=== PATIENT | female | born 1990 | race Caucasian/White ===

== ENCOUNTER 2020-06-11 07:49 | Outpatient (CLI) | payer OTHER, SELFPAY ==
--- NOTE | ~2020-06-11 | US_ITS ---
EXAMINATION: US right upper quadrant DATE: 06/11/2020 08:21 INDICATION: Right upper quadrant abdominal pain. TECHNIQUE: Multiple grayscale and Doppler ultrasound images of the abdomen were obtained. COMPARISON: None FINDINGS: The visualized portions of the head, body, and tail of the pancreas are normal. The liver i s normal without focal lesion. There is normal flow in main portal vein. The gallbladder is contracte d. No gallstones, gallbladder wall thickening, or sonographic Sheriff sign. IMPRESSION: 1. Normal right upper quadrant ultrasound. Reviewed, dictated and finalized at location A.
== END 2020-06-11 07:50 | disposition home or self-care (01) ==
PROVIDERS: PCP Family Medicine; Visit Provider Physician Assistant
DX: R10.11 Right upper quadrant pain (principal)
CPT/HCPCS: 76705

== ENCOUNTER 2020-07-23 10:59 | Emergency (ER) | payer OTHER, SELFPAY ==
--- NOTE | ~2020-07-23 | XR_ITS ---
EXAMINATION: XR chest 2V DATE: 07/23/2020 12:24 INDICATION: Right-sided chest pain TECHNIQUE: PA and lateral views of the chest are obtained. COMPARISON: None available FINDINGS: The lungs are free of acute opacities. There is no pleural effusion or pneumothorax. The ca rdiomediastinal silhouette is normal. The visualized bones and soft tissues are unremarkable. IMPRESSION: 1. No acute cardiopulmonary abnormality. Reviewed, dictated and finalized at location A. ASSEMBLER
[2020-07-23 11:18] VITALS: BP 138/86; PULSE 93; RESP 18; TEMP 37; O2SAT 100
--- NOTE | 2020-07-23 12:11 | ECG_ITS ---
Measurements Intervals [place] Rate: 61 P: 47 NM: 144 QRS: 52 QRSD: 97 T: 49 QT: 405 QTc: 408 Interpretive Statements SINUS RHYTHM INCOMPLETE RIGHT BUNDLE BRANCH BLOCK BASELINE ARTIFACT- I, II, III, AVR, AVL, AVF BORDERLINE ECG Electronically Signed On 07-23-2020 15:09:43 [facility] by Lloyd Vargas D.O.
[2020-07-23] MEDS: KETOROLAC 15 MG/ML VIAL (*BKC) IV PUSH (12:15)
[2020-07-23 12:36] LABS: Basophils Percent Auto 0.3 % (0.2-1.2); Eosinophils Percent Auto 0.3 % (0-4.4); Hematocrit 40.3 % (37.0-47.0); Hemoglobin 13.6 g/dL (12.0-15.0); Immature Granulocyte Absolute 0.02 K/mm3 (0.00-0.031); Immature Granulocyte Percent A 0.2 % (0-0.5); Lymphocytes Absolute Auto 2.26 K/mm3 (0.9-3.2); Lymphocytes Percent Auto 24.6 % (18.3-44.2); Mean Corpuscular HGB Conc 33.7 g/dl (32-36); Mean Corpuscular Hemoglobin 29.4 pg (26-34); Mean Corpuscular Volume 87.2 fl (80-100); Mean Platelet Volume 9.5 fl (7.4-10.4); Monocytes Absolute Auto 0.4 K/mm3 (0.1-0.6); Monocytes Percent Auto 4.2 % (2.6-8.5); Neutrophils Absolute Auto 6.5 K/mm3 (1.3-6.7); Neutrophils Percent Auto 70.4 % (45.5-73.1); Platelet Count Result 315 k/mm3 (150-375); Red Blood Count 4.62 M/mm3 (4.2-5.4); Red Cell Distribution Width 12.4 % (11.5-14.5); White Blood Count 9.2 K/mm3 (4.5-10.0)
[2020-07-23 12:49] LABS: Alanine Aminotransferase 16 U/L (4-35); Albumin Level 4.6 g/dL (3.5-5.1); Alkaline Phosphatase 74 U/L (38-126); Anion Gap 9 mmol/L (8-16); Aspartate Amino Transferase 21 U/L (14-36); Bilirubin,Total 0.5 mg/dL (0.2-1.3); Blood Urea Nitrogen 11 mg/dL (7-17); Calcium 9.6 mg/dL (8.4-10.2); Carbon Dioxide 26 mmol/L (22-30); Chloride 107 mmol/L (98-107); Estimated CRCL calculation 78 ml/min; Estimated Glomerular Filt Rate > 60; Glucose 88 mg/dL (65-105); Potassium 4.1 mmol/L (3.4-5.0); Sodium 142 mmol/L (137-145)
[2020-07-23 13:00] LABS: D Dimer < 0.22 ug/mL (<0.48)
--- NOTE | 2020-07-23 13:29 | ED.GENADULT ---
HPI - General Adult General Chief complaint: Unspecified Stated complaint: right rib pain/dif breatthing Time Seen by Provider: 07/23/20 11:27 Source: patient Mode of arrival: ambulatory Limitations: no limitations History of Present Illness HPI narrative: This patient is a 30 year old female who presents for evaluation of right lateral rib pain. Patient reports pain for 1.5 weeks. She describes her pain has sharp and worse with movement and breathing. She has been taking ibuprofen intermittently for her pain. Today she states he had no improvement with ibuprofen. She denies cough or fever. She reports difficulty breathing due to her pain. She denies leg swelling, calf pain or history of DVt. Related Data Allergies Allergy/AdvReac Type Severity Reaction Status Date / Time amoxicillin Allergy Intermediate SWELLING Verified 07/23/20 11:28 metronidazole Allergy Intermediate SWELLING Verified 07/23/20 11:28 bee pollen Allergy Mild Swelling Verified 07/23/20 11:28 Penicillins Allergy Mild SWELLING Verified 07/23/20 11:28 codeine Allergy Itching Verified 07/23/20 11:28 Review of Systems Review of Systems: All systems reviewed & are unremarkable except as noted in HPI and below Constitutional: Constitutional: Denies fatigue and Denies fever(s) Cardiovascular: Cardiovascular: Denies lightheadedness, Denies radiating jaw, neck or arm pain and Denies palpitations Respiratory: Respiratory: Denies chest congestion, Denies cough, Reports pain on inspiration and Reports pain with cough Gastrointestinal: Gastrointestinal: Denies abdominal pain PMFSH Past Medical History Medical History (Updated 07/23/20 @ 13:49 by Skylar Mosher MD) Patient denies medical problems Social History Social History (Updated 07/23/20 @ 13:41 by Skylar Mosher MD) Tobacco type: e-cigarettes/vaping Substance use type: marijuana Gender identity (if verbalized by the patient): Female Exam Const: General: cooperative and healthy appearing Orientation/consciousness: oriented to person, oriented to place, oriented to time and patient oriented x3 HENMT: Head: normocephalic and atraumatic Face and sinus: face symmetric Resp: Effort & Inspection: normal respiratory effort and able to speak in complete sentences GI: Inspection: normal to inspection GI Palp: No abdominal tenderness, Yes Soft to palpation, No Tenderness to palpation present (GI), No Guarding due to palpation present (GI) and No Rigid due to palpation Back/Spine/Pelvis: Back: no CVA tenderness Skin: General skin exam: normal color and no rashes or lesions noted Neuro: General: patient oriented x3 Cranial nerves: Yes CN's II-XII intact bilaterally Motor exam (neuro): 5/5 motor strength present throughout Sensory Exam: normal sensation Course Reevaluation(s) Reevaluation #1: I discussed with patient that labs and xray was unremarkable. She is negative for PE. Date: 07/23/20 Time: 13:44 Vital Signs Vital signs: Vital Signs Temperature 98.6 F 07/23/20 11:18 Pulse Rate 93 07/23/20 11:18 Respiratory Rate 18 07/23/20 11:18 Blood Pressure 138/86 07/23/20 11:18 Pulse Oximetry 100 07/23/20 11:18 Temperature 98.6 F 07/23/20 11:18 Pulse Rate 85 07/23/20 14:02 Respiratory Rate 17 07/23/20 14:02 Blood Pressure 128/74 07/23/20 14:02 Pulse Oximetry 98 07/23/20 14:02 Medical Decision Making Vital Signs Vital Signs: Vital Signs Temperature 98.6 F 07/23/20 11:18 Pulse Rate 93 07/23/20 11:18 Respiratory Rate 18 07/23/20 11:18 Blood Pressure 138/86 07/23/20 11:18 Pulse Oximetry 100 07/23/20 11:18 Temperature 98.6 F 07/23/20 11:18 Pulse Rate 85 07/23/20 14:02 Respiratory Rate 17 07/23/20 14:02 Blood Pressure 128/74 07/23/20 14:02 Pulse Oximetry 98 07/23/20 14:02 Lab Data Lab results reviewed: Yes I reviewed the patient's lab results. Result diagrams: 07/23/20 12:28
[2020-07-23 14:02] VITALS: BP 128/74; PULSE 85; RESP 17; O2SAT 98
== END 2020-07-23 14:03 | disposition home or self-care (01) ==
PROVIDERS: Emergency Provider General Practice; PCP Family Medicine
DX: R07.9 Chest pain, unspecified (principal); F17.290 Nicotine dependence, other tobacco product, uncomplicated; I45.10 Unspecified right bundle-branch block
CPT/HCPCS: 36415; 71046; 80053; 81025; 85025; 85380; 93005; 96374; 99284; J1885

== ENCOUNTER 2023-11-12 13:25 | Emergency (ER) | payer OTHER, SELFPAY ==
--- NOTE | ~2023-11-12 | CT_ITS ---
EXAMINATION: CT abdomen pelvis w con INDICATION: Left flank pain TECHNIQUE: Computed tomographic images of the abdomen and pelvis were obtained after the administrati on of 100 cc of Omnipaque 350 intravenous contrast. The dose-length product (DLP) was 259.07 mGy-cm. Automated exposure control and iterative reconstruction technique were employed. COMPARISON: None available FINDINGS: The lung bases are clear. The heart size is normal. The liver, spleen, pancreas, gallbladde r, and adrenal glands are normal. The kidneys are unremarkable. No pathologically enlarged abdominal or pelvic lymph nodes are identified. No free intraperitoneal gas or evidence of bowel obstruction. A n IUD is present in expected position. IMPRESSION: 1. No CT correlate for the patient's symptoms. Reviewed, dictated and finalized at location B. ETIC INTERN
[2023-11-12 13:29] VITALS: BP 131/88; PULSE 77; RESP 20; TEMP 36.9; O2SAT 100
--- NOTE | 2023-11-12 13:58 | ED.BACK ---
HPI - Back Pain/Injury General Chief Complaint: Urogenital-Female Stated Complaint: kidney stone Time Seen by Provider: 11/12/23 13:43 Source: patient Mode of arrival: ambulatory Limitations: no limitations History of Present Illness HPI Narrative: This is a 33-year-old female that presents to the emergency department for left flank pain. Ongoing over the last couple of days. No known injuries or trauma. No known alleviating or exacerbating factors. The pain is associated with nausea. Denies fevers, vomiting, dysuria, or hematuria. Related Data Allergies Allergy/AdvReac Type Severity Reaction Status Date / Time amoxicillin Allergy Intermediate SWELLING Verified 11/12/23 14:30 metronidazole Allergy Intermediate SWELLING Verified 11/12/23 14:30 bee pollen Allergy Mild Swelling Verified 11/12/23 14:30 Penicillins Allergy Mild SWELLING Verified 11/12/23 14:30 codeine Allergy Itching Verified 11/12/23 14:30 Review of Systems Review of Systems: CONSTITUTIONAL: Denies fever GASTROINTESTINAL: Denies abdominal pain, nausea, vomiting GENITOURINARY: Denies dysuria or hematuria. SKIN: Denies rash MUSCULOSKELETAL: Reports back pain NEUROLOGIC: Denies numbness, or weakness. All systems reviewed & are unremarkable except as noted in HPI and below PMFSH Past Medical History Medical History (Updated 11/12/23 @ 16:26 by Yara Almanza PA-C) Patient denies medical problems Social History Social History (Updated 07/23/20 @ 13:41 by Skylar Mosher MD) Tobacco type: e-cigarettes/vaping Substance use type: marijuana Gender identity (if verbalized by the patient): Female Exam Narrative: GENERAL: Well-appearing, well-nourished, and in no acute distress. HEAD: Normocephalic, atraumatic. EYES: EOMI. CHEST: Clear to auscultation. No respiratory distress. No wheezes rales or rhonchi HEART: Regular rate and rhythm. No murmur heard. Normal peripheral pulses. ABDOMEN: Soft, nontender, nondistended, normal active bowel sounds. No CVA tenderness BACK: No midline spinal tenderness EXTREMITIES: Normal range of motion. No edema. Normal gait SKIN: Warm, dry, no rash. NEURO: No focal deficits. Alert and oriented x3. PSYCH: Normal mood and affect Course Course Emergency Course: Patient updated on her workup and agrees with plan of care Vital Signs Vital signs: Vital Signs Temperature 98.4 F 11/12/23 13:29 Pulse Rate 77 11/12/23 13:29 Respiratory Rate 20 11/12/23 13:29 Blood Pressure 131/88 11/12/23 13:29 Pulse Oximetry 100 11/12/23 13:29 Oxygen Delivery Room Air 11/12/23 13:29 Temperature 98.4 F 11/12/23 13:29 Pulse Rate 77 11/12/23 13:29 Respiratory Rate 20 11/12/23 13:29 Blood Pressure 131/88 11/12/23 13:29 Pulse Oximetry 100 11/12/23 13:29 Oxygen Delivery Room Air 11/12/23 13:29 MDM - Back Pain/Injury MDM Narrative Medical decision making narrative: Patient presents to the emergency department for left flank pain ongoing over the last couple of days. She is afebrile and nontoxic appearing. Her vitals are stable. She is neurologically intact. CBC metabolic panel without concerning findings. UA without evidence of infection. test is negative. CT abdomen and pelvis is without acute findings. Patient was updated on her workup and agrees with plan of care. She is to follow up with her primary provider. She was given warnings to return to the ER Differential Diagnosis Differential diagnosis: Likely lumbar radiculopathy, strain of lumbar region and renal colic Lab Data Attestation: I reviewed the patient's lab results. 11/12/23 14:03 11/12/23 14:03 Labs: Lab Results 11/12/23 Range/Units 14:03 WBC 7.8 (4.5-10.0) K/mm3 RBC 4.78 (4.2-5.4) M/mm3 Hgb 14.5 (12.0-15.0) g/dL Hct 43.3 (37.0-47.0) % MCV 90.6 (80-100) fl MCH 30.3 (26-34) pg MCHC 33.5 (32-36) g/dl RDW 12.4 (11.5-14.5) % Plt Co
[2023-11-12 14:21] LABS: Basophils Percent Auto 0.4 % (0.2-1.2); Eosinophils Absolute Auto 0.1 K/mm3 (0-0.3); Eosinophils Percent Auto 0.8 % (0-4.4); Hematocrit 43.3 % (37.0-47.0); Hemoglobin 14.5 g/dL (12.0-15.0); Immature Granulocyte Absolute 0.02 K/mm3 (0.00-0.031); Immature Granulocyte Percent A 0.3 % (0-0.5); Lymphocytes Absolute Auto 2.79 K/mm3 (0.9-3.2); Mean Corpuscular HGB Conc 33.5 g/dl (32-36); Mean Corpuscular Hemoglobin 30.3 pg (26-34); Mean Corpuscular Volume 90.6 fl (80-100); Mean Platelet Volume 9.7 fl (7.4-10.4); Monocytes Absolute Auto 0.3 K/mm3 (0.1-0.6); Monocytes Percent Auto 4.4 % (2.6-8.5); Neutrophils Absolute Auto 4.5 K/mm3 (1.3-6.7); Neutrophils Percent Auto 58.1 % (45.5-73.1); Platelet Count Result 319 k/mm3 (150-375); Red Blood Count 4.78 M/mm3 (4.2-5.4); Red Cell Distribution Width 12.4 % (11.5-14.5); White Blood Count 7.8 K/mm3 (4.5-10.0)
[2023-11-12] MEDS: ACETAMINOPHEN 500 MG TABLET 1000 MG PO (14:22)
[2023-11-12 14:24] LABS: Appearance Urine Clear (Clear); Bilirubin Urine Negative (Negative); Blood Urine Negative (Negative); Color Urine Yellow (Yellow); Glucose Urine UA Negative (Negative); Ketones Urine Negative (Negative); Leukocyte Esterase Ur Negative LEU/UL (Negative); Nitrate Urine Negative (Negative); Protein Urine Negative (Negative); Specific Grav Ur 1.008 (1.001-1.035); Urobilinogen Urine 0.2 mg/dL (<2.0); pH Urine 6.5 (5.0-9.0)
[2023-11-12 14:32] LABS: Add Urine Microscopic? NO; Alanine Aminotransferase 27 U/L (6-35); Albumin Level 4.9 g/dL (3.5-5.1); Alkaline Phosphatase 59 U/L (38-126); Anion Gap 6 mmol/L (8-16); Aspartate Amino Transferase 33 U/L (14-36); Bilirubin,Total 0.9 mg/dL (0.2-1.3); Blood Urea Nitrogen 12 mg/dL (7-17); Calcium 9.8 mg/dL (8.4-10.2); Carbon Dioxide 27 mmol/L (22-30); Chloride 103 mmol/L (98-107); Estimated CRCL calculation 76 ml/min; Estimated Glomerular Filt Rate > 60; Glucose 82 mg/dL (65-110); Lipase 93 U/L (23-300); Potassium 4.1 mmol/L (3.4-5.0); Sodium 136 mmol/L (137-145)
== END 2023-11-12 16:37 | disposition home or self-care (01) ==
PROVIDERS: Emergency Provider Physician Assistant; PCP Family Medicine
DX: R10.9 Unspecified abdominal pain (principal); F17.290 Nicotine dependence, other tobacco product, uncomplicated
CPT/HCPCS: 36415; 74177; 80053; 81003; 81025; 83690; 85025; 99284; A9270; Q9967

== ENCOUNTER 2024-12-01 08:29 | Outpatient (CLI) | payer OTHER, SELFPAY ==
--- OUTSIDE RECORDS SUMMARY | 2024-12-01 08:51 | XMS_ITS | Data Portability ---
Author Organization [facility] Winsome Magdaleno Address [address] [place] [address] Care Team Providers Care Medieval English Literature Professor Name Role Phone SANATERRY Primary Care Provider [phone] EULA CARDOSO Primary Care Provider Unavailabl e Assessment Encounter Date Assessment Date Assessment LastModified by Organization Details LastModified Time 04/10/2022 04/10/2022 20 lbb weight loss in 2 years Not available 04/10/2022 14:31:07 Plan of Treatment Reminders Order Date Submit Date Provider Last Modified By Organization Details Last Modified Time Details Appointments None recorded. Lab None recorded. Referral distance education teacher & immunologis t referral 2022 023 ced Geller, [address] [facility], [place], [address], 3 11:39:28 ophthalmolo gist referral 2022 023 Anne Cespedes MD, [address] [place], [address], 3 14:04:08 general surgeon referral 2021 022 ced Rivas MD, [address] [facility] [address], [address], [place], [address], 2 12:04:41 Procedures None recorded. Surgeries None recorded. Imaging None recorded. Medication Orders dicyclomine 10 mg capsule 2022 023 [email or web address] [id number], [address], [place], [address], 3 17:09:07 ondansetron HCl 4 mg tablet 2022 023 JOSE ALBERTO [id number], [address] [place], [address], 3 16:11:58 albuterol sulfate HFA 90 mcg/actuati on aerosol inhaler 2022 023 JOSE ALBERTO [id number], [address] [facility], [place], [address], 3 16:17:23 Maxitrol 3.5 mg/mL-10,00 0 unit/mL-0.1 % eye drops,suspe nsion 2022 023 [email or web address] [facility] [id number], [address], 3 16:05:00 Zithromax Z-[place] 250 mg tablet 2020 021 [email or web address] [facility] [id number], [address], 14:11:02 ofloxacin 0.3 % ear drops 2020 021 [email or web address] [facility] [id number], [address], 14:14:41 Patient TargetsNo targets recorded. Patient Instructions Encounter Date Encounter Id Patient Instructions Last Modified By Organization Details Last Modified Time 12/19/2020 [id number] ear infection (otitis media): care instructions Not available 12/20/2020 07:44:51 01/01/2023 [id number] Ret if still symptomatic in 1 month. 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 Ref erral for Allergic rhinitis allergies not responsive PO meds Referring Physician: Alona Holden [facility], Encounter Date: 11/27/2022 Security Assessor Referral for Hordeolum internum of upper eyelid of right eye Referring Physician: Alona Holden [facility], Encounter Date: 11/27/2022 Problems Name Problem SNOMED Code Status Onset Date Resolution Date Notes Provider Name and Address Organization Details Recorded Time Hemorrhoids 42580052 Active 2021 AYAZ WAGNER Attn: Zeny cyndi,[address] [facility], [place], [address], [facility] 2 14:43:09 Elevated blood-pressure reading without diagnosis of hypertension 967457067 Active 2021 AYAZ WAGNER Attn: Zeny hanna,[address] [facility], [place], [address], [facility] 2 14:43:10 Problem Notes None recorded. Procedures Surgical History Date Name Laterality Status Provider Name and Address Organization Details Recorded Time 03/22/2020 Date of Last Pap Smear completed Tracee Toro MA [facility] 06/05/2020 10:54:54 Imaging Results None recorded. Procedure Notes None recorded. Medical Equipment None Reported. Allergies Allergen ID Allergen Name Allergen Category Reaction Reaction Severity Criticality Documentation Date Start Date Code Code System Note Provider Name and Address Organization Details Recorded Time 884177 Product containin g penicilli n (product) medicatio n abdominal pain Not available Not available 11/19/2019 11688 8001 SNOMED Not Available Not Available Not Available 847315 amoxicill in medicatio n cough Not available Not available 11/19/2019 723 RxNorm Not Available Not Available Not Available 838311 codeine medicatio n itching Not available Not available 06/05/2020 2670 RxNorm nause as, red skin Not Available Not Available Not Available Medications Name Sig Start Date Stop Date Status Note LastModified by Organization Details LastModified Time cyclobenzap rine 10 mg tablet Take 1 tablet twice a day by oral route as needed for 7 days. 12/12 completed Not Available Not Available Not Available lidocaine HCl 10 mg/mL (1 %) injection solution Take 1 mL by injection route. 12/12 completed Not Available Not Available Not Available doxycycline hyclate 100 mg capsule Take 1 capsule twice a day by oral route for 5 days. 12/12 completed Not Available Not Available Not Available cefuroxime axetil 250 mg tablet 11/19 completed Not Available Not Available Not Available clindamycin HCl 300 mg capsule Take 1 capsule twice a day by oral route for 14 days. 12/12 completed Not Available Not Available Not Available azithromyci n 250 mg tablet TAKE 2 TABLETS (500 MG) BY ORAL ROUTE ONCE DAILY FOR 1 DAY THEN 1 TABLET (250 MG) BY ORAL ROUTE ONCE DAILY FOR 4 DAYS 04/10 completed Not Available Not Available Not Available ondansetron HCl 4 mg tablet Take 2 tablets twice a day by oral route as needed for 7 days. 2022 active Not Available Not Available Not Avai lable prednisone 20 mg tablet 06/05 completed Not Available Not Available Not Available spironolact one 100 mg tablet TAKE 1 TABLET BY MOUTH EVERY DAY 04/10 completed Not Available Not Available Not Available clindamycin HCl 150 mg capsule 11/19 completed Not Available Not Available Not Available hydrocortis one 2.5 % topical cream with perineal applicator 11/19 completed Not Available Not Available Not Available ofloxacin 0.3 % ear drops INSTILL 10 DROPS INTO AFFECTED EAR(S) BY OTIC ROUTE ONCE DAILY 04/10 completed Not Available Not Available Not Available Sensorcaine 0.25 % (2.5 mg/mL) injection solution Take 1 mL by injection route. 04/10 completed Not Available Not Available Not Available hydrocodone 7.5 mg-acetamin ophen 325 mg tablet 06/05 completed Not Available Not Available Not Available oseltamivir 75 mg capsule 06/05 completed Not Available Not Available Not Available neomycin-po lymyxin-dex ameth 3.5 mg/mL-10,00 0 unit/mL-0.1 % eye drops INSTILL 1 DROP INTO RIGHT EYE EVERY 6 HOURS 05/20 completed Not Available Not Available Not Available ibuprofen 600 mg tablet 05/20 completed Not Available Not Available Not Available methylpredn isolone 4 mg tablets in a dose pack 04/10 completed Not Available Not Available Not Available albuterol sulfate HFA 90 mcg/actuati on aerosol inhaler INHALE 2 PUFFS EVERY 4 HOURS DIRECTED FOR 30 DAYS active Not Available Not Available No t Available fluticasone propionate 50 mcg/actuati on nasal spray,suspe nsion SPRAY 1 SPRAY EVERY DAY BY INTRANASA L ROUTE 04/10 completed Not Available Not Available Not Available dicyclomine 10 mg capsule TAKE 1 CAPSULE BY MOUTH TWICE A DAY NEEDED FOR 7 DAYS active Not Available Not Available No t Available loratadine 10 mg tablet Take 1 tablet every day by oral route for 90 days. 04/10 completed Not Available Not Available Not Available etonogestre l 0.12 mg-ethinyl estradiol 0.015 mg/24 hr vaginal ring 06/05 completed Not Available Not Available Not Available cyclobenzap rine 5 mg tablet 12/12 completed Not Available Not Available Not Available June 10/11 (21) 1 mg-20 mcg tablet TAKE 1 TABLET BY MOUTH EVERY DAY 04/10 completed Not Available Not Available Not Available Tamiflu 11/19 completed Not Available Not Available Not Available Robitussin Cough and Cold CF 2.5 mg-5 mg-50 mg/5 mL oral liquid Take 20 mL 3 times a day by oral route as needed. 06/05 completed Not Available Not Available Not Available Slynd 4 mg (28) tablet TAKE 1 TABLET BY MOUTH EVERY DAY 05/20 completed Not Available Not Available Not Available Flucelvax Quad (PF) 60 mcg (15 mcg x 4)/0.5 mL IM syringe 04/10 completed Not Available Not Available Not Available Vitals Date Recorded Body height Provider Name an d Address Organization Details Last Updated DateTime 12/19/2020 162.56 cm Tracee Toro [place] - [facility] 2020 10:06:49 Date Recorded Heart rate Body temperature Body weight Body mass index (BMI) Body height Respiratory rate Oxygen saturation Oxygen saturation in Arterial blood by Pulse oximetry Systolic blood pressure Diastolic blood pressure Provider Name and Address Organization Details Last Updated DateTime 2 95 /min 98.5 [degF] 10974.0 3 g 21.9 kg/m2 162.56 cm 16 /min 99 % 99 % 122 mm[Hg] 88 mm[Hg] Boyd Ho MA [facility] 2 14:09:31 Date Recorded Body height Body mass index (BMI) Body weight Oxygen saturation Oxygen saturation in Arterial blood by Pulse oximetry Heart rate Respiratory rate Body temperature Systolic blood pressure Diastolic blood pressure Provider Name and Address Organization Details Last Updated DateTime 3 162.56 cm 21.5 kg/m2 19886.5 g 97 % 97 % 82 /min 16 /min 98 [degF] 124 mm[Hg] 78 mm[Hg] Ita Brenner CMA [facility] 3 12:33:13 Date Recorded Body height Body temperature Heart rate Systolic blood pressure Diastolic blood pressure Provider Name and Address Organization Details Last Updated DateTime 01/01/2023 162.56 cm 97.1 [degF] 88 /min 143 mm[Hg] 95 mm[Hg] Tracee Funesborn [facility] 3 14:09:28 Date Recorded Body height Body mass index (BMI) Body weight Oxygen saturation Oxygen saturation in Arterial blood by Pulse oximetry Heart rate Respiratory rate Body temperature Systolic blood pressure Diastolic blood pressure Provider Name and Address Organization Details Last Updated DateTime 3 162.56 cm 22.4 kg/m2 33185.1 1 g 98 % 98 % 83 /min 16 /min 98.1 [degF] 116 mm[Hg] 83 mm[Hg] Ita Brenner CMA [facility] 3 16:04:05 Social History Question Answer Notes LastModified by Organizat ion Details LastModified Time Tobacco Smoking Status Never Smoker Óscar Kraus MA [facility], [facility] 11/19/2019 11:30:26 Do You Have An Advance Directive? No Information not available 01/01/2023 What Is Your Level Of Alcohol Consumption? Occasional Information not available 06/05/2020 What Is Your Level Of Caffeine Consumption? Moderate Daily. Information not available 06/05/2020 In The 14 Days Before Symptom Onset, Have You Had Close Contact With A Laboratory-confir med COVID-19 While That Case Was Ill? No Information not available 12/12/2020 In The 14 Days Before Symptom Onset, Have You Had Close Contact With A Person Who Is Under Investigation For COVID-19 While That Person Was Ill? No Information not available 12/12/2020 Have You Been To An Area Known To Be High Risk For COVID-19? 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 Information not available 04/10/2022 Do You Or Have You Ever Used E-cigarettes Or Vape? Current User Of Electronic Cigarettes Information not available 08/02/2020 Hard Of Hearing Or Deaf In One Or Both Ears? No Information not available 06/05/2020 Legally Blind In One Or Both Eyes? No Information no t available 06/05/2020 Live Alone Or With Others? With Others Information not available 06/05/2020 Do You Have A High School Diploma Or Higher Education? Yes Information not available 04/10/2022 Do You Sometimes Have To Miss Your Medical Appointments Due To Difficult Getting Transportation? No Information not available 04/10/2022 Do You Feel Unfairly Treated Due To Things Such As Race, Age, Gender, Disability Or Some Other Reason? No Information not available 04/10/2022 Do You Feel Physically And Emotionally Safe While Living At Home? Yes Information not available 04/10/2022 Do You Feel Physically And Emotionally Safe In Your Neighborhood Or Other Public Places? Yes Information not available 04/10/2022 Do You Have A Medical Power Of Professor Of English? No Information not available 01/01/2023 What Was The Date Of Your Most Recent Tobacco Screening? 05/20/2023 Information not available 05/20/2023 How Many Children Do You Have? 1 Information not available 06/05/2020 What Is Your Relationship Status? Single Information not available 04/10/2022 Are You Sexually Active? No Information not available 04/10/2022 Do You Have Smoke And Carbon Monoxide Detectors In Your Home? Yes Information not available 12/12/2020 Are You Passively Exposed To Smoke? Yes Information no t available 04/10/2022 Do You Or Have You Ever Used Smokeless Tobacco? Never Used Smokeless Tobacco Information not available 06/05/2020 How Much Tobacco Do You Smoke? No Information not available 06/05/2020 General Stress Level Medium Information not available 06/05/2020 Do You Use Any Illicit Or Recreational Drugs? Yes Information not available 04/10/2022 Has Tobacco Cessation Counseling Been Provided? No Information not available 04/10/2022 On What Date Was Tobacco Cessation Counseling Provided? 05/20/2023 Information not available 05/20/2023 Sex: Female Functional Status Question Answer Note LastModified by Organization D etails LastModified Time Are you able to care for yourself? Yes Information not available 06/05/2020 What is your exercise level? Moderate Information not available 06/05/2020 Mental Status None recorded. Family History Relationship Description Onset Age of this Age Resolved Age Notes LastModified by Organization Details LastModified Time Father Heart disease 53 [email or web address] Not available 2021 14:45:33 Maternal Grandfather Diabetes mellitus [email or web address] Not available 11:30:19 Medical History Condition Response Coronary Artery Disease N Other Y High Blood Pressure N Atrial Fibrillation N Thyroid Problems N Kidney or Bladder Problems N GI Problems N Depression N COPD N Blood Clots N Skin Problems N Anemia N Heart Attack (HI) N Anxiety Disorder N Diabetes N Muscle, Joint, or Bone Problems N Seizures/Epilepsy N Acid Reflux (GERD) N Cancer N Stroke N Asthma Y Allergies N High Cholesterol N Hepatitis N Liver Disease N Headaches N Osteoporosis N Heart Failure N Gynecological History Statement/Question Response Flow Moderate Date of LMP Frequency of Cycle (Q days) 28 Menses Monthly Y Date of Last Pap Smear 03/22/2020 Age at Menarche 14 Current Control Method BCPs Age at First Child 28 Obstetrics History GPAL:G 1 P 1 0 0 1 Type Value Multiple Births 0 Full Term 1 Induced 0 Spontaneous 0 Premature 0 Living 1 Ectopics 0 Total 1 Past Encounters Encounter ID Performer Location Encounter Start Date Encounter Closed Date Diagnosis/Indication Diagnosis SNOMED-CT Code Diagnosis ICD10 Code Diagnosis Note [id number] AYAZ WAGNER [facility] [address] [place] [address] 11/19/2019 11:03:36 11/19/2019 16:25:49 Upper respiratory infection 74761228 J06.9 5 days of URI. No fever or chills right now. tested negative for flu/strep at [facility] on friday. On exam patient has mild cough. TM clear. Lungs clear. afebrile. - tea, soup, honey for throat- may take robitussin for cough, she is breast feeding and I advised not taking if not needed- f/u if worsening or not improving in the next 72 hours- wash hands to avoid spread of germs [id number] AYAZ WAGNER [facility] [address] [place] [address] 06/05/2020 10:51:15 06/07/2020 13:05:43 Right upper quadrant pain 231340868 R10.11 Patient presents for problems with my gallbladde r x yearspain worse with eating, lasts a few hours and happens frequently . some blood in stool but states due to hemorrhoid s. Denies fever, chills, jaundice, sob, cp, black/dark stools. - labs- US gallbladde r- may need PPI tx and EGD- ER if jaundice , fever, chills [id number] AYAZ WAGNER [facility] [address] [place] [address] 07/20/2020 11:54:02 07/21/2020 08:48:26 Infection of skin 098265854 L08.9 patient toe is draining, swollen, painful. Denies streak going up leg, fever, chills. doxycyclin e due to allergy with penicillin . Ingrowing toenail 801190 009 L60.0 Patient has been struggling with ingrown toenail for a few months. Recently has gotten infected and is draining puss, red, and painful. Will treat with doxy and she swells up with penicillin and has never tried cephalospo rin. After patient finishes antibiotic she is to f/u with radiographer . [id number] SREEDHAR HINOJOSABARBTristan [facility] [address] [place] [address] 08/02/2020 14:02:38 08/02/2020 17:10:17 Ingrowing nail 666102233 L60.0 [id number] SREEDHAR SCHILLINGBARB HUGHESTristan [facility] [address] [place] [address] 08/23/2020 14:19:37 09/04/2020 09:32:24 Ingrowing nail 819944775 L60.0 [id number] SREEDHAR HINOJOSABARBTristan [facility] [address] [place] [address] 09/06/2020 13:53:51 09/07/2020 12:18:48 Ingrowing nail 636609200 L60.0 [id number] AYAZ WAGNER [facility] [address] [place] [address] 12/12/2020 08:04:37 12/12/2020 11:12:04 Seasonal allergic rhinitis 504010982 J30.2 patient with season allergies states vicks spay, benadryl and anaya are not helping much. will change to claritin and flonase for symptom relief. COVID test as she also lost smell/tast e, developed diarrhea and aunt has similar symptoms. Exposure t o SARS-CoV-2 247878940 Z20.822 loss of smell and taste, diarrhea. D/w pt the current pandemic of COVID-19 and call for social isolation in order to blunt the curve and minimize risk and spread. Encouraged patient and family to take restrictio ns seriously. They have verbalized understand ing of such. [id number] AYAZ WAGNER [facility] [address] [place] [address] 12/19/2020 08:07:39 12/20/2020 13:09:11 Acute left otitis media 278460895 H66.92 - zpack due to allergy and ear drops due to ear drainage - avoid qtips in ears - Tylenolfor pain - f.u if not improving [id number] AYAZ WAGNER [facility] [address] [place] [address] 04/10/2022 13:37:28 04/11/2022 09:50:04 Elevated blood-pressure reading without diagnosis of hypertension 596583742 R03.0 122/88 today. Was taken off estroen OCP and palced on POP. She is to moniot and write down BP this week and send me on portal. Dad at 53 from cardiac related issues. - she is eating healthy diet- drinks mainly water- she is excercisin g Hemorrhoids 02267983 K64 .9 internal hemorrhoid . creams have not worked. Anxiety 69569461 F41.9 Patient reports some anxiety. Managing well with excercise, healthy diet, mediation, spening time with famnily and sleeping well. will moniot. list of counselors given to patient to call and schedule therapy. Ultraviole t-induced skin pigmentation - tanning 584888884 L56.8 advised not to tidwell, wear sunscreen outside [id number] AYAZ MOORE [facility] [address] [place] [address] 11/27/2022 12:13:40 11/27/2022 14:24:13 Hordeolum internum of upper eyelid of right eye 1594120538 54631 H00.021 x1 yrpt showed provider picture of stye yesterday to R upper inner eyelidnone visible on exam todayPEx- nlrefer to eye Allergic rhinitis 930750 04 J30.9 c/o rhinorrhea has tried anaya, claritin and zyrtec w/o reliefrefe r to distance education teacher Depression screening 171 778781 Z13.31 PHQ 0 [id number] Anne Cespedes MD [facility] [address] [facility] [place] [address] 01/01/2023 13:57:37 01/02/2023 12:37:14 Chalazion of right upper eyelid 4352475636 93200 H00.11 [id number] AYAZ MOORE [facility] [address] [place] [address] 05/20/2023 15:54:41 05/22/2023 11:57:14 Nausea 583684539 R11.0 x3 daysa/w abd pain and diarrheatr ial zofrankeep diet bland Abdominal pain 07858889 R10.9 x3 daysa/w nausea and diarrheaac ross her lower abdomensta bbing/simeon p related to having BM or coughingno concerning sxPEx- mild TTP suprapubic most likely viral gastroente ritistrial dicyclomin e- 30 minutes after taking nausea medicine, begin with sips of clear liquids. If able to hold down 2 4 ounces for 30 minutes, begin drinking more.- Increase your fluid intake to replace losses.- Clear liquids only for 24 hours (water, tea, sport drinks, clear flat tamar yong or cola and juices, broth, jello, popsicles, ect).- Advance to bland foods, applesauce , rice, baked or boiled chicken, ect.- Avoid milk, greasy foods and anything that doesn t agree with you.- If vomiting persists and you are unable to hold fluids, return here or go to the ER.- If diarrhea persists more than 4 days, or becomes bloody, or if you develop high fever or abdominal pain, return here, see your doctor or go to the ER.-If symptoms worsen or do not improve seek immediate re-evaluat ion History of asthma 214286 007 Z87.09 c/o chest tightness with working out, feels like she can't get a deep breath inh/o asthma as a young childreque sting albuterol inhaler Depression screening 171 495904 Z13.31 PHQ 0 Health Concerns Section Related Observation LastModified by Organization Detai ls LastModified Time None Recorded Concern Status LastModified by Organization Details LastModified Time None Recorded Advance Directives Directive N: Payers Encounter Date Sequence Insurance Name Policy Number Policy Christianson Covered Member ID Christianson Member ID Guarantor Name 12/19/2020 1 [facility] PRIOR TO 03/22/2021 (MEDICAID REPLACEMENT - HMO) Leoncio Lazaro [id number] Leoncio Lazaro 04/10/2022 1 [facility] PRIOR TO 03/22/2021 (MEDICAID REPLACEMENT - HMO) Leoncio Lazaro [id number] Leoncio Lazaro 11/27/2022 1 [facility] ON OR AFTER 03/22/21 (MEDICAID REPLACEMENT - O) Leoncio Lazaro [id number] Leoncio Lazaro 01/01/2023 1 [facility] ON OR AFTER 03/22/21 (MEDICAID REPLACEMENT - O) Leoncio Lazaro [id number] Leoncio Lazaro 05/20/2023 1 [facility] ON OR AFTER 03/22/21 (MEDICAID REPLACEMENT - O) Leoncio Lazaro [id number] Leoncio Lazaro Notes Date Note Type Note Provider Name and Address Organization Details Recorded Time 12/19/2020 text/html Sinusitis/Allerg yRepor ruben bypatient.Associated Symptoms:no nasal discharge; no fever; no weight loss; no hemoptysis; no hematemesis; no difficulty breathing; no feeling of strangulation; no nausea or vomiting; no facial pain; no sinus pain; no sore throat; no thick phlegm in throat; not constantly clearing the throat; no nasal discharge; no nasal passage blockage; no ear fullness; no pain behind the eyes; no skin itching;headache;nasal itching;eye itching Onset/Timing:resolved Quality:no pain; no itching; no hoarseness; no throbbing; minimal discomfort; improving;congested;wa tering Duration:resolved; frequent Severity:no pain; does not limit daily activities; no nosebleeds (epistaxis); no snoring;frequent breathing through the mouth Context:no recent upper respiratory infection; no recent sick contacts; not worse around animals; not worse around pollen; not worse around dust; not worse around molds; not worse with environmental exposure; not worse when mowing grass; not worse with certain foods; not worse with odors;worse with seasonal allergen exposure Risk Factors:no history of smoking; no increased stress; no family history of allergies; no history of nasal trauma; no allergy to aspirin; no history of nasal polyps; no history of asthma; no chemotherapy; no DM; no HIV; no immunodeficiency Aggravating factors:not worse with change in medication; not worse during an upper respiratory infection (a cold); not worse when allergies are active left ear pain x 4 days Patient started having congestion last week that then developed into loss of smell and taste. Her aunt also has similar symptoms. She takes advil cold and sinus, anaya and benadryl without much relief. She also started having diarrhea at the same time. Now she is having left ear pain with drainage and tylenol not helping. denies fever, cough, chest pain , nausea, vomiting AYAZ WAGNER Attn: Accounting,[address], [place], [address], [facility] 12/20/2020 07:45:36 04/10/2022 text/html Leoncio presents for physcial BP 142/92 and dropped 140/90 at OBGYN office. She was token off estrogen and placed on POP.BP AT HOME 138/91 once last week. She says she had first period on this medication in years. She thinks it is making her more edgy. She excercises, sleeps well, spends time with family, enjoys hobbies like cooking and is doing some medication. She also tans at the gym. She reports bothersome hemorrhoids for years and creams no longer help. denies cp, sob, palpitations AYAZ WAGNER Attn: Accounting,[address], [place], [address], [facility] 04/10/2022 14:45:45 11/27/2022 text/html Pt presents with stye to R eye x1 yr. States that inside corner of R eye gets swollen, becomes scratchy, irritating and causes vision issues. Symptoms are worse in the morning. She has used eye drops and warm compresses w/o relief. AYAZ MOORE Attn: Accounting,[address] [facility], [place], [address], [facility] 11/27/2022 13:56:37 01/01/2023 text/html C/O irritating l ump in the medial 1/3 of RUL.since a few months Anne Cespedes MD [address], [place], [address], [facility] 01/01/2023 14:32:54 05/20/2023 text/html Pt presents with abdominal pain, nausea, and diarrhea x3 days. No sick contacts. Describes abd pain as stabbing/sharp, across her lower stomach, worse when she coughs or has diarrhea. States that episodes of diarrhea range from 2-10/day. Describes as loose, watery, stomach bile, w/o blood. A/w nausea. She has been drinking water, sprite, and eating crackers. No fevers, vomiting, or constipation. 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 Status 11/19/19 20 1 CLOSED Fetus Data First Name Last Name Admitted to NICU Weight (g) Sex Living Outcome Pediatric Complications Fetus ID Race Codes Race Delivery Type [phone] [id number] Full Term [id number] Only Ryder Calculation Initial Ryder Date Initial Exam Date Initial Exam Provider Initial Ultrasound Date Last Menstrual Period Date Ultra Sound Weeks Gestation 0 Eighteen To Twenty Week Ryder Update Ultra Sound Date Fundal Height At Umbil Quickening Date Ultra Sound Latest Weeks Gestation Final Ryder Confirmed By Final Ryder Confirmed Date Final Ryder Date Ultra Sound Latest Days Gestation 0 0 Menstrual History Last Menstrual Date Menses Monthly On Bcp Conception Prior Menses Frequency Hcg Plus Date Menarche Onset Age Delivery Information Delivery Date Delivery Type Labor Anesthesia Weeks Gestation Incision Type Labor Labor Length Hrs Delivered By Post Complications Tubal Sterilization Discharge Date Comments 8 Regional-Ep idural 39 false 29.5 Discharge Information Feeding Method Contraceptive Method Maternal HG B and HCT Levels
--- OUTSIDE RECORDS SUMMARY | 2024-12-01 08:51 | XMS_ITS | Data Portability ---
Author Organization [facility] Address [address] [place] [address] Care Team Providers Care Motor Carrier Inspector Name Role Phone EULA CARDOSO Primary Care Provider [phone] Assessment Encounter Date Assessment Date Assessment LastModified by Organization Details LastModified Time 10/22/2024 10/22/2024 Patient is ___weeks . Discussed plan. Not available 10/22/2024 10:40:32 11/01/2024 11/01/2024 Patient is ___weeks . Discussed plan. [email or web address] Not available 11/01/2024 09:48:25 11/15/2024 11/15/2024 Patient is ___weeks . Discussed plan. Not available 11/15/2024 12:36:41 11/25/2024 11/25/2024 Patient is ___weeks . Discussed plan. Not available 11/25/2024 12:22:54 Plan of Treatment Reminders Order Date Submit Date Provider Last Modified By Organization Details Last Modified Time Details Appointments SURG CSection 2024 07:30A Tristan BARONE MD Not available Not available Not available SURG POST OP 2024 01:15P Tristan BARONE MD Not available Not available Not available Lab None recorded. Referral None recorded. Procedures None recorded. Surgeries section (SURG) 2024 03/13/2 025 [id number] David Surgery [facility], [address], [address], 11/04/2024 09:49:09 Imaging US, obstetric , follow-up 2024 025 [email or web address] [facility], [address], [address], [place], [address], 11/15/2024 21:14:59 Medication Orders None recorded. Patient TargetsNo targets recorded. Patient InstructionsNo instructions recorded. Reason for Referral None Reported. Results Created Date Observation Date Name Description Value Unit Range Abnormal Flag Note LastModifiedBy Organization Detail LastModifiedTime 11/15/1911/15/2024 CULTU RE: GROUP B STREP SCREE N, REFLE X SUSCE PTIBI LITY result report SEE RESULT S BELOW Test: Cultu re: Group B Strep , Refle x Susce ptibi lity ([facility]/ [facility] ) Speci men Sourc e: Vagin a/Rec katerina Speci men Type: Vagin al/Re ctal Speci men Date: 2024 1443 Resul t Date: 2024 1533 Resul t Statu s: Final resul t Abnor mal: No Resul ting Lab: [facility] [address] [facility] [address] Tel: CULTU RE ----- ----- ----- --- No Group B strep isola ruben at 2 days (dahlia ctive broth enhan cemen t) Not Available [facility] (Lab) [address] [place], [address], 11/18/2024 16:38:03 11/23/19 25 11/22/2024 CMP(C OMPRE HENSI VE METAB OLIC PANEL ) sodium 138 mmol/ L 133-14 6 Not Available [facility] (Lab) [address] [place], [address], 11/23/2024 12:55:30 11/23/19 25 11/22/2024 CMP(C OMPRE HENSI VE METAB OLIC PANEL ) potassium 4.3 mmol/ L 3.5-5. 1 Not Available [facility] (Lab) [address] [facility], [place], [address], 11/23/2024 12:55:30 11/23/19 25 11/22/2024 CMP(C OMPRE HENSI VE METAB OLIC PANEL ) chloride 103 mmol/ L 98-107 Not Available [facility] (Lab) [address] [facility], [place], [address], 11/23/2024 12:55:30 11/23/19 25 11/22/2024 CMP(C OMPRE HENSI VE METAB OLIC PANEL ) carbon dioxide 27 mmol/ L 21-31 Not Available [facility] (Lab) [address] [facility], [place], [address], 11/23/2024 12:55:30 11/23/19 25 11/22/2024 CMP(C OMPRE HENSI VE METAB OLIC PANEL ) anion gap 8 mmol/ L 4-13 Not Available [facility] (Lab) [address] [facility], [place], [address], 11/23/2024 12:55:30 11/23/19 25 11/22/2024 CMP(C OMPRE HENSI VE METAB OLIC PANEL ) blood urea nitrogen 8 mg/dL 7-25 Not Available [facility] (Lab) [address] [facility], [place], [address], 11/23/2024 12:55:30 11/23/19 25 11/22/2024 CMP(C OMPRE HENSI VE METAB OLIC PANEL ) creatinine 0.62 mg/dL 0.60-1 .30 Not Available [facility] (Lab) [address] [facility], [place], [address], 11/23/2024 12:55:30 11/23/19 25 11/22/2024 CMP(C OMPRE HENSI VE METAB OLIC PANEL ) egfrcr (CKD-epi 2020) >90 mL/mi n/1.7 3_m2 >=60 Not Available [facility] (Lab) [address] [facility], [place], [address], 11/23/2024 12:55:30 11/23/19 25 11/22/2024 CMP(C OMPRE HENSI VE METAB OLIC PANEL ) calcium 8.7 mg/dL 8.3-10 .5 Not Available [facility] (Lab) [address] [facility], [place], [address], 11/23/2024 12:55:30 11/23/19 25 11/22/2024 CMP(C OMPRE HENSI VE METAB OLIC PANEL ) glucose 58 mg/dL 70-100 low Not Available [facility] (Lab) [address] [facility], [place], [address], 11/23/2024 12:55:30 11/23/19 25 11/22/2024 CMP(C OMPRE HENSI VE METAB OLIC PANEL ) protein, total 5.9 g/dL 6.4-8. 3 low Not Available [facility] (Lab) [address] [facility], [place], [address], 11/23/2024 12:55:30 11/23/19 25 11/22/2024 CMP(C OMPRE HENSI VE METAB OLIC PANEL ) albumin 3.3 g/dL 3.5-5. 0 low Not Available [facility] (Lab) [address] [place], [address], 11/23/2024 12:55:30 11/23/19 25 11/22/2024 CMP(C OMPRE HENSI VE METAB OLIC PANEL ) ALT 16 units /L 9-43 Not Available [facility] (Lab) [address] [facility], [place], [address], 11/23/2024 12:55:30 11/23/19 25 11/22/2024 CMP(C OMPRE HENSI VE METAB OLIC PANEL ) alkaline phosphatase 159 units /L 34-104 high Not Available [facility] (Lab) [address] [place], [address], 11/23/2024 12:55:30 11/23/19 25 11/22/2024 CMP(C OMPRE HENSI VE METAB OLIC PANEL ) AST 18 units /L 13-39 Not Available [facility] (Lab) [address] [facility], [place], [address], 11/23/2024 12:55:30 11/23/19 25 11/22/2024 CMP(C OMPRE HENSI VE METAB OLIC PANEL ) bilirubin, total 0.3 mg/dL 0.2-1. 2 Not Available [facility] (Lab) [address] [facility], [place], [address], 11/23/2024 12:55:30 11/23/19 25 11/22/2024 BILE ACIDS , TOTAL bile acids, total 2 umol/ L 0-10 Test Perfo rmed by: [facility] [address] [address] Not Available [facility] (Lab) [address] [facility], [place], [address], 11/23/2024 12:55:31 10/08/19 25 10/08/2024 US, obste tric, follo w-up No observ ation record ed. [facility] [address], [place], [address], 10/08/2024 18:02:18 10/08/19 25 10/08/2024 US, obste tric, follo w-up No observ ation record ed. JOSE ALBERTO [address] [facility], [place], [address], 11/22/2024 21:56:47 11/15/19 25 11/15/2024 US, obste tric, follo w-up No observ ation record ed. [email or web address] [facility] [address], [place], [address], 11/15/2024 13:12:13 11/15/19 25 11/15/2024 US, obste tric, follo w-up No observ ation record ed. [email or web address] [address], [place], [address], 11/15/2024 22:55:12 Result Notes None recorded. Problems Name Problem SNOMED Code Status Onset Date Resolution Date Notes Provider Name and Address Organization Details Recorded Time Single live [id number] Completed 201702/28/2021 Single live ;Re corded Elsewher e: No Locat ion: [facility] S ource: EHR Guide Dog Instructor danielle: N Lizett ce ID: 0001 Johnny lable Time: 12:00:00 PM Melissa [facility] 15:45:22 Insertio n of intraute rine contrace ptive device Completed 201702/28/2021 Encounte r for insertio n of intraute rine contrace ptive device;R ecorded Elsewher e: No Locat ion: [facility] S ource: EHR Guide Dog Instructor danielle: N Lizett ce ID: 0001 Johnny lable Time: 03:15:00 PM Melissaterrence Vázquez [facility] 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 15:45:25 Rubella screenin g status [id number] Completed 201702/28/2021 Encounte r for antenata l screenin g, unspecif ied;Connor rded Elsewher e: No Locat ion: [facility] S ource: EHR Guide Dog Instructor danielle: N Sheldonti ce ID: 0001 Johnny lable Time: 10:30:00 AM Melissaterrence Vázquez [facility] 1 15:45:20 Pregnanc y, childbir th and puerperi um finding Completed 201702/28/2021 Encntr for suprvsn of normal first preg, second trimeste r;Record ed Elsewher e: No Locat ion: [facility] S ource: EHR Guide Dog Instructor danielle: N Practi ce ID: 0001 Johnny lable Time: 10:30:00 AM Melissa jackson [facility] 15:45:12 Gestatio n period, 30 weeks [id number] Completed 201702/28/2021 30 weeks gestatio n of pregnanc y;Record ed Elsewher e: No Locat ion: Noé willard [facility] S ource: EHR Guide Dog Instructor danielle: N Practi ce ID: 0001 Johnny lable Time: 04:30:00 PM Melissa jackson [facility] 15:40:54 Gestatio n period, 26 weeks [id number] Completed 201702/28/2021 26 weeks gestatio n of pregnanc y;Record ed Elsewher e: No Locat ion: [facility] S ource: EHR Guide Dog Instructor danielle: N Practi ce ID: 0001 Johnny lable Time: 02:30:00 PM Melissa jackson [facility] 15:40:52 Pregnanc y, childbir th and puerperi um finding Completed 201702/28/2021 Encntr for suprvsn of normal first preg, third trimeste r;Record ed Elsewher e: No Locat ion: No[facility] will[facility] S ource: EHR Guide Dog Instructor danielle: N Practi ce ID: 0001 Johnny lable Time: 10:00:00 AM Melissa jackson [facility] 15:45:[address] Concept Completed 201702/28/2021 Maternal care for oth abnormal ity and damage, unsp;Rec orded Elsewher e: No Locat ion: [facility] S ource: EHR Guide Dog Instructor danielle: N Practi ce ID: 0001 Johnny lable Time: 04:30:00 PM Melissa jackson [facility] 15:45:24 Gestatio n period, 22 weeks [id number] Completed 201702/28/2021 22 weeks gestatio n of pregnanc y;Record ed Elsewher e: No Locat ion: [facility] sudheer [facility] S ource: EHR Guide Dog Instructor danielle: N Practi ce ID: 0001 Johnny lable Time: 03:30:00 PM Melissa jackson [facility] 15:40:51 Contrace ption care manageme nt Completed 201802/28/2021 Encounte r for contrace ptive manageme nt, unspecif ied;Connor rded Elsewher e: No [facility] S ource: EHR Guide Dog Instructor danielle: N Practi ce ID: 0001 Johnny lable Time: 01:30:00 PM Melissa jackson [facility] 15:40:44 Normal pregnanc y in multigra reina [id number] 29629 Completed 201702/28/2021 Encounte r for suprvsn of normal pregnanc y, third trimeste r;Record ed Elsewher e: No Locat ion: Noé willard [facility] S ource: EHR Guide Dog Instructor danielle: N Practi ce ID: 0001 Johnny lable Time: 09:00:00 AM Melissa jackson [facility] 15:41:20 Antenata l screenin g for malforma tion Completed 201702/28/2021 Encounte r for antenata l screenin g for malforma tions;Re corded Elsewher e: No Locat ion: Noé willard [facility] S ource: EHR Guide Dog Instructor danielle: N Practi ce ID: 0001 Johnny lable Time: 04:00:00 PM Melissa jackson [facility] 15:40:42 Pregnanc y detectio n examinat ion Completed 201702/28/2021 Encounte r for pregnanc y test, result positive ;Recorde d Elsewher e: No Locat ion: [facility] S ource: EHR Guide Dog Instructor danielle: N Practi ce ID: 0001 Johnny lable Time: 03:30:00 PM Melissa jackson [facility] 15:42:02 Pregnanc y test negative [id number] Completed 201702/28/2021 Encounte r for pregnanc y test, result negative ;Recorde d Elsewher e: No Locat ion: [facility] S ource: EHR Guide Dog Instructor danielle: N Practi ce ID: 0001 Johnny lable Time: 03:15:00 PM Melissa jackson [facility] 15:45:09 Amenorrh ea [id number] Completed 201702/28/2021 Amenorrh ea;Recor ded Elsewher e: No Locat ion: [facility] S ource: EHR Guide Dog Instructor danielle: N Practi ce ID: 0001 Johnny lable Time: 03:30:00 PM Melissa jackson [facility] 15:40:37 Antenata l screenin g Completed 201702/28/2021 Encounte r for other specifie d antenata l screenin g;Practi ce ID: 0001 Melissa jackson, [facility] 15:40:40 Pregnanc y-induce d hyperten moi Completed 201702/28/2021 Gestatio nal htn w/o signific ant proteinu blayne, unsp trimeste r;Practi ce ID: 0001 Melissa jackson, [facility] 15:45:17 Gestatio n period, 38 weeks [id number] Completed 201702/28/2021 38 weeks gestatio n of pregnanc y;Practi ce ID: 0001 [facility] 15:40:58 Head not engaged [id number] Completed 201702/28/2021 Maternal care for high head at term, not applicab le or unsp;Pra ctice ID: 0001 Melissa Vázquez [facility] 15:41:13 Failure of cervical dilation 3178582 Completed 201702/28/2021 Primary inadequa te contract ions;Pra ctice ID: 0001 Melissa Vázquez [facility] 15:40:48 Gestatio n period, 39 weeks 09272506 Completed 201702/28/2021 39 weeks gestatio n of pregnanc y;Practi ce ID: 0001 Melissa Vázquez [facility] 15:41:00 Lochia finding Completed 201702/28/2021 Encounte r for routine postpart um follow-u p;Practi ce ID: 0001 Melissa Vázquez [facility] 15:41:18 Contrace ptive sheath status [id number] Completed 201802/28/2021 Encounte r for routine checking of intraute rine contrace p dev;Prac trinidad ID: 0001 Melissa Vázquez [facility] 15:40:46 Pregnanc y 96136686 Active 2023 Joyce Lugo [facility] 4 13:13:47 Past pregnanc y history of section 450450025 Active NRFHR, failure to progress , TO REPEAT Keny Barone MD [address], [place], [address], [facility] 4 12:42:27 Asthma 574443524 Active Debora Franklin CNM [address], [place], [address], [facility] 4 17:12:26 Heartbur n 80350419 Active Keny Barone MD [address], [place], [address], [facility] 4 13:21:22 Varicose veins in pregnanc y 0561078137 Active suprapub ic Keny Barone MD [address], [place], [address], [facility] 4 12:43:44 Female steriliz ation Active Consider ing Salpinge ctomy Keny Barone MD [address], [place], [address], [facility] 4 10:08:56 Problem Notes None recorded. Procedures Surgical History Date Name Laterality Status Provider Name and Address Organization Details Recorded Time 03/29/20 24 Colposcopy completed Keny Barone MD [address], [place], [address], [facility] 03/29/2024 15:30:04 03/29/20 24 Colposcopy completed Negra Ye [facility] 03/29/2024 14:44:39 03/29/20 24 Colposcopy completed Negra Ye [facility] 03/29/2024 14:45:35 03/04/20 24 IUD Removal completed Latoya Banks TD- [address], [place], [address], [facility] 03/04/2024 16:51:48 03/04/20 24 Date of Last Pap Smear completed Joyce Lugo [facility] 06/07/2024 10:58:36 07/04/20 22 IUD Insertion completed ROYCE Black [address], [place], [address], [place] [facility] 07/04/2022 16:28:00 06/10/20 18 section completed Joycejoby Lugo [facility] 06/07/2024 15:30:35 09/22/19 09 [facility] wisdom tooth [facility]24 15:31:20 09/22/19 04 Oral surgery procedure completed [facility] 06/07/2024 15:30:57 Imaging Results Imaging Date Name Status LastModified by Organiz ation Details LastModified Time 10/08/2024 US, obstetric, follow-up completed silviano [facility] [address], [place], [address], 10/08/2024 18:02:18 10/08/2024 US, obstetric, follow-up completed JOSE ALBERTO [address], [place], [address], 11/22/2024 21:56:47 11/15/2024 US, obstetric, follow-up completed [email or web address] [facility] [address], [place], [address], 11/15/2024 13:12:13 11/15/2024 US, obstetric, follow-up completed [email or web address] [address], [place], [address], 11/15/2024 22:55:12 Procedure Notes None recorded. Medical Equipment None Reported. Allergies Allergen ID Allergen Name Allergen Category Reaction Reaction Severity Criticality Documentation Date Start Date Code Code System Note Provider Name and Address Organization Details Recorded Time 2573 codeine medicatio n Not available Not available Not available 07/24/2020 2670 RxNorm Alissa Kalyani mathews [facility], [facility] 2 15:13:30 2574 amoxicill in medicatio n Not available Not available Not available 07/24/2020 723 RxNorm Joyce Lugo [facility], [facility] 4 15:31:41 892 metronida zole medicatio n Not available Not available Not available 02/25/2020 6922 RxNorm Melissa Vázquez [facility], [facility] 0 16:44:18 893 Product containin g penicilli n (product) medicatio n Not available Not available Not available 02/25/2020 27461 8001 SNOMED Melissa Vázquez [facility] 0 16:44:31 Medications Name Sig Start Date Stop Date Status Note LastModified by Organization Details LastModified Time cyclobenz aprine 10 mg tablet TAKE 1 TABLET BY MOUTH THREE TIMES A DAY NEEDED FOR MUSCLE SPASMS 03/04 completed Not Available Not Available Not Available Mirena 21 mcg/24 hr (up to 8 years) 52 mg intrauter ine device 02/28 completed Prescrib ed Elsewher e: Yes Loca tion: [facility] M odify By: amkshantel munizuntlázaro DateTime : 07/21/20 18 03:15:00 PM Not Available Not Available Not Available doxycycli ne hyclate 100 mg capsule 02/28 completed Not Available Not Available Not Available cefuroxim e axetil 250 mg tablet 02/24 completed Not Available Not Available Not Available clindamyc in HCl 300 mg capsule TAKE 1 CAPSULE BY MOUTH TWICE A DAY FOR 14 DAYS 02/28 completed Not Available Not Available Not Available azithromy dino 250 mg tablet TAKE 2 TABLETS BY MOUTH TODAY, THEN TAKE 1 TABLET DAILY FOR 4 DAYS 02/28 completed Not Available Not Available Not Available metronida zole 0.75 % (37.5 mg/5 gram) vaginal gel INSERT 1 APPLICAT ORFUL VAGINALL Y EVERY DAY AT BEDTIME FOR 7 DAYS 11/25 completed Not Available Not Available Not Available prednison e 20 mg tablet TAKE 2 TABLETS BY MOUTH EVERY DAY FOR 5 DAYS 03/04 completed Not Available Not Available Not Available spironola ctone 100 mg tablet TAKE 1 TABLET BY MOUTH EVERY DAY 10/16 completed stopped due to alexa loss Not Available Not Available Not Available clindamyc in HCl 150 mg capsule take 1 capsule by oral route every 6 hours for 7 days 02/24 completed Not Available Not Available Not Available hydrocort isone 2.5 % topical cream with perineal applicato r 02/24 completed Not Available Not Available Not Available ofloxacin 0.3 % ear drops INSTILL 10 DROPS INTO AFFECTED EAR(S) BY OTIC ROUTE ONCE DAILY 02/28 completed Not Available Not Available Not Available Flagyl 500 mg tablet take 1 tablet by oral route 2 times every day 05/05 completed Prescrib ed Elsewher e: No Locat ion: Noé willard [facility] odify By: bell Blanco r DateTime : 01/20/20 18 11:47:21 AM Not Available Not Available Not Available hydrocodo ne 7.5 mg-acetam inophen 325 mg tablet 02/24 completed Not Available Not Available Not Available oseltamiv ir 75 mg capsule 02/24 completed Not Available Not Available Not Available clindamyc in 2 % vaginal cream insert 1 applicat orful by vaginal route every day at bedtime for 7 nights 05/05 completed Prescrib ed Elsewher e: No Locat ion: Noé [facility] odify By: bell Blanco r DateTime : 03/10/20 18 03:00:00 PM Not Available Not Available Not Available norethind aleksandr acetate 1 mg-ethiny l estradiol 20 mcg tablet TAKE 1 TABLET BY MOUTH EVERY DAY 04/02 completed Not Available Not Available Not Available ibuprofen 600 mg tablet 04/02 completed Not Available Not Available Not Available methylpre dnisolone 4 mg tablets in a dose pack 04/02 completed Not Available Not Available Not Available albuterol sulfate HFA 90 mcg/actua tion aerosol inhaler INHALE 2 PUFFS EVERY 4 HOURS DIRECTED FOR 30 DAYS active Not Available Not Available No t Available fluticaso ne propionat e 50 mcg/actua tion nasal spray,maude pension SPRAY 1 SPRAY EVERY DAY BY INTRANAS AL ROUTE 03/04 completed Not Available Not Available Not Available dicyclomi ne 10 mg capsule TAKE 1 CAPSULE BY MOUTH TWICE A DAY NEEDED FOR 7 DAYS 03/04 completed Not Available Not Available Not Available loratadin e 10 mg tablet TAKE 1 TABLET BY MOUTH EVERY DAY 03/04 completed Not Available Not Available Not Available etonogest rel 0.12 mg-ethiny l estradiol 0.015 mg/24 hr vaginal ring Insert 1 vaginal ring every month by vaginal route. 07/24 completed Not Available Not Available Not Available cyclobenz aprine 5 mg tablet 02/28 completed Not Available Not Available Not Available 10/11 () 1 mg-20 mcg (21)/75 mg (7) tablet Take 1 tablet every day by oral route. 03/27 completed Not Available Not Available Not Available (28) 1.5 mg-30 mcg (21)/75 mg (7) tablet active Not Available Not Available Not Available famotidin e active Not Available Not Available Not Available active Not Available Not Avai lable Not Available BOMBSIGHT SPECIALIST-PNV-DH A 28 mg iron-1 mg-200 mg capsule take 1 capsule by oral route every day 07/08 completed Prescrib ed Elsewher e: No [facility] By: marii munizunter DateTime : 01/20/20 18 11:47:21 AM Not Available Not Available Not Available Allergy 04/02 completed Not Available Not Available Not Available 28 mg-800 mcg tablet 02/28 completed Prescrib ed Elsewher e: Yes Loca tion: Noé [facility] odify By: marii munizunter DateTime : 10/21/19 19 01:30:00 PM Not Available Not Available Not Available Slynd 4 mg (28) tablet TAKE 1 TABLET BY MOUTH EVERY DAY 07/04 completed Not Available Not Available Not Available Flucelvax Quad (PF) 60 mcg (15 mcg x 4)/0.5 mL IM syringe 04/02 completed Not Available Not Available Not Available Paxlovid 300 mg (150 mg x 2)-100 mg tablets in a dose pack TAKE 2 TABLETS NIRMATRE LVIR AND 1 TABLET OF RITONAVI R BY MOUTH TOGETHER TWICE A DAY FOR 5 DAYS 03/04 completed Not Available Not Available Not Available Vitals Date Recorded Body weight Systolic blood pressure Diastolic blood pressure Provider Name and Address Organization Details Last Updated DateTime 10/22/2024 01912.8494 9 g 106 mm[Hg] 71 mm[Hg] [facility] 10/22/2024 10:41:12 Date Recorded Body height Body mass index (BMI) Body weight Systolic blood pressure Diastolic blood pressure Provider Name and Address Organization Details Last Updated DateTime 11/01/2024 162.56 cm 30.2 kg/m2 40694.26 g 122 mm[Hg] 86 mm[Hg] Joyce Lugo [facility] 09:48:50 Date Recorded Body weight Systolic blood pressure Diastolic blood pressure Provider Name and Address Organization Details Last Updated DateTime 11/15/2024 77862.8113 4 g 131 mm[Hg] 89 mm[Hg] [facility] 11/15/2024 12:37:47 Date Recorded Body height Body mass index (BMI) Body weight Systolic blood pressure Diastolic blood pressure Provider Name and Address Organization Details Last Updated DateTime 11/25/2024 162.56 cm 31.6 kg/m2 25727 g 129 mm[Hg] 88 mm[Hg] [facility] 12:29:11 Social History Question Answer Notes LastModified by Organizat ion Details LastModified Time Tobacco Smoking Status Former Smoker Jeanne Spannamaria [facility] 08/05/2022 14:49:44 Do You Have An Advance Directive? No Information not available 04/02/2022 What Is Your Level Of Alcohol Consumption? None [email or web address] Information not available 06/07/2024 If You Are , What Was Your Level Of Alcohol Consumption Prior To ? Occasional [email or web address] Information not available 06/07/2024 How Many Years Have You Consumed Alcohol? 5 Information not available 04/02/2022 Are You Blind Or Do You Have Difficulty Seeing? No Information not available 04/02/2022 What Is Your Level Of Caffeine Consumption? Moderate [email or web address] Information not available 06/07/2024 How Much Tobacco Do You Chew? None Information not available 04/02/2022 In The 14 Days Before Symptom Onset, Have You Had Close Contact With A Laboratory-confir med COVID-19 While That Case Was Ill? No Information not available 04/02/2022 In The 14 Days Before Symptom Onset, Have You Had Close Contact With A Person Who Is Under Investigation For COVID-19 While That Person Was Ill? No Information not available 04/02/2022 Have You Been To An Area Known To Be High Risk For COVID-19? No Information not available 04/02/2022 Are You Deaf Or Do You Have Serious Difficulty Hearing? No Information not available 04/02/2022 What Type Of Diet Are You Following? REGULAR Information not available 04/02/2022 Do You Or Have You Ever Used E-cigarettes Or Vape? Current User Of Electronic Cigarettes Information not available 08/05/2022 What Is The Highest Grade Or Level Of School You Have Completed Or The Highest Degree You Have Received? [id number] Information not available 04/02/2022 Are There Any Guns Present In Your Home? No Information not available 04/02/2022 Do You Use Protection During Sex? No [email or web address] Information not available 06/07/2024 Do You Use Your Seat Belt Or Car Seat Routinely? Yes Information not available 04/02/2022 Do You Have Smoke And Carbon Monoxide Detectors In Your Home? Yes Information not available 04/02/2022 How Much Tobacco Do You Smoke? No Information not available 04/02/2022 Do You Feel Stressed (tense, Restless, Nervous, Or Anxious, Or Unable To Sleep At Night)? [id number] [email or web address] Information not available 06/07/2024 Do You Use Any Illicit Or Recreational Drugs? No Information not available 04/02/2022 Do You Use Sunscreen Routinely? Yes Information not available 04/02/2022 Have You Used IV Drugs? No Information not available 04/02/2022 Do You Or Have You Ever Used Any Other Forms Of Tobacco Or Nicotine? Yes [email or web address] Information not available 08/05/2022 Sex: Unknown Functional Status Question Answer Note LastModified by Organizat ion Details LastModified Time Do you have difficulty walking or climbing stairs? No [email or web address] Information not available 08/05/2022 Are you able to walk? [email or web address] Information not available 04/02/2022 Are you able to care for yourself? Yes [email or web address] Information not available 08/05/2022 Do you have difficulty dressing or bathing? No Information not available 08/05/2022 What is your exercise level? Moderate Information not available 04/02/2022 Mental Status None recorded. Family History Relationship Description Onset Age of this Age Resolved Age Notes LastModified by Organization Details LastModified Time Mother Anemia [email or web address] Not available 02/25/2020 16:46:15 Mother Cyst of ovary [email or web address] Not available 2024 11:16:19 Mother Blood coagulation disorder [email or web address] Not available 2019 10:22:03 Father Disorder of cardiovascul ar system [email or web address] Not available 2024 11:16:19 Father Diabetes mellitus [email or web address] Not available 2019 16:48:10 Father Hyperlipidem ia [email or web address] Not available 2024 11:16:19 Father Hypertensive disorder [email or web address] Not available 2019 16:49:32 Paternal Grandfather [email or web address] ia Not available 2024 11:16:19 Paternal Grandfather Disorder of cardiovascul ar system [email or web address] Not available 2024 11:16:19 Paternal Grandfather Diabetes mellitus [email or web address] Not available 2019 16:50:46 Paternal Grandfather Hypertensive disorder [email or web address] Not available 2019 16:51:43 Paternal Aunt Tuberculosis [email or web address] N ot available 11/25/2024 11:16:19 Paternal Grandmother Hypertensive disorder [email or web address] Not available 2019 10:22:51 Medical History Condition Response Allergies (Food, seasonal, environmental ) Y Other N Breast Cancer N Drug/Latex Allergies/Reactions Y Blood Transfusion N Lung Disease N Dermatologic Disorders N Defects or Inherited Disease N Breast Problem N Gestational Diabetes N Hematologic disorders N Anesthesia Complications N History of STI Y Deep Vein Thrombosis N Polycystic ovary syndrome N Anxiety Disorder N Autoimmune disease N Arthritis N Infertility N Polyps N Acid Reflux (GERD) N History of abnormal pap Y Cancer N Stroke N Varicosities N Neurologic/Epilepsy N Endometriosis N High Cholesterol N Headaches N Fibromyalgia N Kidney Disease N Heart Problems N Kidney or Bladder Problems N Thyroid Problems N GI Problems N Eating Disorder N Anemia N Art (IVF or FET) N Psychiatric Illness N Ovarian Cancer N Diabetes N Pulmonary (TB, Asthma) N Hepatitis/Liver Disease N No Past Medical History N Eczema N Urinary Tract Infection N Abuse/Domestic Violence N Asthma Y Trauma/Violence N Depression/ depression N Heart Disease N Pre-Eclampsia N Hypertension N Osteoporosis N Thrombophilias N Gynecological History Statement/Question Response Date of Last Mammogram Flow Moderate Date of LMP 03/04/2024 N Was last menstrual period normal N STIs/STDs Y Date of control 01/04/2019 Date of Last Colonoscopy Abnormal Pap Y On BCP's at Conception? N HPV Vaccine Y Colposcopy 03/29/2024 Duration of Flow (days) 6 Current Control Method Age at First Child 29 Frequency of Cycle (Q days) 0 Sexually Active? Y Menses Monthly Y Date of DEXA bone scan Age of first menstrual cycle 13 Date of Last Pap Smear 03/04/2024 Sexual Problems? N LMP Approximate N Obstetrics History GPAL:G 2 P 1 0 0 1 Type Value Full Term 1 Living 1 Total 2 Past Encounters Encounter ID Performer Location Encounter Start Date Encounter Closed Date Diagnosis/Indication Diagnosis SNOMED-CT Code Diagnosis ICD10 Code Diagnosis Note [id number] Keny Barone MD [facility] [address],[place] [address] 02/25/2020 14:13:16 03/03/2020 13:19:10 Gynecologic examination 18623547 Z01.419 This patient is here for her annual exam. A thorough history was taken. A physical exam was performed. Age appropriat e routine health screening was ordered, performed, and discussed. Recommende d testing was ordered. She was asked to follow up in one year. She will be informed of any test results. Patient wants NuvaRing for contracept ion. She was given instructio ns and precaution s.The medication was prescribed . And sent to the pharmacy. [id number] Keny Barone MD [facility] [address],[place] [address] 07/24/2020 11:55:51 07/24/2020 14:36:08 Hirsutism 856266193 L68.0 Contracept ion care management 905952836 Z30.9 this patient is a 30-year-ol d female presents for contracept dario management . Patient has had some negative experience s with NuvaRing. She had some changes in her mood. Patient has psychiatri c history. She had dramatic mood changes on NuvaRing. She stopped it after 6 weeks of a trial. We spent more than 15 minutes face-to-fa ce. More than 50% was counseling . We discussed her options. Talked about IUD. Patient had weight gain with IUD. She wants to try something different. We agreed to a low-dose continuous oral contracept dario will with no menses. patient reports hirsutism. We talked about evaluation and treatment. We agreed to check her androgens and to treat with spironolac tone. [id number] Keny Barone MD [facility] [address],[place] [address] 02/28/2021 14:56:15 02/28/2021 16:35:36 Gynecologic examination 71082518 Z01.419 This patient is here for her annual exam. A thorough history was taken. A physical exam was performed. Age appropriat e routine health screening was ordered, performed, and discussed. Recommende d testing was ordered. She was asked to follow up in one year. She will be informed of any test results. [id number] ROYCE Black [facility] [address],[place] [address] 04/02/2022 15:02:17 04/02/2022 16:24:15 Contraception care management 143152283 Z30.9 Gynecologi c examination 94089366 Z01.419 Take Calcium with Vitamin D 1200mg daily if not receiving in daily diet. It is strongly advised to have an annual flu shot and up can obtain at most pharmacies . If you have not had a TDap shot in the last 10 years you should obtain one as well. Discussed with patient & provided with informatio n regarding Gardisil vaccine to prevent the 4 strains for HPV that cause cervical cancer if under age 26. Encourage safe sexual practices, to use condoms and limit partners if not already in a monogamous relationsh ip. Do monthly self breast exams. Have mammogram yearly or every other year depending on family history. BRCA testing is now available for patients with strong genetic history of female cancer. If interested contact the office. Engage in daily exercise of low impact aerobic exercise 45-60 minutes 4-5 times weekly. Avoid tobacco and illicit drugs as well as using moderation with alcohol intake less than 1-2 8 oz beverages daily. This lifestyle behavior pattern will lead to less health conditions and longer life span. If BMI greater than 25 weight watchers or dietary consult advised. Patient received above instructio ns, and questions have been answered. If you have any questions please call or respond to this email. Patient was made aware of the patient portal and may obtain a paper copy of today's plan if desired. WWEOn combined OCP for control. Happy with this method.BP today 149/92 and then repeat was 140/90. We discussed need to switch to a progestin only method due to elevated BP.She denies hx of DVT/PE, stroke/[place], cancer, or liver diseaseDoe s not want IUD or nexplanon, not interested in Depo Discussed all control options in great detail. Pt would like to start POP. She is aware of the risks and benefits. She has contraindi cations to use of OCP or other estrogen containing hormonal therapy. Pt will start her pills on the first friday following the start of her period. She is aware it is not effective for control the first month. She is also aware of the importance of taking at the same time every day. Encouraged use of condoms as the pill does not protect against STD's. Will return in 3 months for med check. Consent was read and signed. Pt verbalized understand ing.- To start Slynd now, use condoms for first month of new BC packSlynd samples given x 3 monthsPati ent to f/u with PCP for BP checkNo hx of abnormal papsLast pap 02/28/2021, NILMNext pap due 02/29/2024 per ASCCP guidelines STI testing declinedRT C in 3 months for med check [id number] ROYCE Black [facility] [address],[facility] [address] 07/03/2022 13:47:44 07/03/2022 14:25:29 Contraception care management 771269445 Z30.9 Does not like SlyndWe discussed all BC options. She had Mirena IUD in the past and did wellDiscus sed R/B of IUD (infection , perforatio n, etc). Patient agrees to these riskNot SA x 1 year. She will have bhcg done today, RTC for insertion tomorrow.D jesse STI testing, has had (-) STI testing since last SA. Discussed risk of IUD insertion without current (-) STI testing. Time spent in visit is a total of 30 mins with at least 50% of visit consisting of counseling and review of plan of care. Hot sweats 454745633 R61 [id number] ROYCE Black [facility] [address],[place] [address] 07/04/2022 15:54:14 07/04/2022 16:30:49 Insertion of intrauterine contraceptive device 83760625 Z30.430 She has been counseled on all of the r/b/a of placement of an intrauteri ne device that include but are not limited to uterine perforatio n, injury to cervix, vagina, bladder, and bowel.Risk s of bleeding due to injury or increased irregular bleeding due to progestin effect of the device. Risks of infection would be increased within the first 21 days of placement with concommita nt cervicitis . She understand s that the device will need to be removed in this instance due to increased risk of Pelvic inflammato ry disease. Patient is aware she is at higher risk for STD and if contracted she could lose her fertility. Pt is aware that if occurs that she should contact office immediatel y to rule out ectopic which could be life threatenin g. IUD will also need to be removed and this could cause miscarriag e. Patient also informed that in the event her strings are absent or embedded at the time of removal she may need to have the IUD surgically removed. She was informed of the above and properly consented. IUD placed w/o complicati on. Patient should return to office after next period to check for string placement. Patient to expect irregular bleeding but should be seen in the ED if bleeding increases to soaking a pad an hour for at least 2 hours. She verbalized understand ing.RTC in 1 month for IUD checkPatie nt declined STI testing Contracept ion care management 314818152 Z30.9 [id number] Essence Wylie [facility] [address],[facility] [address] 08/05/2022 14:49:36 08/05/2022 15:22:51 IUD check 228496415 Z30.431 (+) IUD strings seen on examHappy with Mirena IUDRTC in 1 year or sooner if needed Time spent in visit is a total of 15 mins with at least 50% of visit consisting of counseling and review of plan of care. Contracept ion care management 337548167 Z30.9 [id number] [facility] [address],[facility] [address] 03/04/2024 16:21:31 03/04/2024 16:59:56 Gynecologic examination 28965577 Z01.419 Take Calcium with Vitamin D 1200mg daily if not receiving in daily diet. It is strongly advised to have an annual flu shot and up can obtain at most pharmacies . If you have not had a TDap shot in the last 10 years you should obtain one as well. Discussed with patient & provided with informatio n regarding Gardisil vaccine to prevent the 4 strains for HPV that cause cervical cancer if under age 26. Encourage safe sexual practices, to use condoms and limit partners if not already in a monogamous relationsh ip. Do monthly self breast exams. Have mammogram yearly or every other year depending on family history. BRCA testing is now available for patients with strong genetic history of female cancer. If interested contact the office. Engage in daily exercise of low impact aerobic exercise 45-60 minutes 4-5 times weekly. Avoid tobacco and illicit drugs as well as using moderation with alcohol intake less than 1-2 8 oz beverages daily. This lifestyle behavior pattern will lead to less health conditions and longer life span. If BMI greater than 25 weight watchers or dietary consult advised. Patient received above instructio ns, and questions have been answered. If you have any questions please call or respond to this email. Patient was made aware of the patient portal and may obtain a paper copy of today's plan if desired. Pap/hpv sent STD Screen sent Genetic Screen discussed Colon Screen na Dexa Screen na Routine Labs PCP Removal of intrauterine contraceptive device [id number] Z30.432 It was explained that she may have bleeding or spotting after the removal of the device today as well. If cannot see the strings of this device we will need to get an US image to make that the device is still in place and not in an unobtainab le position. She expressed understand ing of all the above instructio ns. [id number] Keny Barone MD [facility] [address],[place] [address] 03/29/2024 14:13:24 03/29/2024 15:59:42 Screening procedure 13987038 Z13.9 Abnormal c ervical Papanicolaou smear 631408483 R87.619 colposcopy was performed. She tolerated well. It was normal. It was unsatisfac tory, no ECC performed due to . [id number] Keri Ricardo [facility] [address],[place] [address] 04/28/2024 14:41:45 04/28/2024 16:00:41 [id number] Keny Barone MD [facility] [address],[facility] [address] 04/28/2024 14:42:05 04/28/2024 16:36:44 Amenorrhea 06594868 N91.2 this patient is a 34-year-ol d female who presents for amenorrhea . She is a positive test. Ultrasound revealed a 1st trimester gestation. Patient has no complaints . We talked about early care. Talked about genetic screening. We talked about her ultrasound results. We talked about the 12 week ultrasound that has genetic screening components . She was given recommenda tions on exercise, diet, over-the-c ounter medication s. We reviewed her obstetric history. We reviewed her medical history. We reviewed her social history. She will begin routine care at her next visit. [id number] [facility] [address],[place] [address] 06/04/2024 13:54:18 06/04/2024 14:45:28 screening 126953044 Z36.82 Z3A.13 [id number] Debora Franklin [facility] [address],[place] [address] 06/07/2024 10:55:41 06/08/2024 09:30:37 Gestation period, 13 weeks 45121813 Z3A.13 Routine an tenatal care 556354930 Z3A.13 [id number] Keny Barone MD [facility] [address],[place] [address] 06/30/2024 12:14:52 06/30/2024 13:39:17 Routine care 313871072 Z34.80 [id number] [facility] [address],[place] [address] 07/19/2024 10:16:52 07/19/2024 11:43:45 screening for malformation 896198095 Z36.3 Z3A.19 [id number] Keny Barone MD [facility] [address],[place] [address] 07/19/2024 10:17:20 07/19/2024 12:51:20 Routine care 045082030 Z34.80 [id number] Keny Barone MD [facility] [address],[place] [address] 08/12/2024 09:38:23 08/12/2024 10:17:19 Routine care 195644115 Z34.80 [id number] Keny Barone MD [facility] [address],[place] [address] 09/09/2024 09:35:09 09/09/2024 10:31:50 Routine care 715259312 Z34.80 [id number] Keny Barone MD [facility] [address],[place] [address] 09/24/2024 12:28:40 09/24/2024 13:36:26 Routine care 167849063 Z34.80 [id number] [facility] [address],[place] [address] 10/08/2024 11:48:06 10/08/2024 12:32:26 Uterine size for dates discrepancy 495786033 O26.843 Z03.74 Z3A.31 [id number] Keny Barone MD [facility] [address],[place] [address] 10/08/2024 11:48:20 10/08/2024 13:01:05 Routine care 907730287 Z34.80 [id number] Keny Barone MD [facility] [address],[place] [address] 10/22/2024 10:19:45 10/22/2024 11:21:55 section following previous section 038367697 O34.219 [id number] Keny Barone MD [facility] [address],[place] [address] 11/01/2024 09:39:59 11/01/2024 10:06:01 Routine care 756827340 Z34.80 [id number] Preciousmeghann Montoya [facility] [address],[place] [address] 11/15/2024 11:19:56 11/15/2024 12:06:08 Uterine size for dates discrepancy 468375733 O26.843 Z3A.36 [id number] Keny Barone MD [facility] [address],[place] [address] 11/15/2024 11:20:34 11/15/2024 13:14:24 Routine care 550737525 Z34.80 [id number] Keny Barone MD [facility] [address] [address] 11/25/2024 11:16:16 11/25/2024 12:38:35 Routine care 238020541 Z34.80 Health Concerns Section Related Observation LastModified by Organization Detai ls LastModified Time None Recorded Concern Status LastModified by Organization Details LastModified Time None Recorded Advance Directives Directive N: Payers Encounter Date Sequence Insurance Name Policy Number Policy Christianson Covered Member ID Christianson Member ID Guarantor Name 10/22/2024 1 [facility] ON OR AFTER 03/22/21 (MEDICAID REPLACEMENT - HMO) Leoncio Lazaro [id number] Leoncio Lazaro 11/01/2024 1 [facility] ON OR AFTER 03/22/21 (MEDICAID REPLACEMENT - HMO) Leoncio Lazaro [id number] Leoncio Lazaro 11/15/2024 1 [facility] ON OR AFTER 03/22/21 (MEDICAID REPLACEMENT - HMO) Leoncio Lazaro [id number] Leoncio Lazaro 11/15/2024 1 [facility] ON OR AFTER 03/22/21 (MEDICAID REPLACEMENT - HMO) Leoncio Lazaro [id number] Leoncio Lazaro 11/25/2024 1 [facility] ON OR AFTER 03/22/21 (MEDICAID REPLACEMENT - HMO) Leoncoi Lazaro [id number] Leoncio Lazaro OBGyn Episode Ob Episode Information Episode Created Date Number of Fetuses Patient Bloodtype Patient rh Status Prepregnancy Weight lbs Domestic Partner Domestic Partner Phone Father Name [employer] Associate Status 02/25/20 20 1 CLOSED Fetus Data First Name Last Name Admitted to NICU Weight (g) Sex Living Outcome Pediatric Complications Fetus ID Race Codes Race Delivery Type 3515.33 8 F Full Term 2048 Primary Ryder Calculation Initial Ryder Date Initial Exam [...] Complications Tubal Sterilization Discharge Date Comments 8 39 non reassurin g FHR Discharge Information Feeding Method Contraceptive Method Maternal HG B and HCT Levels Ob Episode Information Episode Created Date Number of Fetuses Patient Bloodtype Patient rh Status Prepregnancy Weight lbs Domestic Partner Domestic Partner Phone Father Name Corporate Communications Associate Status 06/07/20 24 1 B Positive 142 Calin Mcnair OPEN Fetus Data First Name Last Name Admitted to NICU Weight (g) Sex Living Outcome Pediatric Complications Fetus ID Race Codes Race Delivery Type [id number] Problems Problem Notes Problem Name Start Date End Date Resolution Snomed Code Not e Female sterilization [id number] Considering Salpingectomy Varicose veins in 8928345871 suprapubic Heartburn 89350208 Asthma 681240015 Past history of section 111808723 NRFHR, failure to progress, TO REPEAT Ryder Calculation Initial Ryder Date Initial Exam Date Initial Exam Provider Initial Ultrasound Date Last Menstrual Period Date Ultra Sound Weeks Gestation 12/09/2024 04/28/2024 Debora Rigoberto 04/28/2024 03/04/2024 7 Eighteen To Twenty Week Ryder Update Ultra Sound Date Fundal Height At Umbil Quickening Date Ultra Sound Latest Weeks Gestation Final Ryder Confirmed By Final Ryder Confirmed Date Final Ryder Date Ultra Sound Latest Days Gestation 0 0 Pre- Flowsheet Flowsheet Date 06/07/2024 Palacio Score Blood Edema Fundus Height Fundus Units Glucose Ketones Leukocytes Nitrite Labor Signs Protein Cervic Dilation Cervic Effacement Cervic Station none none trace Type Weight in lbs Pre/Post Dialysis Refused Weight 143.071348068163 BP Diastolic BP Location Tested BP Systolic BP Type 87 131 Fetus Heart Rate Present Fetus Movement A Yes Comments Patient states that is havin g some nausea, vomiting, declines medication, reviewed US and plan anatomy at 20 weeks, planning rpt , begin routine care. see dr barone in 3 weeks Flowsheet Date 06/30/2024 Palacio Score Blood Edema Fundus Height Fundus Units Glucose Ketones Leukocytes Nitrite Labor Signs Protein Cervic Dilation Cervic Effacement Cervic Station 156 cm none trace Type Weight in lbs Pre/Post Dialysis Refused 147.392214158554 BP Diastolic BP Location Tested BP Systolic BP Type 80 L arm 118 sitting Fetus Heart Rate Present Fetus Movement A Yes Comments Patient states having light headedness, cramping, and heart burn. gave recommendations on her symptoms. Flowsheet Date 07/19/2024 Palacio Score Blood Edema Fundus Height Fundus Units Glucose Ketones Leukocytes Nitrite Labor Signs Protein Cervic Dilation Cervic Effacement Cervic Station Type Weight in lbs Pre/Post Dialysis Refused BP Diastolic BP Location Tested BP Systolic BP Type Fetus Heart Rate Present Fetus Movement Comments Flowsheet Date 07/19/2024 Palacio Score Blood Edema Fundus Height Fundus Units Glucose Ketones Leukocytes Nitrite Labor Signs Protein Cervic Dilation Cervic Effacement Cervic Station Type Weight in lbs Pre/Post Dialysis Refused 150.013022424225 BP Diastolic BP Location Tested BP Systolic BP Type 79 L arm 111 sitting Fetus Heart Rate Present A 143 Fetus Movement A Yes Comments no complaints, no problems, routine care, no contractions, no vaginal bleeding, no loss of fluid, no cramping\ reports suprapubic varicosity. Talked about compression stockings that go over the . Flowsheet Date 08/12/2024 Palacio Score Blood Edema Fundus Height Fundus Units Glucose Ketones Leukocytes Nitrite Labor Signs Protein Cervic Dilation Cervic Effacement Cervic Station Type Weight in lbs Pre/Post Dialysis Refused 159.500799370332 BP Diastolic BP Location Tested BP Systolic BP Type 84 L arm 134 sitting Fetus Heart Rate Present A 145 Fetus Movement A Yes Comments no complaints, no problems, routine care, no contractions, no vaginal bleeding, no loss of fluid, no cramping Flowsheet Date 09/09/2024 Palacio Score Blood Edema Fundus Height Fundus Units Glucose Ketones Leukocytes Nitrite Labor Signs Protein Cervic Dilation Cervic Effacement Cervic Station 30 cm Type Weight in lbs Pre/Post Dialysis Refused 168.106244742110 BP Diastolic BP Location Tested BP Systolic BP Type 80 L arm 121 sitting Fetus Heart Rate Present A 145 Fetus Movement A Yes Comments no complaints, no problems, routine care, no contractions, no vaginal bleeding, no loss of fluid, no cramping Flowsheet Date 09/24/2024 Palacio Score Blood Edema Fundus Height Fundus Units Glucose Ketones Leukocytes Nitrite Labor Signs Protein Cervic Dilation Cervic Effacement Cervic Station 27 cm Type Weight in lbs Pre/Post Dialysis Refused 170.706268928870 BP Diastolic BP Location Tested BP Systolic BP Type 83 L arm 127 sitting Fetus Heart Rate Present A 145 Fetus Movement A Yes Comments no complaints, no problems, routine care, no contractions, no vaginal bleeding, no loss of fluid, no cramping Size smaller than dates-growth ultrasound Flowsheet Date 10/08/2024 Palacio Score Blood Edema Fundus Height Fundus Units Glucose Ketones Leukocytes Nitrite Labor Signs Protein Cervic Dilation Cervic Effacement Cervic Station Type Weight in lbs Pre/Post Dialysis Refused BP Diastolic BP Location Tested BP Systolic BP Type Fetus Heart Rate Present Fetus Movement Comments Flowsheet Date 10/08/2024 Palacio Score Blood Edema Fundus Height Fundus Units Glucose Ketones Leukocytes Nitrite Labor Signs Protein Cervic Dilation Cervic Effacement Cervic Station Type Weight in lbs Pre/Post Dialysis Refused Weight 173.220112079054 BP Diastolic BP Location Tested BP Systolic BP Type 79 L arm 114 sitting Fetus Heart Rate Present A 145 Fetus Movement A Yes Comments no complaints, no problems, routine care, no contractions, no vaginal bleeding, no loss of fluid, no cramping Flowsheet Date 10/22/2024 Palacio Score Blood Edema Fundus Height Fundus Units Glucose Ketones Leukocytes Nitrite Labor Signs Protein Cervic Dilation Cervic Effacement Cervic Station 32 cm Type Weight in lbs Pre/Post Dialysis Refused 177.322475407702 BP Diastolic BP Location Tested BP Systolic BP Type 71 L arm 106 sitting Fetus Heart Rate Present A 145 Fetus Movement A Yes Comments no complaints, no problems, routine care, no contractions, no vaginal bleeding, no loss of fluid, no cramping Flowsheet Date 11/01/2024 Palacio Score Blood Edema Fundus Height Fundus Units Glucose Ketones Leukocytes Nitrite Labor Signs Protein Cervic Dilation Cervic Effacement Cervic Station neg trace Type Weight in lbs Pre/Post Dialysis Refused Weight 176.818887129278 BP Diastolic BP Location Tested BP Systolic BP Type 86 122 Fetus Heart Rate Present A 145 Fetus Movement A Yes Comments Patient states that her anxi ety is worse, hip pain, swelling, nausea and loss of appitate. S<D to get growth US Flowsheet Date 11/15/2024 Palacio Score Blood Edema Fundus Height Fundus Units Glucose Ketones Leukocytes Nitrite Labor Signs Protein Cervic Dilation Cervic Effacement Cervic Station Type Weight in lbs Pre/Post Dialysis Refused BP Diastolic BP Location Tested BP Systolic BP Type Fetus Heart Rate Present Fetus Movement Comments Flowsheet Date 11/15/2024 Palacio Score Blood Edema Fundus Height Fundus Units Glucose Ketones Leukocytes Nitrite Labor Signs Protein Cervic Dilation Cervic Effacement Cervic Station Type Weight in lbs Pre/Post Dialysis Refused 182.940371696067 BP Diastolic BP Location Tested BP Systolic BP Type 89 L arm 131 sitting Fetus Heart Rate Present A 134 Fetus Movement A Yes Comments reports pelvic pressure, cer vix is normal /very posterior, head is ballotable Flowsheet Date 11/25/2024 Palacio Score Blood Edema Fundus Height Fundus Units Glucose Ketones Leukocytes Nitrite Labor Signs Protein Cervic Dilation Cervic Effacement Cervic Station Type Weight in lbs Pre/Post Dialysis Refused Weight 184.203378590268 BP Diastolic BP Location Tested BP Systolic BP Type 88 L arm 129 sitting Fetus Heart Rate Present A 154 Present Fetus Movement A Yes Comments no complaints, no problems, routine care, no contractions, no vaginal bleeding, no loss of fluid, no cramping Menstrual History Last Menstrual Date Menses Monthly On Bcp Conception Prior Menses Frequency Hcg Plus Date Menarche Onset Age 0603/04/2023 Delivery Information Delivery Date Delivery Type Labor Anesthesia Weeks Gestation Incision Type Labor Labor Length Hrs Delivered By Post Complications Tubal Sterilization Discharge Date Comments Discharge Information Feeding Method Contraceptive Method Maternal HG B and HCT Levels
--- OUTSIDE RECORDS SUMMARY | 2024-12-01 08:51 | XMS_ITS | CONTINUITY OF CARE DOCUMENT ---
Author Name nasima nasima Address Unknown Organization [facility] Address [address] [place] [address] [address] [place] [address] Phone [phone] Care Team Providers Care Technical Rep Name Role Phone Leo MARINELLI, Carla Unavailable [phone] AILYN EVANS MD Unavailable Unav ailable AILYN EVANS MD Unavailable Unav ailable INSURANCE PROVIDERS Payer name Policy type / Coverage type [place] red green party ID [id number] PAY [id number]
[2024-12-01 09:19] LABS: Hematocrit 36.2 % (37.0-47.0); Hemoglobin 12.1 g/dL (12.0-15.0); Mean Corpuscular HGB Conc 33.4 g/dl (32-36); Mean Corpuscular Hemoglobin 30.8 pg (26-34); Mean Corpuscular Volume 92.1 fl (80-100); Mean Platelet Volume 11.5 fl (7.4-10.4); Platelet Count Result 212 k/mm3 (150-375); Red Blood Count 3.93 M/mm3 (4.2-5.4); Red Cell Distribution Width 12.2 % (11.5-14.5); White Blood Count 10.9 K/mm3 (4.5-10.0)
[2024-12-01 10:02] LABS: Syphilis IgG/IgM Antibody Negative (Negative)
[2024-12-01 10:15] LABS: HIV 1/2 Ab P24 Ag Result Negative (Negative)
== END 2024-12-01 08:30 | disposition home or self-care (01) ==
LOC: ANHLAB 08:31
PROVIDERS: PCP Family Medicine; Visit Provider Obstetrics & Gynecology
DX: Z01.812 Encounter for preprocedural laboratory examination (principal)
CPT/HCPCS: 36415; 85027; 86593; 86703; 86850; 86900; 86901; G0432

== ENCOUNTER 2024-12-02 05:19 | Inpatient (IN) | payer OTHER, SELFPAY ==
[2024-12-02] VITALS (67 sets, daily range): BP systolic 99–143; BP diastolic 27–103; PULSE 50–231; RESP 15–20; TEMP 36.1–37.1; O2SAT 94–100; BMI 31.8
--- OUTSIDE RECORDS SUMMARY | 2024-12-02 00:10 | XMS_ITS | CONTINUITY OF CARE DOCUMENT ---
Author Name nasima nasima Address Unknown Organization [facility] Address [address] [place] [address] [address] [place] [address] Phone [phone] Care Team Providers Care Mold Dresser Name Role Phone Leo MARINELLI, Carla Unavailable AILYN EVANS MD Unavailable Unav ailable AILYN EVANS MD Unavailable Unav ailable INSURANCE PROVIDERS Payer name Policy type / Coverage type [place] red republican ID [id number] PAY [id number]
[2024-12-02] MEDS: ACETAMINOPHEN 500 MG TABLET 1000 MG PO (05:53)
[2024-12-02] MEDS: LACTATED RINGERS 1,000 ML 125 ML IV CONT ×3 (05:55→10:13)
--- NOTE | 2024-12-02 06:15 | LDADM ---
This patient, Leoncio Lazaro, was admitted to Labor/Delivery/Recovery 120 on 12/02/24 at 05:19. Plans for labor, pain management and were discussed with patient. Patient/family oriented to hospital policies and general routines including ID bracelet, bed and alarms, visiting hours, pain management, procedures, bathroom and other care routines, personal items, smoking policy, room service/diet and guest tray routines, security routines, and visiting hours. Patient/Family are encouraged to report perceived risks to care and to ask questions if they do not understand what they are told or what they should do. See OBIX for further documentation.
--- NOTE | 2024-12-02 08:07 | P.HP_ITS ---
H&P: HPI History of Present Illness Date/Time: 12/02/24 08:07 Chief Complaint: Term Narrative: This patient is a 34-year-old female with a term gestation and previous delivery. She is multiparous female. We have agreed to perform repeat delivery. The patient understands the details of the procedure. The procedure has been explained in detail. She understands the risks. She understands that injuries may occur that result in hospitalization, more surgery, and severe illness. She understands risk of hemorrhage and infection. She denies any chest pain or shortness of breath. She denies any nausea, vomiting, fever, chills. Review of Systems Review of Systems: All systems reviewed & are unremarkable except as noted in HPI and below Constitutional: Constitutional: Denies chills, Denies fatigue, Denies fever(s) and Denies weakness Eyes: Eyes: Denies blurry vision, Denies change in vision, Denies loss of peripheral vision, Denies loss of vision, Denies other visual disturbances and Denies eye pain ENT: Denies vertigo, Denies dizziness, Denies hearing loss, Denies mouth pain, Denies nasal obstruction, Denies neck mass and Denies neck pain Cardiovascular: Cardiovascular: Denies chest pain, Denies diaphoresis, Denies syncope, Denies leg edema and Denies dyspnea Respiratory: Respiratory: Denies chest congestion, Denies cough, Denies hemoptysis, Denies dyspnea and Denies wheezing Gastrointestinal: Gastrointestinal: Denies abdominal pain, Denies constipation, Denies diarrhea, Denies nausea and Denies vomiting Genitourinary: Genitourinary: Denies hematuria, Denies change in libido, Denies nocturia, Denies genital lesions, Denies flank pain and Denies urinary urgency Musculoskeletal: Musculoskeletal: Denies abnormal gait, Denies back pain, Denies myalgias, Denies arthralgias, Denies joint swelling, Denies muscle weakness and Denies neck pain Integumentary/Breasts: Skin/Breast: Denies swelling, Denies breast pain, Denies breast mass, Denies dry skin, Denies nipple discharge, Denies unusual bruising and Denies jaundice Neurologic: Denies Neuro-related abnormal movements, Denies Abnormal speech present, Denies abnormal gait, Denies behavioral changes, Denies confusion, Denies vertigo, Denies dizziness, Denies syncope, Denies loss of vision, Denies memory loss, Denies convulsions and Denies weakness Psychiatric: Psychiatric: Denies abnormal sleep pattern, Denies behavioral changes, Denies change in libido, Denies confusion, Denies depression, Denies anhedonia and Denies memory loss Endocrine: Endocrine: Reports no additional endocrine complaints, Denies change in libido and Denies fatigue Hematologic/Lymphatic: Hematologic/Lymphatic: Reports no additional hematologic/lymphatic complaints Allergic/Immunologic: Allergic/Immunologic: Reports no additional allerg ic/immunologic complaints and Denies wheezing PMFSH Past Medical History Medical History (Updated 12/02/24 @ 08:08 by Keny Smith MD) Patient denies medical problems Social History Social History (Updated 07/23/20 @ 13:41 by Skylar Mosher MD) Smoking status: Current every day smoker Tobacco type: e-cigarettes/vaping Second hand tobacco smoke exposure: Yes Additional smoking assessment comments: pt. states shes vapes once a day Substance use: never Substance use type: marijuana Do You Feel Safe in your Home?: Yes Lack of Transportation: No Lack of Food: Never True Current Housing: I Have Housing Concerned About Future Housing: No Difficulty Paying Gas/Electric Bills: No Difficulty Paying for Meds: No Currently Unemployed: No Education: High School Diploma/GED Difficulty w/ Childcare or Family Care: No Gender identity (if verbalized by the patient): Female Spiritual care concerns: No Meds Home Medications and Allergies Home Medications ?Medication ?Instructions ?Recorded ?Confirmed ?Type albuterol sulfate 90 mcg/actuation inhalation 11/11/24 History aerosol inhaler famotidine 10 mg tablet (Acid 10 mg PO DAILY 11/11/24 12/02/24 History Controller) vitamin#30 30 mg iron-10 cap PO 11/11/24 History mg iron-folic acid 1 mg-omg3 capsule Allergies Allergy/AdvReac Type Severity Reaction Status Date / Time amoxicillin Allergy Intermediate SWELLING Verified 12/02/24 05:58 metronidazole Allergy Intermediate SWELLING Verified 12/02/24 05:58 bee pollen Allergy Mild Swelling Verified 12/02/24 05:58 Penicillins Allergy Mild SWELLING Verified 12/02/24 05:58 codeine Allergy Itching Verified 12/02/24 05:58 Vital Signs Vital Signs - 24 hr 12/02/24 05:46 12/02/24 05:53 12/02/24 06:01 Temperature 97.9 F Pulse Rate 50 L 64 Blood Pressure 126/76 133/89 Oxygen Delivery 12/02/24 06:14 12/02/24 06:16 12/02/24 06:31 Temperature Pulse Rate 62 58 L Blood Pressure 139/90 140/95 H Oxygen Delivery Room Air Exam Const: General: cooperative, healthy appearing, comfortable and no acute distress Orientation/consciousness: oriented to person, oriented to place and oriented to time HENMT: Head: normal to inspection Ears: external ears normal Face/Nose/Sinus: Normal external nose present and normal facial exam Face and sinus: normal facial exam Eyes: General: appearance normal, both eyes and all related structures Neck: Neck: normal visual inspection, trachea midline and supple Resp: Auscultation: clear to auscultation bilaterally, no crackles, no rales, no rhonchi and no wheezes Cardio: Rate: regular rate Rhythm: regular rhythm Heart sounds: no click, no murmurs and no rubs GI: GI Palp: No abdominal tenderness, No Soft to palpation, No Tenderness to palpation present (GI) and No Palpable mass present Auscultation: normal bowel sounds Skin: General skin exam: normal color and no rashes or lesions noted Neuro: General: oriented to person, oriented to place and oriented to time Extrem: General: normal to inspection, no joint enlargement, no clubbing, cyanosis or edema, no pedal edema and no calf tenderness Psych: Appearance: grossly normal Mental Status: mental status grossly normal Speech and movement: Normal speech and movement present Assessment and Plan Assessment and plan (1) Term : Code(s): Z34.90 - Encounter for supervision of normal , unspecified, unspecified trimester Status: Acute (2) Previous delivery, delivered: Code(s): O34.219 - Maternal care for unspecified type scar from previous delivery Status: Acute Plan This patient is a 34-year-old female with previous delivery. She is term . We have agreed for repeat delivery. She understands risks, benefits, and alternatives. She has completed informed consent process is ready to proceed.
[2024-12-02 08:22] LABS: OBXCEM ROM Plus Negative (Negative)
[2024-12-02] MEDS: ONDANSETRON INJ 4 MG/2 ML VIAL IV PUSH ×2 (10:12→20:18)
[2024-12-02] MEDS: FAMOTIDINE 20 MG/2 ML VIAL IV PUSH (10:12)
[2024-12-02] MEDS: ceFAZolin 2 GM/D5W 50 ML 2 GM/50 ML BAG IVPB (10:40)
--- NOTE | 2024-12-02 12:01 | WPDANESEPPF ---
Anes - Initial Pre Proc Eval Procedure: Operation Date: 12/02/24 10:30 Proposed Procedures p Repeat Section - Keny Smith MD Date/Time: 12/02/24 12:01 Surgeon: Keny Smith MD Pre Op Diagnosis: C/S Patient Data Age: 34 Gender: F Height: 1.63 m Weight: 84 kg Last Vital Signs Temp 36.6 C 12/02/24 05:53 Pulse 61 12/02/24 10:21 BP 115/49 L 12/02/24 10:21 O2 Del Method Room Air 12/02/24 06:14 Allergies Allergy/AdvReac Type Severity Reaction Status Date / Time amoxicillin Allergy Intermediate SWELLING Verified 12/02/24 05:58 metronidazole Allergy Intermediate SWELLING Verified 12/02/24 05:58 bee pollen Allergy Mild Swelling Verified 12/02/24 05:58 Penicillins Allergy Mild SWELLING Verified 12/02/24 05:58 codeine Allergy Itching Verified 12/02/24 05:58 Home Medications ?Medication ?Instructions ?Recorded ?Confirmed ?Type albuterol sulfate 90 mcg/actuation inhalation 11/11/24 History aerosol inhaler famotidine 10 mg tablet (Acid 10 mg PO DAILY 11/11/24 12/02/24 History Controller) vitamin#30 30 mg iron-10 cap PO 11/11/24 History mg iron-folic acid 1 mg-omg3 capsule Laboratory Tests 12/02/24 08:06 Membranes Rupture Rom plus negative (Negative) Patient hx anesthesia problems: none Family hx anesthesia problems: none Results Review: All pre-operative results and documents have been reviewed as part of the pre-operative evaluation. [facility] Past Medical History Medical History Patient denies medical problems Social History Social History Smoking status: Current every day smoker Tobacco type: e-cigarettes/vaping Second hand tobacco smoke exposure: Yes Additional smoking assessment comments: pt. states shes vapes once a day Substance use: never Substance use type: marijuana Do You Feel Safe in your Home?: Yes Lack of Transportation: No Lack of Food: Never True Current Housing: I Have Housing Concerned About Future Housing: No Difficulty Paying Gas/Electric Bills: No Difficulty Paying for Meds: No Currently Unemployed: No Education: High School Diploma/GED Difficulty w/ Childcare or Family Care: No Gender identity (if verbalized by the patient): Female Spiritual care concerns: No Anes - Eval Final PreProcedure Day of Procedure 12/02/24 12:01 Patient weight: overweight Heart: regular rate and rhythm Lungs: clear to auscultation Airway: Mallampati scale class II Neurological: alert and oriented Last oral intake: >/= 8 hours ASA classification: II Emergent: no Anesthetic plan: proceed Anesthesia type and monitoring: regional spinal and standard monitoring Results Review: All pre-operative results and documents have been reviewed as part of the pre-operative evaluation. Informed Consent: The patient's anesthetic plan and its attendant risks and benefits were discussed with the patient/family/POA. Questions were solicited and answers provided to the satisfaction of the patient/family/POA.
--- NOTE | 2024-12-02 12:09 | P.PCNOB_ITS ---
OB - Delivery Note Procedure Delivery date: 12/02/24 Pre-op diagnosis: Previous Delivery Post-op Diagnosis: Same Procedure Performed: Repeat Surgeon: Keny Smith MD Anesthesia type: Spinal Description of Procedure/Findings: Findings-term in the vertex position, normal pelvic anatomy, excess watery egress from the tissue, weeping. The patient was taken the operating room.? She was prepped and draped in dorsal supine position with a leftward tilt.? This was done after spinal anesthetic was applied.? A low-transverse skin incision was made and carried down till of the fascia with the knife.? The fascial incision was made with the knife.? The fascial incision was extended laterally with Mcgowan scissors.? The fascia was tented upward superiorly and inferiorly the rectus muscles were dissected off bluntly.? The rectus muscles were the midline.? The preperitoneal fat and peritoneum were dissected open bluntly at the superior aspect of the rectus muscles.? The peritoneal incision was extended superior and inferior with good position of bladder.? The uterine incision was made with a scalpel down to the level of the amniotic cavity.? The amniotic cavity was entered bluntly.? The infant was delivered.? The cord was clamped and cut and the was handed off to waiting pediatric staff.? Cord bloods were obtained.? The placenta was removed manually.? The uterus was exteriorized.? The uterus was cleared of all clots, debris and membranes.? The uterus was closed in 0 Vicryl running lock fashion.? An imbricating over a was placed along the incision line as well.? The uterus was returned to the abdomen.? The gutters were cleared of all clots and debris.? The fascia was closed with 0 Vicryl running fashion.? The subcutaneous tissue was irrigated pinpoint bleeders were cauterized.? The skin was closed with subcuticular absorbable rae.? The skin incision line was covered with glue.? The patient tolerated the procedure well.? She has taken recovery room in stable condition.? Sponge lap and needle counts were correct x2.? Excess watery fluid was seen throughout the pelvis and subcutaneous fat. The head after closing the fascia there was concern about urine leaking. The bladder was then filled with saline. No defect was observed in the bladder., ti ssue throughout the pelvis appeared to be weeping upon very thorough examination of the pelvis and bladder. Bladder again was allowed to drain.
[2024-12-02] MEDS: ACETAMINOPHEN 325 MG TABLET 650 MG PO ×2 (12:45→21:23)
[2024-12-02] MEDS: KETOROLAC 15 MG/ML VIAL (*BKC) IV PUSH ×2 (12:47→21:24)
[2024-12-02] MEDS: OXYTOCIN 30 UNITS/NS 500 ML 30 UNITS/500 ML BAG 125 UNITS IV CONT (12:50)
[2024-12-02] MEDS: LIDOCAINE 5% PATCH 1 PATCH TRANSDERM (12:53)
--- NOTE | 2024-12-02 14:22 | OBPPTRN ---
Patient transferred to post room # 280 via stretcher. Support person present. Oriented to unit, room, information board, rooming in, admission packet and security measures. Patient verbalizes understanding.
--- NOTE | 2024-12-02 16:10 | PC.NURSE ---
1540. Introductions were made, then consulted with patient to assess needs related to . Discussed with mother her plans to feed her and the experience so far. Mom expressed that it is her intention to exclusively breastfeed. Encouraged mother to express any questions or concerns she has regarding feedings. Advised her to call out for a latch check or if she needs assistance waking or positioning baby. Reviewed the blue feeding worksheet for required output and feeding at least 8-12 times every 24 hours. Reviewed feeding cues with mom at this time. Resources provided for inpatient and outpatient services with the feeding sheet, mom/baby guide, admission packet and name/number written on the communication board. Mother voiced understanding of information and will call if there is a request for assistance. Reported to the Primary RN.
[2024-12-02] MEDS: HYDROcodone/acetaminophen (*CRX) 5-325 MG TABLET 1 TAB PO (17:05)
[2024-12-02] MEDS: DOCUSATE SODIUM 100 MG CAPSULE PO (17:06)
[2024-12-02] MEDS: SIMETHICONE 80 MG TAB.CHEW PO (17:06)
[2024-12-02] MEDS: DEXTROSE 5%/0.45% SOD CHL 1,000 ML 125 ML IV CONT (17:10)
[2024-12-02] MEDS: HYDROcodone/acetaminophen (*CRX) 10-325 MG TABLET 1 TAB PO (20:18)
[2024-12-03 00:48] VITALS: BP 90/52
[2024-12-03] MEDS: ACETAMINOPHEN 325 MG TABLET 650 MG PO ×4 (03:20→21:11)
[2024-12-03] MEDS: IBUPROFEN 600 MG TABLET PO ×4 (03:20→21:11)
[2024-12-03 03:30] VITALS: BP 117/90; PULSE 57; RESP 16; TEMP 36.3; O2SAT 97
[2024-12-03 04:07] LABS: Basophils Absolute Auto 0.1 K/mm3 (0.0-0.1); Basophils Percent Auto 0.3 % (0.2-1.2); Eosinophils Percent Auto 0.1 % (0-4.4); Hematocrit 28.2 % (37.0-47.0); Hemoglobin 9.6 g/dL (12.0-15.0); Immature Granulocyte Absolute 0.11 K/mm3 (0.00-0.031); Immature Granulocyte Percent A 0.6 % (0-0.5); Lymphocytes Absolute Auto 2.92 K/mm3 (0.9-3.2); Lymphocytes Percent Auto 15.9 % (18.3-44.2); Mean Corpuscular Hemoglobin 31.7 pg (26-34); Mean Corpuscular Volume 93.1 fl (80-100); Mean Platelet Volume 12.1 fl (7.4-10.4); Monocytes Absolute Auto 0.7 K/mm3 (0.1-0.6); Neutrophils Absolute Auto 14.5 K/mm3 (1.3-6.7); Neutrophils Percent Auto 79.1 % (45.5-73.1); Platelet Count Result 176 k/mm3 (150-375); Red Blood Count 3.03 M/mm3 (4.2-5.4); Red Cell Distribution Width 12.4 % (11.5-14.5); White Blood Count 18.4 K/mm3 (4.5-10.0)
[2024-12-03] MEDS: HYDROcodone/acetaminophen (*CRX) 10-325 MG TABLET 1 TAB PO ×2 (07:02→23:15)
--- NOTE | 2024-12-03 07:25 | PC.NURSE ---
Primary RN helped patient attempt to latch without much success. Baby would open her mouth and hold the nipple but wouldn't suck. Mom was still attempting when I entered the room. Baby was no longer giving any feeding cues or trying to open her mouth to latch. Mom was encouraged to hold baby skin to skin upright on her chest and observe for early feeding cues. If none seen, she should try to wake baby to feed again in 30 minutes. Mom states that baby had some breast milk from the bottle and was gagging on the nipple at the last feeding. Educated that it takes baby time to learn how to eat from a bottle. Dr. Blue entered the infant's weight in the NEWT tool and baby is below the 95th percentile for weight loss. Will follow closely today and initiate feeding plan if needed. Reported to primary RN.
[2024-12-03 07:30] VITALS: BP 123/88; PULSE 53; RESP 16; TEMP 36.7; O2SAT 100
--- NOTE | 2024-12-03 07:45 | P.PNOB_ITS ---
OB - PN: Subj Subjective Date/time seen: 12/03/24 07:45 Interval history: post op day 1 doing well OB - PN: Obj Data Labs 12/03/24 03:26 Labs: Laboratory Results - last 24 hr 12/02/24 12/03/24 08:06 03:26 WBC 18.4 H RBC 3.03 L Hgb 9.6 L Hct 28.2 L MCV 93.1 MCH 31.7 MCHC 34.0 RDW 12.4 Plt Count 176 MPV 12.1 H Immature Gran % (Auto) 0.6 H Neut % (Auto) 79.1 H Lymph % (Auto) 15.9 L [place] % (Auto) 4.0 Eos % (Auto) 0.1 Baso % (Auto) 0.3 Lymph # (Auto) 2.92 [place] # (Auto) 0.7 H Eos # (Auto) 0.0 Baso # (Auto) 0.1 Abs Immat Gran (auto) 0.11 H Absolute Neuts (auto) 14.5 H Absolute Nucleated RBC 0.000 Nucleated RBC % 0.0 Membranes Rupture Rom plus negative OB - PN A/P Plan day: 1 Plan: routine care Time Spent With Patient Time: Total time spent is greater than 50% in coordination of care (as documented) at patient's floor/unit and/or counseling patient: Review of Systems 2 Review of Systems: All systems reviewed & are unremarkable except as noted in HPI and below Exam 2 Const: General: cooperative and healthy appearing Chest: Chest palpation & inspection: normal inspection of the chest Resp: Effort & Inspection: normal respiratory effort Cardio: Rate: regular rate GI: Other: incision CDI
[2024-12-03] MEDS: POLYSACCHARIDE IRON COMPLEX 150 MG CAPSULE PO ×2 (09:20→17:43)
[2024-12-03] MEDS: FAMOTIDINE 10 MG TABLET PO (09:20)
[2024-12-03] MEDS: MULTIVIT/MIN/PREN/FOL AC/IRON TABLET 1 TAB PO (09:20)
[2024-12-03] MEDS: SIMETHICONE 80 MG TAB.CHEW PO ×3 (09:20→17:43)
[2024-12-03] MEDS: DOCUSATE SODIUM 100 MG CAPSULE PO ×2 (09:20→17:43)
[2024-12-03] MEDS: LIDOCAINE 5% PATCH 1 PATCH TRANSDERM (14:23)
[2024-12-03] MEDS: HYDROcodone/acetaminophen (*CRX) 5-325 MG TABLET 1 TAB PO ×2 (14:23→20:11)
--- NOTE | 2024-12-03 14:30 | PC.NURSE ---
Met with mother regarding feeding plan initiation. Primary RN reviewed that baby should be supplemented after each . Encouraged mom to pump for 15 minutes at a time. Patient intends to save pumped milk for the next feeding so that she is always one ahead. Advised patient that if she has any other questions or concerns she can call out for assistance.
--- NOTE | 2024-12-03 17:24 | WPDANLDPN2 ---
Anes-Prog Note L&D Date/Time: 12/03/24 17:24 Comfortable throughout: section Neuraxial method: spinal Epidural/Spinal procedure site: clean & non-tender Neuro status: Neuro function grossly intact. Cardiovascular status: normal Respiratory status: normal Airway patency: baseline Mental status: baseline Post-Op hydration status: normal Vital Signs: Last Vital Signs Temp 98.1 F 12/03/24 07:30 Pulse 53 L 12/03/24 07:30 Resp 16 12/03/24 07:30 BP 123/88 12/03/24 07:30 Pulse Ox 100 12/03/24 07:30 O2 Del Method Room Air 12/03/24 07:10 Pain score (VAS): 0/10 I/O: Intake & Output 12/03/24 12/03/24 12/03/24 07:59 15:59 23:59 Intake Total 1000 0 Output Total 1450 Balance -450 0 Post-procedural complaints: none Patient feedback: Patient satisfied with anesthetic care.
--- NOTE | 2024-12-03 17:25 | WPDANLDNPN2 ---
Anes-Prog Note L&D-Neuraxial Date/Time: 12/03/24 17:25 Neuraxial medications: intrathecal PF morphine Opiod-related complaints: none Patient feedback: Patient satisfied with post-operative pain management.
[2024-12-03] MEDS: BISACODYL 10 MG SUPPOSITORY RECTAL (18:50)
[2024-12-03 23:19] VITALS: BP 119/76; PULSE 73; RESP 18; TEMP 36.3; O2SAT 100
[2024-12-04] MEDS: IBUPROFEN 600 MG TABLET PO ×2 (04:25→10:47)
[2024-12-04] MEDS: ACETAMINOPHEN 325 MG TABLET 650 MG PO ×2 (04:25→10:47)
[2024-12-04] MEDS: HYDROcodone/acetaminophen (*CRX) 5-325 MG TABLET 1 TAB PO ×2 (05:33→08:56)
[2024-12-04 08:45] VITALS: BP 135/79; PULSE 72; RESP 16; TEMP 36.6; O2SAT 98
[2024-12-04] MEDS: MULTIVIT/MIN/PREN/FOL AC/IRON TABLET 1 TAB PO (08:47)
[2024-12-04] MEDS: POLYSACCHARIDE IRON COMPLEX 150 MG CAPSULE PO (08:47)
[2024-12-04] MEDS: SIMETHICONE 80 MG TAB.CHEW PO ×2 (08:47→12:16)
[2024-12-04] MEDS: DOCUSATE SODIUM 100 MG CAPSULE PO (08:47)
[2024-12-04] MEDS: FAMOTIDINE 10 MG TABLET PO (08:57)
[2024-12-04] MEDS: INFLUENZA TRIVALENT VACCINE 45 MCG/0.5 ML SYRINGE IM (12:16)
[2024-12-04] MEDS: HYDROcodone/acetaminophen (*CRX) 10-325 MG TABLET 1 TAB PO (12:21)
--- NOTE | 2024-12-04 13:56 | P.PNOB_ITS ---
OB - PN: Subj Subjective Date/time seen: 12/04/24 13:56 Interval history: post op day 1 doing well Patient comments: no complaints, pain well controlled, incisional pain, tolerating diet and flatus present OB - PN: Obj Data Labs 12/03/24 03:26 OB - PN A/P Plan day: 2 Plan: routine care Comments: POD#2 LTCS - no problems, Time Spent With Patient Time: Total time spent is greater than 50% in coordination of care (as documented) at patient's floor/unit and/or counseling patient: Exam 2 Const: General: comfortable, no acute distress and alert Resp: Effort & Inspection: normal respiratory effort Auscultation: no crackles, no rales and no rhonchi Cardio: Rate: regular rate Heart sounds: no click, no murmurs and no rubs GI: Inspection: non-distended Auscultation: normal bowel sounds Other: Incision - CDI Extrem: General: normal to inspection, no pedal edema and no calf tenderness
--- NOTE | 2024-12-04 13:57 | P.DS_ITS ---
DS: Admitting Diagnosis Discharge Date 12/04/2024 Admitting Diagnosis Term DS: Discharge Diagnosis Discharge Diagnosis (1) delivery delivered: Code(s): O82 - Encounter for delivery without indication Status: Acute (2) Previous delivery, delivered: Code(s): O34.219 - Maternal care for unspecified type scar from previous delivery Status: Acute OB - DS: Summary OB Procedures : None OB Procedures Intrapartum: OB Procedures: : None Peripartum Data Procedures: Procedures Operation Date: 12/02/24 10:30 Actual Procedure Side Surgeon p Section Not Applicable Keny Smith MD Time Spent with Patient Time attestation: Total time spent providing and/or coordinating discharge services: Discharge Plan Discharge Discharging Clinician: Keny Smith Patient Disposition: Home, Self-Care Activity: pelvic rest Diet: regular Patient Instructions: Antibiotic Form Patient Language: Croatian Stand Alone Forms: General Discharge Information Follow-up/Referrals: Keny Smith MD [Physician] - Discharge Medications: New hydrocodone-acetaminophen 5-325 mg tablet 1 - 2 tablet PO Q6H PRN (Reason: pain) Qty: 25 0RF Continued albuterol sulfate 90 mcg/actuation HFA aerosol inhaler INHALATION PNV #[id number] acid-omega3 30 mg iron-10 mg iron-1 mg capsule PO famotidine [Acid Controller] 10 mg tablet 10 mg PO DAILY Date of admission: 12/02/24 05:19 Primary Care Provider: Maureen,Selin Santillan Admitting Provider: eKny Smith Attending physician on admission: Keny Smith Condition: Stable
[2024-12-06 10:28] VITALS: BP 128/88; PULSE 73; RESP 18; TEMP 36.8; O2SAT 99
== END 2024-12-04 14:48 | disposition home or self-care (01) | DRG 540 ==
LOC: ANHLDR 05:23 → ANHOB2 14:26
PROVIDERS: Admitting Provider Obstetrics & Gynecology; PCP Family Medicine; Visit Provider Obstetrics & Gynecology
PROC: 10D00Z1 Extraction of Products of Conception, Low, Open Approach (ICD-10-PCS; CPT 59514; principal; 2024-12-02 10:30)
DX: O34.211 Maternal care for low transverse scar from previous cesarean delivery (principal); Z37.0 Single live birth; Z3A.39 39 weeks gestation of pregnancy; O69.81X0 Labor and delivery complicated by cord around neck, without compression, not applicable or unspecified; Z23 Encounter for immunization
CPT/HCPCS: 36415; 84112; 85025; 90471; 90656; A9270; G0008; J0690; J1100; J1885; J2274; J2405; J2590; J7120

== ENCOUNTER 2024-12-09 20:12 | Outpatient (CLI) | payer OTHER, SELFPAY ==
[2024-12-09] VITALS (19 sets, daily range): BP systolic 129–141; BP diastolic 88–93; PULSE 59–75; TEMP 36.7; O2SAT 94–100
--- NOTE | 2024-12-09 20:12 | PC.NURSE ---
Pt arrives to unit with elevated blood pressure at home.
--- OUTSIDE RECORDS SUMMARY | 2024-12-09 20:20 | XMS_ITS | Data Portability ---
Author Organization [facility] Winsome Magdaleno Address [address] [place] [address] Care Team Providers Care Employee Placement Specialist Name Role Phone SANATERRY Primary Care Provider [phone] EULA CARDOSO Primary Care Provider Unavailabl e Assessment Encounter Date Assessment Date Assessment LastModified by Organization Details LastModified Time 04/10/2022 04/10/2022 20 lbb weight loss in 2 years Not available 04/10/2022 14:31:07 Plan of Treatment Reminders Order Date Submit Date Provider Last Modified By Organization Details Last Modified Time Details Appointments None recorded. Lab None recorded. Referral site promotion agent & immunologis t referral 2022 023 ced Geller, [address] [facility], [place], [address], 3 11:39:28 ophthalmolo gist referral 2022 023 Anne Cespedes MD, [address] [place], [address], 3 14:04:08 general surgeon referral 2021 022 ced Rivas MD, [address] [facility] [address], [address], [address], 2 12:04:41 Procedures None recorded. Surgeries None recorded. Imaging None recorded. Medication Orders dicyclomine 10 mg capsule 2022 023 [email or web address] [id number], [address], [place], [address], 3 17:09:07 ondansetron HCl 4 mg tablet 2022 023 JOSE ALBERTO [facility] [address] [facility], [address] [place], [address], 3 16:11:58 albuterol sulfate HFA 90 mcg/actuati on aerosol inhaler 2022 023 JOSE ALBERTO [facility] [address] [facility], [address] [facility], [place], [address], 3 16:17:23 Maxitrol 3.5 mg/mL-10,00 0 unit/mL-0.1 % eye drops,suspe nsion 2022 023 [email or web address] [facility] [address], [address], 3 16:05:00 Zithromax Z-[place] 250 mg tablet 2020 021 [email or web address] [facility] [address], [address], 14:11:02 ofloxacin 0.3 % ear drops 2020 021 [email or web address] [address], [address], 14:14:41 Patient TargetsNo targets recorded. Patient Instructions Encounter Date Encounter Id Patient Instructions Last Modified By Organization Details Last Modified Time 12/19/2020 [id number] ear infection (otitis media): care instructions Not available 12/20/2020 07:44:51 01/01/2023 [id number] Ret if still symptomatic in 1 month. [email or web address] Not available 01/01/2023 14:32:32 Reason for Referral General Surgeon Referral for Hemorrhoids Referring Physician: Terry Sana, Car And Yard Supervisor, Encounter Date: 04/10/2022 Spa Host & Residential Child Care Counselor Ref erral for Allergic rhinitis allergies not responsive PO meds Referring Physician: Alona Holden [facility], Encounter Date: 11/27/2022 Director Foundation Referral for Hordeolum internum of upper eyelid of right eye Referring Physician: Alona Holden [facility], Encounter Date: 11/27/2022 Problems Name Problem SNOMED Code Status Onset Date Resolution Date Notes Provider Name and Address Organization Details Recorded Time Hemorrhoids 22774792 Active 2021 AYAZ WAGNER Attn: Zeny cyndi,[address] [facility], [place], [address], [facility] 2 14:43:09 Elevated blood-pressure reading without diagnosis of hypertension 582503496 Active 2021 AYAZ WAGNER Attn: Zeny hanna,[address] [facility], [place], [address], [facility] 2 14:43:10 Problem Notes None recorded. Procedures Surgical History Date Name Laterality Status Provider Name and Address Organization Details Recorded Time 03/22/2020 Date of Last Pap Smear completed Tracee Toro MA [facility] 06/05/2020 10:54:54 Imaging Results None recorded. Procedure Notes None recorded. Medical Equipment None Reported. Allergies Allergen ID Allergen Name Allergen Category Reaction Reaction Severity Criticality Documentation Date Start Date Code Code System Note Provider Name and Address Organization Details Recorded Time 602403 Product containin g penicilli n (product) medicatio n abdominal pain Not available Not available 11/19/2019 26779 8001 SNOMED Not Available Not Available Not Available 976645 amoxicill in medicatio n cough Not available Not available 11/19/2019 723 RxNorm Not Available Not Available Not Available 854609 codeine medicatio n itching Not available Not [...] Updated DateTime 2 95 /min 98.5 [degF] 63952.0 3 g 21.9 kg/m2 162.56 cm 16 /min 99 % 99 % 122 mm[Hg] 88 mm[Hg] Boyd Ho MA [facility] 2 14:09:31 Date Recorded Body height Body mass index (BMI) Body weight Oxygen saturation Oxygen saturation in Arterial blood by Pulse oximetry Heart rate Respiratory rate Body temperature Systolic blood pressure Diastolic blood pressure Provider Name and Address Organization Details Last Updated DateTime 3 162.56 cm 21.5 kg/m2 95882.5 g 97 % 97 % 82 /min 16 /min 98 [degF] 124 mm[Hg] 78 mm[Hg] Ita Brenner CMA [facility] 3 12:33:13 Date Recorded Body height Body temperature Heart rate Systolic blood pressure Diastolic blood pressure Provider Name and Address Organization Details Last Updated DateTime 01/01/2023 162.56 cm 97.1 [degF] 88 /min 143 mm[Hg] 95 mm[Hg] Tracee Funesborn [facility] 3 14:09:28 Date Recorded Body height Body mass index (BMI) Body weight Oxygen saturation Oxygen saturation in Arterial blood by Pulse oximetry Heart rate Respiratory rate Body temperature Systolic blood pressure Diastolic blood pressure Provider Name and Address Organization Details Last Updated DateTime 3 162.56 cm 22.4 kg/m2 18042.1 1 g 98 % 98 % 83 /min 16 /min 98.1 [degF] 116 mm[Hg] 83 mm[Hg] Ita Brenner CMA [facility] 3 16:04:05 Social History Question Answer Notes LastModified by Organizat ion Details LastModified Time Tobacco Smoking Status Never Smoker Óscar Kraus MA [facility], [facility] 11/19/2019 11:30:26 Do You Have An [...] Do You Have A Medical Power Of 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 No Information not available 01/01/2023 What Was [...] Response Coronary Artery Disease N Other Y Atrial Fibrillation N High Blood Pressure N Kidney or Bladder Problems N Thyroid Problems N GI Problems N Depression N COPD N Blood Clots N Skin Problems N Anemia N Heart Attack (ND) N Anxiety Disorder N Diabetes N Muscle, Joint, or Bone Problems N Seizures/Epilepsy N Acid Reflux (GERD) N Cancer N Stroke N Asthma Y Allergies N High Cholesterol N Hepatitis N Liver Disease N Headaches N Heart Failure N Osteoporosis N Gynecological History Statement/Question Response Flow Moderate [...] SNOMED-CT Code Diagnosis ICD10 Code Diagnosis Note [id number] AYAZ WAGNER [facility] [address] [place] [address] 11/19/2019 11:03:36 11/19/2019 16:25:49 Upper respiratory infection 23658407 J06.9 5 days of URI. No fever or chills right now. tested negative for flu/strep at [facility] on friday. On exam patient has mild cough. TM clear. Lungs clear. afebrile. - tea, soup, honey for throat- may take robitussin for cough, she is breast feeding and I advised not taking if not needed- f/u if worsening or not improving in the next 72 hours- wash hands to avoid spread of germs [id number] AYAZ WAGNER [facility] [address] [place] [address] 06/05/2020 10:51:15 06/07/2020 13:05:43 Right upper quadrant pain 709995061 R10.11 Patient presents for problems with my gallbladde r x yearspain worse with eating, lasts a few hours and happens frequently . some blood in stool but states due to hemorrhoid s. Denies fever, chills, jaundice, sob, cp, black/dark stools. - labs- US gallbladde r- may need PPI tx and EGD- ER if jaundice , fever, chills [id number] AYAZ WAGNER [facility] [address] [place] [address] 07/20/2020 11:54:02 07/21/2020 08:48:26 Infection of skin 616869838 L08.9 patient toe is draining, swollen, painful. Denies streak going up leg, fever, chills. doxycyclin e due to allergy with penicillin . Ingrowing toenail 063909 009 L60.0 Patient has been struggling with ingrown toenail for a few months. Recently has gotten infected and is draining puss, red, and painful. Will treat with doxy and she swells up with penicillin and has never tried cephalospo rin. After patient finishes antibiotic she is to f/u with apron trimmer . [id number] SREEDHAR HINOJOSABARBTristan [facility] [address] [place] [address] 08/02/2020 14:02:38 08/02/2020 17:10:17 Ingrowing nail 904348180 L60.0 [id number] SREEDHAR SCHILLINGBARB HUGHESTristan [facility] [address] [place] [address] 08/23/2020 14:19:37 09/04/2020 09:32:24 Ingrowing nail 005056924 L60.0 [id number] SREEDHAR HINOJOSABARBTristan [facility] [address] [place] [address] 09/06/2020 13:53:51 09/07/2020 12:18:48 Ingrowing nail 949595477 L60.0 [id number] AYAZ WAGNER [facility] [address] [place] [address] 12/12/2020 08:04:37 12/12/2020 11:12:04 Seasonal allergic rhinitis 389326702 J30.2 patient with season allergies states vicks spay, benadryl and anaya are not helping much. will change to claritin and flonase for symptom relief. COVID test as she also lost smell/tast e, developed diarrhea and aunt has similar symptoms. Exposure t o SARS-CoV-2 987793956 Z20.822 loss of smell and taste, diarrhea. D/w pt the current pandemic of COVID-19 and call for social isolation in order to blunt the curve and minimize risk and spread. Encouraged patient and family to take restrictio ns seriously. They have verbalized understand ing of such. [id number] AYAZ WAGNER [facility] [address] [place] [address] 12/19/2020 08:07:39 12/20/2020 13:09:11 Acute left otitis media 892871327 H66.92 - zpack due to allergy and ear drops due to ear drainage - avoid qtips in ears - Tylenolfor pain - f.u if not improving [id number] AYAZ WAGNER [facility] [address] [place] [address] 04/10/2022 13:37:28 04/11/2022 09:50:04 Elevated blood-pressure reading without diagnosis of hypertension 883024317 R03.0 122/88 today. Was taken off estroen OCP and palced on POP. She is to moniot and write down BP this week and send me on portal. Dad at 53 from cardiac related issues. - she is eating healthy diet- drinks mainly water- she is excercisin g Hemorrhoids 12568454 K64 .9 internal hemorrhoid . creams have not worked. Anxiety 30186692 F41.9 Patient reports some anxiety. Managing well with excercise, healthy diet, mediation, spening time with famnily and sleeping well. will moniot. list of counselors given to patient to call and schedule therapy. Ultraviole t-induced skin pigmentation - tanning 637767503 L56.8 advised not to tidwell, wear sunscreen outside [id number] AYAZ MOORE [facility] [address] [place] [address] 11/27/2022 12:13:40 11/27/2022 14:24:13 Hordeolum internum of upper eyelid of right eye 2585804195 18532 H00.021 x1 yrpt showed provider picture of stye yesterday to R upper inner eyelidnone visible on exam todayPEx- nlrefer to eye Allergic rhinitis 790643 04 J30.9 c/o rhinorrhea has tried anaya, claritin and zyrtec w/o reliefrefe r to site promotion agent Depression screening 171 732715 Z13.31 PHQ 0 [id number] Anne Cespedes MD [facility] [address] [facility] [place] [address] 01/01/2023 13:57:37 01/02/2023 12:37:14 Chalazion of right upper eyelid 2745742479 57838 H00.11 [id number] AYAZ MOORE [facility] [address] [place] [address] 05/20/2023 15:54:41 05/22/2023 11:57:14 Nausea 351200292 R11.0 x3 daysa/w abd pain and diarrheatr ial zofrankeep diet bland Abdominal pain 58099482 R10.9 x3 daysa/w nausea and diarrheaac ross [...] seek immediate re-evaluat ion History of asthma 806207 007 Z87.09 c/o chest tightness with working out, feels like she can't get a deep breath inh/o asthma as a young childreque sting albuterol inhaler Depression screening 171 434938 Z13.31 PHQ 0 Health Concerns Section Related Observation LastModified by Organization Detai ls LastModified Time None Recorded Concern Status LastModified by Organization Details LastModified Time None Recorded Advance Directives Directive N: Payers Encounter Date Sequence Insurance Name Policy Number Policy Christianson Covered Member ID Christianson Member ID Guarantor Name 12/19/2020 1 [employer] PRIOR TO 03/22/2021 (MEDICAID REPLACEMENT - HMO) Leoncio Lazaro [id number] Leoncio Lazaro 04/10/2022 1 [employer] PRIOR TO 03/22/2021 (MEDICAID REPLACEMENT - HMO) Leoncio Lazaro [id number] Leoncio Lazaro 11/27/2022 1 [employer] ON OR AFTER 03/22/21 (MEDICAID REPLACEMENT - O) Leoncio Lazaro [id number] Leoncio Lazaro 01/01/2023 1 [employer] ON OR AFTER 03/22/21 (MEDICAID REPLACEMENT - O) Leoncio Lazaro [id number] Leoncio Lazaro 05/20/2023 1 [employer] ON OR AFTER 03/22/21 (MEDICAID REPLACEMENT - O) Leoncio Lazaro [id number] Leoncio Lazaro Notes Date Note Type Note [...] AYAZ WAGNER Attn: Accounting,[address], [place], [address], [facility] 12/20/2020 07:45:36 04/10/2022 [...] AYAZ WAGNER Attn: Accounting,[address], [place], [address], [facility] 04/10/2022 14:45:45 11/27/2022 text/html Pt presents with stye to R eye x1 yr. States that inside corner of R eye gets swollen, becomes scratchy, irritating and causes vision issues. Symptoms are worse in the morning. She has used eye drops and warm compresses w/o relief. AYAZ MOORE Attn: Accounting,[address] [facility], [place], [address], [facility] 11/27/2022 13:56:37 01/01/2023 text/html C/O irritating l ump in the medial 1/3 of RUL.since a few months Anne Cespedes MD [address], [place], [address], [facility] 01/01/2023 14:32:54 05/20/2023 [...] or constipation. AYAZ MOORE Attn: Accounting,[address] [facility], [place], [address], [facility] 05/21/2023 11:11:58 OBGyn Episode Ob Episode Information Episode Created Date Number of Fetuses Patient Bloodtype Patient rh Status Prepregnancy Weight lbs Domestic Partner Domestic Partner Phone Father Name Toy Assembler Status 11/19/19 20 1 CLOSED Fetus Data First Name Last Name Admitted to NICU Weight (g) Sex Living Outcome Pediatric Complications Fetus ID Race Codes Race Delivery Type 3515.33 8 Full Term [id number] Only Ryder Calculation Initial Ryder Date Initial [...]
--- OUTSIDE RECORDS SUMMARY | 2024-12-09 20:20 | XMS_ITS | Continuity of Care Document ---
[facility] Address [address] [place] [address] Care Team Providers Care Attendant [employer] Store Name Role Phone EULA CARDOSO Primary Care Provider Assessment No assessment recorded. Plan of Treatment Reminders Order Date Submit Date Provider Last Modified By Organization Details Last Modified Time Details Appointments SURG POST OP 2024 01:15P Tristan BARONE MD Not available Not available Not available Lab None recorded. Referral None recorded. Procedures None recorded. Surgeries None recorded. Imaging None recorded. Medication Orders hydrocodo ne 5 mg-acetam inophen 300 mg tablet 2024 025 JOSE ALBERTO [facility] [address] [address], [place], [address], 12/09/2024 14:48:14 Patient TargetsNo targets recorded. Patient InstructionsNo instructions recorded. Reason for Referral None Reported. Results Created Date Observation Date Name Description Value Unit Range Abnormal Flag Note LastModifiedBy Organization Detail LastModifiedTime 07/19/2007/19/2024 US, obste tric, 2nd or 3rd trime ster No observ ation record ed. [facility] [address], [place], [address], 07/19/2024 19:15:54 07/19/2007/19/2024 US, obste tric, follo w-up No observ ation record ed. JOSE ALBERTO [address], [place], [address], 09/11/2024 13:23:53 10/08/19 25 10/08/2024 US, obste tric, follo w-up No observ ation record ed. coleck [facility] [address], [place], [address], 10/08/2024 18:02:18 10/08/19 25 10/08/2024 US, obste tric, follo w-up No observ ation record ed. JOSE ALBERTO [address], [place], [address], 11/22/2024 21:56:47 11/15/19 25 11/15/2024 US, obste tric, follo w-up No observ ation record ed. [email or web address] [facility] [address], [place], [address], 11/15/2024 13:12:13 11/15/19 25 11/15/2024 US, obste tric, follo w-up No observ ation record ed. [email or web address] [address], [place], [address], 11/15/2024 22:55:12 Result Notes None recorded. Problems Name Problem SNOMED Code Status Onset Date Resolution Date Notes Provider Name and Address Organization Details Recorded Time Single live [id number] Completed 201702/28/2021 Single live ;Re corded Elsewher e: No Locat ion: [facility] S ource: EHR Physical Scientist danielle: N Practi ce ID: 0001 Johnny lable Time: 12:00:00 PM Melissa jackson [place] - [facility] 15:45:22 Insertio n of intraute rine contrace ptive device Completed 201702/28/2021 Encounte r for insertio n of intraute rine contrace ptive device;R ecorded Elsewher e: No Locat ion: [facility] S ource: EHR Physical Scientist danielle: N Practi ce ID: 0001 Johnny lable Time: 03:15:00 PM Melissa Vázquez [facility] 15:41:[address] Concept Completed 201702/28/2021 Encntr for campus ambassador exam (general ) (routine ) w/o abn findings ;Recorde d Elsewher e: No Locat ion: [facility] S ource: EHR Physical Scientist danielle: N Practi ce ID: 0001 Johnny lable Time: 03:30:00 PM Melissa [facility] 15:45:25 Rubella screenin g status [id number] Completed 201702/28/2021 Encounte r for antenata l screenin g, unspecif ied;Connor rded Elsewher e: No Locat ion: [facility] S ource: EHR Physical Scientist danielle: N Practi ce ID: 0001 Johnny lable Time: 10:30:00 AM Melissa Vázquez [facility] 1 15:45:20 Pregnanc y, childbir th and puerperi um finding Completed 201702/28/2021 Encntr for suprvsn of normal first preg, second trimeste r;Record ed Elsewher e: No Locat ion: [facility] S ource: EHR Physical Scientist danielle: N Practi ce ID: 0001 Johnny lable Time: 10:30:00 AM Melissa Vázquez [facility] 1 15:45:12 Gestatio n period, 30 weeks [id number] Completed 201702/28/2021 30 weeks gestatio n of pregnanc y;Record ed Elsewher e: No Locat ion: [facility] S ource: EHR Physical Scientist danielle: N Practi ce ID: 0001 Johnny lable Time: 04:30:00 PM Melissa [facility] 15:40:54 Gestatio n period, 26 weeks [id number] Completed 201702/28/2021 26 weeks gestatio n of pregnanc y;Record ed Elsewher e: No Locat ion: [facility] sud[facility] S ource: EHR Physical Scientist danielle: N Sheldonti ce ID: 0001 Johnny lable Time: 02:30:00 PM Melissa jackson [facility] 15:40:52 Pregnanc y, childbir th and puerperi um finding Completed 201702/28/2021 Encntr for suprvsn of normal first preg, third trimeste r;Record ed Elsewher e: No Locat ion: [facility] sudheer [facility] S ource: EHR Physical Scientist danielle: N Sheldonti ce ID: 0001 Johnny lable Time: 10:00:00 AM Melissa Vázquez [facility] 15:45:[address] Concept Completed 201702/28/2021 Maternal care for oth abnormal ity and damage, unsp;Rec orded Elsewher e: No Locat ion: Allisonpamela willard [facility] S ource: EHR Physical Scientist danielle: N Sheldonti ce ID: 0001 Johnny lable Time: 04:30:00 PM Melissa jackson [facility] 15:45:24 Gestatio n period, 22 weeks [id number] Completed 201702/28/2021 22 weeks gestatio n of pregnanc y;Record ed Elsewher e: No Locat ion: [facility]ela sudheer [facility] S ource: EHR Physical Scientist danielle: N Practi ce ID: 0001 Johnny lable Time: 03:30:00 PM Melissa jackson [facility] 15:40:51 Contrace ption care manageme nt Completed 201802/28/2021 Encounte r for contrace ptive manageme nt, unspecif ied;Connor rded Elsewher e: No Locat ion: Noé willard [facility] S ource: EHR Physical Scientist danielle: N Sheldonti ce ID: 0001 Johnny lable Time: 01:30:00 PM Melissa jackson [facility] 15:40:44 Normal pregnanc y in joycegra reina [id number] 63653 Completed 201702/28/2021 Encounte r for suprvsn of normal pregnanc y, third trimeste r;Record ed Elsewher e: No [facility] S ource: EHR Physical Scientist danielle: N Practi ce ID: 0001 Johnny lable Time: 09:00:00 AM Melissa jackson [facility] 15:41:20 Antenata l screenin g for malforma tion Completed 201702/28/2021 Encounte r for antenata l screenin g for malforma tions;Re corded Elsewher e: No Locat ion: Noé willard [facility] S ource: EHR Physical Scientist danielle: N Practi ce ID: 0001 Johnny lable Time: 04:00:00 PM Melissa jackson [facility] 15:40:42 Pregnanc y detectio n examinat ion Completed 201702/28/2021 Encounte r for pregnanc y test, result positive ;Recorde d Elsewher e: No Locat ion: Noé willard [facility] S ource: EHR Physical Scientist danielle: N Practi ce ID: 0001 Johnny lable Time: 03:30:00 PM Melissa jackson [facility] 15:42:02 Pregnanc y test negative [id number] Completed 201702/28/2021 Encounte r for pregnanc y test, result negative ;Recorde d Elsewher e: No [facility]: [facility] Physical Scientist danielle: N Practi ce ID: 0001 Johnny lable Time: 03:15:00 PM Melissa Vázquez [facility] 15:45:09 Amenorrh ea [id number] Completed 201702/28/2021 Amenorrh ea;Recor ded Elsewher e: No Locat ion: Noé willard [facility] S ource: EHR Physical Scientist danielle: N Practi ce ID: 0001 Johnny lable Time: 03:30:00 PM Melissa Vázquez [facility] 15:40:37 Antenata l screenin g Completed 201702/28/2021 Encounte r for other specifie d antenata l screenin g;Practi ce ID: 0001 Melissa Vázquez [facility] 15:40:40 Pregnanc y-induce d hyperten moi Completed 201702/28/2021 Gestatio nal htn w/o signific ant proteinu blayne, unsp trimeste r;Practi ce ID: 0001 Melissa Vázquez [facility] 15:45:17 Gestatio n period, 38 weeks [id number] Completed 201702/28/2021 38 weeks gestatio n of pregnanc y;Practi ce ID: 0001 Melissa Vázquez [facility] 15:40:58 Head not engaged [id number] Completed 201702/28/2021 Maternal care for high head at term, not applicab le or unsp;Pra ctice ID: 0001 Melissa Vázquez [facility] 15:41:13 Failure of cervical dilation [id number] Completed 201702/28/2021 Primary inadequa te contract ions;Pra ctice ID: 0001 Melissa Vázquez [facility] 15:40:48 Gestatio n period, 39 weeks [id number] Completed 201702/28/2021 39 weeks gestatio n of pregnanc y;Practi ce ID: 0001 Melissa Vázquez null, [facility] 1 15:41:00 Lochia finding Completed 201702/28/2021 Encounte r for routine postpart um follow-u p;Practi ce ID: 0001 Melissa jackson, [facility] 1 15:41:18 Contrace ptive sheath status [id number] Completed 201802/28/2021 Encounte r for routine checking of intraute rine contrace p dev;Prac trinidad ID: 0001 Melissa jackson, [facility] 1 15:40:46 Pregnanc y [id number] Completed 202312/09/2024 Negra Ye [facility] 5 14:24:47 Past pregnanc y history of section 554627955 Completed NRFHR, failure to progress , TO REPEAT Keny Barone MD [address], [place], [address], [facility] 4 12:42:27 Asthma 841499886 Completed Debora Franklin CNM [address], [place], [address], [facility] 4 17:12:26 Heartbur n [id number] Completed Keny Barone MD [address], [place], [address], [facility] 4 13:21:22 Varicose veins in pregnanc y 7424265623 Completed suprapub ic Keny Barone MD [address], [place], [address], [facility] 4 12:43:44 Female steriliz ation Completed Consider ing Salpinge ctomy Keny Barone MD [address], [place], [address], [facility] 10:08:56 Problem Notes None recorded. Procedures Surgical History Date Name Laterality Status Provider Name and Address Organization Details Recorded Time 12/03/19 25 SECTION (SURG) completed Padmaja Lawrence [facility] 12/03/2024 09:24:12 03/29/20 24 Colposcopy completed Keny Barone MD [address], [place], [address], [facility] 03/29/2024 15:30:04 03/29/20 24 Colposcopy completed Negra Ye [facility] 03/29/2024 14:44:39 03/29/20 24 Colposcopy completed Negra Ye [facility] 03/29/2024 14:45:35 03/04/20 24 IUD Removal completed ROYCE Oglesby- [address], [place], [address], [facility] 03/04/2024 16:51:48 03/04/20 24 Date of Last Pap Smear completed Joyce Lugo [facility] 06/07/2024 10:58:36 07/04/20 22 IUD Insertion completed ROYCE Black [address], [place], [address], [facility] 07/04/2022 16:28:00 06/10/20 18 section completed Joyce Lugo [facility] 06/07/2024 15:30:35 09/22/19 09 extraction of wisdom tooth completed Joyce Lugo [facility] 06/07/2024 15:31:20 09/22/19 04 Oral surgery procedure completed Joyce Lugo [facility] 06/07/2024 15:30:57 Imaging Results None recorded. Procedure Notes None recorded. Medical Equipment None Reported. Allergies Allergen ID Allergen Name Allergen Category Reaction Reaction Severity Criticality Documentation Date Start Date Code Code System Note Provider Name and Address Organization Details Recorded Time 2573 codeine medicatio n Not available Not available Not available 07/24/2020 2670 RxNorm Alissa Schroedte reid [facility] 2 15:13:30 2574 amoxicill in medicatio n Not available Not available Not available 07/24/2020 723 RxNorm Joyce Lugo [facility] 4 15:31:41 892 metronida zole medicatio n Not available Not available Not available 02/25/2020 6922 RxNorm Melissa Vázquez [facility] 0 16:44:18 893 Product containin g penicilli n (product) medicatio n Not available Not available Not available 02/25/2020 12031 8001 SNOMED Melissa Vázquez [facility] 0 16:44:31 Medications Name Sig Start [...] ed Elsewher e: Yes Loca tion: Noé [facility] M odify By: [email or web address] E ncounter DateTime : 07/21/20 18 03:15:00 PM Not [...] completed Not Available Not Available Not Available hydrocodo ne 5 mg-acetam inophen 325 mg tablet TAKE 1 TO 2 TABLETS BY MOUTH EVERY 6 HOURS NEEDED FOR PAIN active Not Available Not Available No t Available metronida zole 0.75 % (37.5 mg/5 [...] Elsewher e: No Locat ion: Noé willard [facility] M odify By: bell Blanco r DateTime : [...] Elsewher e: No Locat ion: Noé willard [facility] odify By: bell Blanco r DateTime [...] Not Available Not Available Not Available 10/11 (28) 1 mg-20 mcg (21)/75 mg (7) tablet Take 1 tablet every day by oral route. 03/27 completed Not Available Not Available Not Available () 1.5 mg-30 mcg (21)/75 mg (7) tablet active Not Available Not Available Not Available famotidin e active Not Available Not Available Not Available active Not Available Not Avai lable Not Available hydrocodo ne 5 mg-acetam inophen 300 mg tablet Take 1 tablet every 4 hours by oral route. 2024 active Not Available Not Available Not Avai lable SUCTION OPERATOR-PNV-DH A 28 mg iron-1 mg-200 mg capsule take 1 capsule by oral route every day 07/08 completed Prescrib ed Elsewher e: No Locat ion: Noé [facility] odify By: marii munizunter DateTime : 01/20/20 18 11:47:21 AM Not Available Not Available Not Available Allergy 04/02 completed Not Available Not Available Not Available 28 mg-800 mcg tablet 02/28 completed Carol willard: Yes Loca tion: Noé willard [facility] Tristan odify By: marii Willard ncounter DateTime : 10/21/19 01:30:00 PM Not Available Not Available Not [...] Not Available Vitals Date Recorded Body height Body mass index (BMI) Body weight Systolic blood pressure Diastolic blood pressure Provider Name and Address Organization Details Last Updated DateTime 12/09/2024 162.56 cm 30.2 kg/m2 01044.26 g 154 mm[Hg] 104 mm[Hg] Negra Ye [facility] 5 14:23:01 Social History Question Answer Notes LastModified by Organizat ion Details LastModified Time Tobacco Smoking Status Former Smoker Jeanne jackson, [facility] 08/05/2022 14:49:44 Do You Have An Advance Directive? No Information not available 04/02/2022 What Is Your Level Of Alcohol Consumption? None [email or web address] Information not available 06/07/2024 If You Are , What Was Your Level Of Alcohol Consumption Prior To ? Occasional [email or web address] Information not available 06/07/2024 How Many Years Have You Consumed Alcohol? 5 Information not available 04/02/2022 Are You Blind Or Do You Have Difficulty Seeing? No Information not available 04/02/2022 What Is Your Level Of Caffeine Consumption? Moderate [email or web address] Information not available 06/07/2024 How Much Tobacco [...] Or Vape? Current User Of Electronic Cigarettes [email or web address] Information not available 08/05/2022 What Is The Highest Grade Or Level Of School You Have Completed Or The Highest Degree You Have Received? [id number] Information not available 04/02/2022 Are There Any Guns Present In Your Home? No Information not available 04/02/2022 Do You Use Protection During Sex? No [email or web address] Information not available 06/07/2024 Do You Use Your Seat Belt Or Car Seat Routinely? Yes Information not available 04/02/2022 Do You Have Smoke And Carbon Monoxide Detectors In Your Home? Yes Information not available 04/02/2022 How Much Tobacco Do You Smoke? No Information not available 04/02/2022 Do You Feel Stressed (tense, Restless, Nervous, Or Anxious, Or Unable To Sleep At Night)? [id number] [email or web address] Information not available 06/07/2024 Do You Use Any Illicit Or Recreational Drugs? No Information not available 04/02/2022 Do You Use Sunscreen Routinely? Yes Information not available 04/02/2022 Have You Used IV Drugs? No Information not available 04/02/2022 Do You Or Have You Ever Used Any Other Forms Of Tobacco Or Nicotine? Yes [email or web address] Information not available 08/05/2022 Sex: Unknown Functional Status Question Answer Note LastModified by Organizat ion Details LastModified Time Do you have difficulty walking or climbing stairs? No [email or web address] Information not available 08/05/2022 Are you able to walk? [email or web address] Information not available 04/02/2022 Are you able to care for yourself? Yes [email or web address] Information not available 08/05/2022 Do you have difficulty dressing or bathing? No [email or web address] Information not available 08/05/2022 What is your exercise level? Moderate Information not available 04/02/2022 Mental Status None recorded. Family History Relationship Description Onset Age of this Age Resolved Age Notes LastModified by Organization Details LastModified Time Mother Anemia [email or web address] Not available 02/25/2020 16:46:15 Mother Cyst of ovary [email or web address] Not available 11/21 14:01:24 Mother Blood coagulation disorder [email or web address] Not available 2019 10:22:03 Father Disorder of cardiovascul ar system [email or web address] Not available 11/21 14:01:24 Father Diabetes mellitus [email or web address] Not available 2019 16:48:10 Father Hyperlipidem ia [email or web address] Not available 11/21 14:01:24 Father Hypertensive disorder [email or web address] Not available 2019 16:49:32 Paternal Grandfather Hyperlipidem ia [email or web address] Not available 11/21 14:01:24 Paternal Grandfather Disorder of cardiovascul ar system [email or web address] Not available 11/21 14:01:24 Paternal Grandfather Diabetes mellitus [email or web address] Not available 2019 16:50:46 Paternal Grandfather Hypertensive disorder [email or web address] Not available 2019 16:51:43 Paternal Aunt Tuberculosis [email or web address] Not available 12/09/2024 14:01:24 Paternal Grandmother Hypertensive disorder [email or web address] Not available 2019 10:22:51 Medical History Condition Response Allergies (Food, seasonal, environmental ) Y Other N Breast Cancer N Drug/Latex Allergies/Reactions Y Blood Transfusion N Dermatologic Disorders N Lung Disease N Defects or Inherited Disease N Breast [...] of Flow (days) 6 Current Control Method Breastfeedi ng/GRAVES Age at First Child 29 Frequency of Cycle (Q days) 0 Sexually Active? Y Menses Monthly Y Date of DEXA bone scan Age of first menstrual cycle 13 Date of Last Pap Smear 03/04/2024 Sexual Problems? N LMP Approximate N Obstetrics History GPAL:G 2 P 2 0 0 2 Type Value Full Term 2 Living 2 Total 2 Past Encounters Encounter ID Performer Location Encounter Start Date Encounter Closed Date Diagnosis/Indication Diagnosis SNOMED-CT Code Diagnosis ICD10 Code Diagnosis Note [id number] Precious Montoya [facility] [address] [address] 11/15/2024 11:19:56 11/15/2024 12:06:08 Uterine size for dates discrepancy 042396719 O26.843 Z3A.36 [id number] Keny Barone MD [facility] [address] [address] 11/15/2024 11:20:34 11/15/2024 13:14:24 Routine care 164742080 Z34.80 [id number] Keny Barone MD [facility] [address],[facility] [place] [address] 11/25/2024 11:16:16 11/25/2024 12:38:35 Routine care 876306881 Z34.80 [id number] Keny Barone MD [facility] [address],[place] [address] 12/02/2024 09:00:23 12/07/2024 03:52:41 [id number] Keny Barone MD [facility] [address],[place] [address] 12/09/2024 14:01:14 12/09/2024 14:49:36 Pre-eclampsia 535761668 O14.95 this patient is a 34-year-ol d female presents for postop follow-up. She is elevated blood pressures today her incision is clean dry intact. She agreed to monitor her blood pressures at home. We talked about [facility] for a couple of hours. We elected to have her check her blood pressures at home frequently , report any over 150/100. She had also given preeclamps ia precaution s for severe features. She was given instructio ns to go to the hospital for severe range blood pressures. She is recovering normally otherwise. Her incisions clean dry and intact. She has some persistent pain with movement. To continue pain management . Health Concerns Section Related Observation LastModified by Organization Detai ls LastModified Time None Recorded Concern Status LastModified by Organization Details LastModified Time None Recorded Payers Encounter Date Sequence Insurance Name Policy Number Policy Christianson Covered Member ID Christianson Member ID Guarantor Name 12/09/2024 1 [facility] ON OR AFTER 03/22/21 (MEDICAID REPLACEMENT - HMO) Leoncio Lazaro [id number] Leoncio Lazaro Notes Date Note Type Note Provider Name and Address Organization Details Recorded Time 12/09/2024 text/html this patient is a 34-year-old female presents for postop follow-up. She is elevated blood pressures today her incision is clean dry intact. She agreed to monitor her blood pressures at home. [facility]. We elected to have her check her blood pressures at home frequently, report any over 150/100. She had also given preeclampsia precautions for severe features. She was given instructions to go to the hospital for severe range blood pressures. She is recovering normally otherwise. Her incisions clean dry and intact. She has some persistent pain with movement. To continue pain management. Keny Barone MD [address], [place], [address], [facility] 12/09/2024 14:48:34 OBGyn Episode Ob Episode Information Episode Created Date Number of Fetuses Patient Bloodtype Patient rh Status Prepregnancy Weight lbs Domestic Partner Domestic Partner Phone Father Name Loading Inspector Status 06/07/20 24 1 B Positive 142 Calin Mcnair CLOSED Fetus Data First Name Last Name Admitted to NICU Weight (g) Sex Living Outcome Pediatric Complications Fetus ID Race Codes Race Delivery Type Areith false 3373.59 05 F true Full Term weight loss 99689 Repeat Problems Problem Notes Problem Name Start Date End Date Resolution Snomed Code Not e Female sterilization 84541104 Considering Salpingectomy Varicose veins in 1123939151 suprapubic Heartburn 67952613 Asthma 190618076 Past history of section 345502665 NRFHR, failure to progress, TO REPEAT Ryder [...] Weight in lbs Pre/Post Dialysis Refused Weight 143.230083900107 BP Diastolic BP Location Tested BP Systolic [...] Type Weight in lbs Pre/Post Dialysis Refused 147.196032958322 BP Diastolic BP Location Tested BP Systolic [...] Type Weight in lbs Pre/Post Dialysis Refused 150.490076208245 BP Diastolic BP Location Tested BP Systolic [...] Type Weight in lbs Pre/Post Dialysis Refused 159.480718246215 BP Diastolic BP Location Tested BP Systolic [...] Type Weight in lbs Pre/Post Dialysis Refused 168.662265032644 BP Diastolic BP Location Tested BP Systolic [...] Type Weight in lbs Pre/Post Dialysis Refused 170.479436906610 BP Diastolic BP Location Tested BP Systolic [...] Weight in lbs Pre/Post Dialysis Refused Weight 173.318355823813 BP Diastolic BP Location Tested BP Systolic [...] Type Weight in lbs Pre/Post Dialysis Refused 177.560145127329 BP Diastolic BP Location Tested BP Systolic [...] Weight in lbs Pre/Post Dialysis Refused Weight 176.770276500523 BP Diastolic BP Location Tested BP Systolic [...] Type Weight in lbs Pre/Post Dialysis Refused 182.962927975168 BP Diastolic BP Location Tested BP Systolic [...] Weight in lbs Pre/Post Dialysis Refused Weight 184.193062308020 BP Diastolic BP Location Tested BP Systolic BP Type 88 L arm 129 sitting Fetus Heart Rate Present A 154 Present Fetus Movement A Yes Comments no complaints, no problems, routine care, no contractions, no vaginal bleeding, no loss of fluid, no cramping Flowsheet Date 12/02/2024 Palacio Score Blood Edema Fundus Height Fundus Units Glucose Ketones Leukocytes Nitrite Labor Signs Protein Cervic Dilation Cervic Effacement Cervic Station Type Weight in lbs Pre/Post Dialysis Refused BP Diastolic BP Location Tested BP Systolic BP Type Fetus Heart Rate Present Fetus Movement Comments Flowsheet Date 12/09/2024 Palacio Score Blood Edema Fundus Height Fundus Units Glucose Ketones Leukocytes Nitrite Labor Signs Protein Cervic Dilation Cervic Effacement Cervic Station Type Weight in lbs Pre/Post Dialysis Refused Weight [id number] BP Diastolic BP Location Tested BP Systolic BP Type 104 L arm 154 sitting Fetus Heart Rate Present Fetus Movement Comments Menstrual History Last Menstrual Date Menses Monthly On Bcp Conception Prior Menses Frequency Hcg Plus Date Menarche Onset Age 0603/04/2024 Delivery Information Delivery Date Delivery Type Labor Anesthesia Weeks Gestation Incision Type Labor Labor Length Hrs Delivered By Post Complications Tubal Sterilization Discharge Date Comments 5 Induce d [facility]-Sp inal 39 Low Transvers e Keny Larkin MD false Discharge Information Feeding Method Contraceptive Method Maternal HG B and HCT Levels
--- OUTSIDE RECORDS SUMMARY | 2024-12-09 20:20 | XMS_ITS | CONTINUITY OF CARE DOCUMENT ---
Author Name nasima nasima Address Unknown Organization [facility] Address [address] [place] [address] [address] [place] [address] Phone [phone] Care Team Providers Care Communications Consultant Name Role Phone Leo MARINELLI, Carla Unavailable AILYN EVANS MD Unavailable Unav ailable AILYN EVANS MD Unavailable Unav ailable INS[employer]ANCE [employer] Payer name Policy type / Coverage type [place] red libertarian ID [id number] PAY [id number]
--- OUTSIDE RECORDS SUMMARY | 2024-12-09 20:20 | XMS_ITS | Data Portability ---
Author Organization [facility] Address [address] [place] [address] [place] [address] Care Team Providers Care Systems Requirements Planner Name Role Phone EULA CARDOSO Primary Care Provider [phone] Assessment Encounter Date Assessment Date Assessment LastModified by Organization Details LastModified Time 11/15/2024 11/15/2024 Patient is ___weeks . Discussed [...] Procedures None recorded. Surgeries None recorded. Imaging US, obstetric , follow-up 2024 025 [email or web address] [facility], [address], [place], [address], 11/15/2024 21:14:59 Medication Orders hydrocodo ne 5 mg-acetam inophen 300 mg tablet 2024 025 JOSE ALBERTO [facility] [address] In [facility], [facility] E [facility] [address], [place], [address], 12/09/2024 14:48:14 Patient TargetsNo targets recorded. Patient [...] Resul ting Lab: [facility] [address] [facility] [address] Tel: CULTU RE ----- ----- ----- --- No Group B strep isola ruben at 2 days (dahlia ctive broth enhan cemen t) Not Available [facility] (Lab) [address] [place], [address], 11/18/2024 16:38:03 11/23/19 25 11/22/2024 CMP(C OMPRE HENSI VE METAB OLIC PANEL ) sodium 138 mmol/ L 133-14 6 Not Available [facility] (Lab) [address] [place], [address], 11/23/2024 12:55:30 11/23/19 25 11/22/2024 CMP(C OMPRE HENSI VE METAB OLIC PANEL ) potassium 4.3 mmol/ L 3.5-5. 1 Not Available [facility] (Lab) [address] [place], [address], 11/23/2024 12:55:30 11/23/19 25 11/22/2024 CMP(C OMPRE HENSI VE METAB OLIC PANEL ) chloride 103 mmol/ L 98-107 Not Available [facility] (Lab) [address] [place], [address], 11/23/2024 12:55:30 11/23/19 25 11/22/2024 CMP(C OMPRE HENSI VE METAB OLIC PANEL ) carbon dioxide 27 mmol/ L 21-31 Not Available [facility] (Lab) [address] [facility], [place], [address], 11/23/2024 12:55:30 11/23/19 25 11/22/2024 CMP(C OMPRE HENSI VE METAB OLIC PANEL ) anion gap 8 mmol/ L 4-13 Not Available [facility] (Lab) [address], [place], [address], 11/23/2024 12:55:30 11/23/19 25 11/22/2024 CMP(C OMPRE HENSI VE METAB OLIC PANEL ) blood urea nitrogen 8 mg/dL 7-[address] [facility] (Lab) [address], [place], [address], 11/23/2024 12:55:30 11/23/19 25 11/22/2024 CMP(C OMPRE HENSI VE METAB OLIC PANEL ) creatinine 0.62 mg/dL 0.60-1 .30 Not Available [facility] (Lab) [address], [place], [address], 11/23/2024 12:55:30 11/23/19 25 11/22/2024 CMP(C OMPRE HENSI VE METAB OLIC PANEL ) egfrcr (CKD-epi 2020) >90 mL/mi n/1.7 3_m2 >=60 Not Available [facility] (Lab) [address] [facility], [place], [address], 11/23/2024 12:55:30 11/23/19 25 11/22/2024 CMP(C OMPRE HENSI VE METAB OLIC PANEL ) calcium 8.7 mg/dL 8.3-10 .5 Not Available [facility] (Lab) [address], [place], [address], 11/23/2024 12:55:30 11/23/19 25 11/22/2024 CMP(C OMPRE HENSI VE METAB OLIC PANEL ) glucose 58 mg/dL 70-100 low Not Available [facility] (Lab) [address] [facility], [place], [address], 11/23/2024 12:55:30 11/23/19 25 11/22/2024 CMP(C OMPRE HENSI VE METAB OLIC PANEL ) protein, total 5.9 g/dL 6.4-8. 3 low Not Available [facility] (Lab) [address] [facility], [place], [address], 11/23/2024 12:55:30 11/23/19 25 11/22/2024 CMP(C OMPRE HENSI VE METAB OLIC PANEL ) albumin 3.3 g/dL 3.5-5. 0 low Not Available [facility] (Lab) [address] [facility], [place], [address], 11/23/2024 12:55:30 11/23/19 25 11/22/2024 CMP(C OMPRE HENSI VE METAB OLIC PANEL ) ALT 16 units /L 9-43 Not Available [facility] (Lab) [address] [place], [address], 11/23/2024 12:55:30 11/23/19 25 11/22/2024 CMP(C OMPRE HENSI VE METAB OLIC PANEL ) alkaline phosphatase 159 units /L 34-104 high Not Available [facility] (Lab) [address] [place], [address], 11/23/2024 12:55:30 11/23/19 25 11/22/2024 CMP(C OMPRE HENSI VE METAB OLIC PANEL ) AST 18 units /L 13-39 Not Available [facility] (Lab) [address] [place], [address], 11/23/2024 12:55:30 11/23/19 25 11/22/2024 CMP(C OMPRE HENSI VE METAB OLIC PANEL ) bilirubin, total 0.3 mg/dL 0.2-1. 2 Not Available [facility] (Lab) [address] [facility], [place], [address], 11/23/2024 12:55:30 11/23/19 25 11/22/2024 BILE ACIDS , TOTAL bile acids, total 2 umol/ L 0-10 Test Perfo rmed by: Ciro castro rn [facility] [address] [place] [address] Not Available [facility] (Lab) [address] [facility], [place], [address], 11/23/2024 12:55:31 11/15/19 25 11/15/2024 US, obste tric, follo w-up No observ ation record ed. [email or web address] [facility] [address], [place], [address], 11/15/2024 13:12:13 11/15/19 25 11/15/2024 US, obste tric, follo w-up No observ ation record ed. [email or web address] [address], [place], [address], 11/15/2024 22:55:12 Result Notes None recorded. Problems Name Problem SNOMED Code Status Onset Date Resolution Date Notes Provider Name and Address Organization Details Recorded Time Single live [id number] Completed 201702/28/2021 Single live ;Re corded Elsewher e: No Locat ion: [facility] S ource: EHR Regional Manager danielle: N Practi ce ID: 0001 Johnny lable Time: 12:00:00 PM Melissa Vázquez [place], [place] - [facility] 15:45:22 Insertio n of intraute rine contrace ptive device Completed 201702/28/2021 Encounte r for insertio n of intraute rine contrace ptive device;R ecorded Elsewher e: No Locat ion: [facility] S ource: EHR Regional Manager danielle: N Practi ce ID: 0001 Johnny lable Time: 03:15:00 PM Melissaterrence Vázquez [facility] 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 15:45:25 Rubella screenin g status [id number] Completed 201702/28/2021 Encounte r for antenata l screenin g, unspecif ied;Connor rded Elsewher e: No Locat ion: [facility] S ource: EHR Regional Manager danielle: N Practi ce ID: 0001 Johnny lable Time: 10:30:00 AM Melissaterrence Vázquez [facility] 1 15:45:20 Pregnanc y, childbir th and puerperi um finding Completed 201702/28/2021 Encntr for suprvsn of normal first preg, second trimeste r;Record ed Elsewher e: No Locat ion: [facility] S ource: EHR Regional Manager danielle: N Practi ce ID: 0001 Johnny lable Time: 10:30:00 AM Melissaterrence Vázquez [facility] 1 15:45:12 Gestatio n period, 30 weeks [id number] Completed 201702/28/2021 30 weeks gestatio n of pregnanc y;Record ed Elsewher e: No Locat ion: [facility] S ource: EHR Regional Manager danielle: N Practi ce ID: 0001 Johnny lable Time: 04:30:00 PM Melissa [facility] 1 15:40:54 Gestatio n period, 26 weeks [id number] Completed 201702/28/2021 26 weeks gestatio n of pregnanc y;Record ed Elsewher e: No Locat ion: [facility] S ource: EHR Regional Manager danielle: N Sheldonti ce ID: 0001 Johnny lable Time: 02:30:00 PM Melissa jackson, [facility] 1 15:40:52 Pregnanc y, childbir th and puerperi um finding Completed 201702/28/2021 Encntr for suprvsn of normal first preg, third trimeste r;Record ed Elsewher e: No Locat ion: [facility] sudheer [facility] S ource: EHR Regional Manager danielle: N Sheldonti ce ID: 0001 Johnny lable Time: 10:00:00 AM Melissa jackson [facility] [address] 15:45:[address] Concept Completed 201702/28/2021 Maternal care for oth abnormal ity and damage, unsp;Rec orded Elsewher e: No Locat ion: [facility] S ource: EHR Regional Manager danielle: N Sheldonti ce ID: 0001 Johnny lable Time: 04:30:00 PM Melissa jackson [facility] 15:45:24 Gestatio n period, 22 weeks [id number] Completed 201702/28/2021 22 weeks gestatio n of pregnanc y;Record ed Elsewher e: No [facility]at [facility]: EHR Regional Manager danielle: N Sheldonti ce ID: 0001 Johnny lable Time: 03:30:00 PM Melissa jackson [facility] 15:40:51 Contrace ption care manageme nt Completed 201802/28/2021 Encounte r for contrace ptive manageme nt, unspecif ied;Connor rded Elsewher e: No Locat ion: Noé [facility] S ource: EHR Regional Manager danielle: N Practi ce ID: 0001 Johnny lable Time: 01:30:00 PM Melissa jackson [facility] 1 15:40:44 Normal pregnanc y in multigra reina [id number] 51203 Completed 201702/28/2021 Encounte r for suprvsn of normal pregnanc y, third trimeste r;Record ed Elsewher e: No Locat ion: [facility] S ource: EHR Regional Manager danielle: N Practi ce ID: 0001 Johnny lable Time: 09:00:00 AM Melissa jackson [facility] 15:41:20 Antenata l screenin g for malforma tion Completed 201702/28/2021 Encounte r for antenata l screenin g for malforma tions;Re corded Elsewher e: No Locat ion: [facility] N Practi ce ID: 0001 Johnny lable Time: 04:00:00 PM Melissa jackson [facility] 1 15:40:42 Pregnanc y detectio n examinat ion Completed 201702/28/2021 Encounte r for pregnanc y test, result positive ;Recorde d Elsewher e: No [facility]at [facility] S ource: EHR Regional Manager danielle: N Practi ce ID: 0001 Johnny lable Time: 03:30:00 PM Melissa jackson [facility] 1 15:42:02 Pregnanc y test negative [id number] Completed 201702/28/2021 Encounte r for pregnanc y test, result negative ;Recorde d Elsewher e: No Locat ion: [facility] S ource: EHR Regional Manager danielle: N Practi ce ID: 0001 Johnny lable Time: 03:15:00 PM Melissa Vázquez [facility] 15:45:09 Amenorrh ea [id number] Completed 201702/28/2021 Amenorrh ea;Recor ded Elsewher e: No Locat ion: Noé willard [facility] S ource: EHR Regional Manager danielle: N Practi ce ID: 0001 Johnny lable Time: 03:30:00 PM Melissa jackson [facility] 15:40:37 Antenata l screenin g Completed 201702/28/2021 Encounte r for other specifie d antenata l screenin g;Practi ce ID: 0001 Melissa Vázquez [facility] 15:40:40 Pregnanc y-induce d hyperten moi Completed 201702/28/2021 Gestatio nal htn w/o signific ant proteinu blayne, unsp trimeste r;Practi ce ID: 0001 Melissa Vázquez [facility] 15:45:17 Gestatio n period, 38 weeks [id number] Completed 201702/28/2021 38 weeks gestatio n of pregnanc y;Practi ce ID: 0001 [facility] 15:40:58 Head not engaged [id number] Completed 201702/28/2021 Maternal care for high head at term, not applicab le or unsp;Pra ctice ID: 0001 Melissa jackson [facility] 15:41:13 Failure of cervical dilation 7143212 Completed 201702/28/2021 Primary inadequa te contract ions;Pra ctice ID: 0001 Melissa jackson [facility] 15:40:48 Gestatio n period, 39 weeks [id number] Completed 201702/28/2021 39 weeks gestatio n of pregnanc y;Practi ce ID: 0001 Melissa jackson [facility] 1 15:41:00 Lochia finding Completed 201702/28/2021 Encounte r for routine postpart um follow-u p;Practi ce ID: 0001 Melissa jackson, [facility] 1 15:41:18 Contrace ptive sheath status 886444266 Completed 201802/28/2021 Encounte r for routine checking of intraute rine contrace p dev;Prac trinidad ID: 0001 Melissa jackson, [facility] 1 15:40:46 Pregnanc y [id number] Completed 202312/09/2024 Negra Ye [facility], [facility] 5 14:24:47 Past pregnanc y history of section 048659897 Completed NRFHR, failure to progress , TO REPEAT Keny Barone MD [address], [place], [address], [facility] 4 12:42:27 Asthma 204148541 Completed Debora Franklin CNM [address], [place], [address], [facility] 4 17:12:26 Heartbur n 71479580 Completed Keny Barone MD [address], [place], [address], [facility] 4 13:21:22 Varicose veins in pregnanc y [id number] Completed suprapub ic Keny Barone MD [address], [place], [address], [facility] 4 12:43:44 Female steriliz ation Completed Consider ing Salpinge ctomy Keny Barone MD [address], [place], [address], [facility] 10:08:56 Problem Notes None recorded. Procedures Surgical History Date Name Laterality Status Provider Name and Address Organization Details Recorded Time 12/03/19 25 SECTION (SURG) completed Padmaja Lawrence [facility] 12/03/2024 09:24:12 03/29/20 24 Colposcopy completed Keny Barone MD [address], [place], [address], [facility] 03/29/2024 15:30:04 03/29/20 24 Colposcopy completed Negra Ye [facility] 03/29/2024 14:44:39 03/29/20 24 Colposcopy completed Negra Ye [facility] 03/29/2024 14:45:35 03/04/20 24 IUD Removal completed ROYCE Oglesby- [address], [place], [address], [facility] 03/04/2024 16:51:48 03/04/20 24 Date of Last Pap Smear completed Joyce Lugo [facility] 06/07/2024 10:58:36 07/04/20 22 IUD Insertion completed ROYCE Black [address], [place], [address], [facility] 07/04/2022 16:28:00 06/10/20 18 section completed Joyce Lugo [facility] 06/07/2024 15:30:35 09/22/19 09 extraction of wisdom tooth completed Joyce Lugo [facility] 06/07/2024 15:31:20 09/22/19 04 Oral surgery procedure completed Joyce Lugo [facility] 06/07/2024 15:30:57 Imaging Results Imaging Date Name Status LastModified by Organiz ation Details LastModified Time 11/15/2024 US, obstetric, follow-up completed [email or web address] [facility] [address], [place], [address], 11/15/2024 13:12:13 11/15/2024 US, obstetric, follow-up completed [email or web address], [place], [address], 11/15/2024 22:55:12 Procedure Notes None recorded. Medical Equipment None Reported. Allergies Allergen ID Allergen Name Allergen Category Reaction Reaction Severity Criticality Documentation Date Start Date Code Code System Note Provider Name and Address Organization Details Recorded Time 2573 codeine medicatio n Not available Not available Not available 07/24/2020 2670 RxNorm Alissa Kalyani mathews [facility] 2 15:13:30 2574 amoxicill in medicatio n Not available Not available Not available 07/24/2020 723 RxNorm Joyce Lugo [facility] 4 15:31:41 892 metronida zole medicatio n Not available Not available Not available 02/25/2020 6922 RxNorm Melissa Vázquez [facility] 0 16:44:18 893 Product containin g penicilli n (product) medicatio n Not available Not available Not available 02/25/2020 46948 8001 SNOMED Melissa Vázquez [facility] 0 16:44:31 Medications Name Sig Start [...] ed Elsewher e: Yes Loca tion: Noé [facility] M odify By: [email or web address] Willard raman DateTime : 07/21/20 18 03:15:00 PM Not [...] Elsewher e: No Locat ion: Noé willard [facility] M odify By: [email or web address] Bella mathews DateTime : 01/20/20 18 11:47:21 AM Not [...] for 7 nights 05/05 completed Prescrib ed Nedher e: No Locat ion: Allisonpamela willard [facility] M odify By: bell mathews DateTime : 03/10/20 03:00:00 PM Not Available Not Available Not [...] Not Available Not Available Not Avai lable RIVET [id number] A 28 mg iron-1 mg-200 mg capsule take 1 capsule by oral route every day 07/08 completed Prescrib ed Elsewher e: No Locat ion: [facility] odify By: marii Willard ncounter DateTime : 01/20/20 18 11:47:21 AM Not Available Not Available Not Available Allergy 04/02 completed Not Available Not Available Not Available 28 mg-800 mcg tablet 02/28 completed Prescrib ed Elsewher e: Yes [facility]oca [facility] odify By: marii Willard ncounter DateTime : 10/21/19 19 01:30:00 PM Not [...] Address Organization Details Last Updated DateTime 11/15/2024 74120.8113 4 g 131 mm[Hg] 89 mm[Hg] Negra Ye [facility] 11/15/2024 12:37:47 Date Recorded Body height Body mass index (BMI) Body weight Systolic blood pressure Diastolic blood pressure Provider Name and Address Organization Details Last Updated DateTime 11/25/2024 162.56 cm 31.6 kg/m2 01702 g 129 mm[Hg] 88 mm[Hg] Negra Ye [facility] 5 12:29:11 Date Recorded Body height Body mass index (BMI) Body weight Systolic blood pressure Diastolic blood pressure Provider Name and Address Organization Details Last Updated DateTime 12/09/2024 162.56 cm 30.2 kg/m2 29337.26 g 154 mm[Hg] 104 mm[Hg] Negra Mendezer [facility] 5 14:23:01 Social History Question Answer Notes LastModified by Organizat ion Details LastModified Time Tobacco Smoking Status Former Smoker Jeanne Ingram renetta, [facility] 08/05/2022 14:49:44 Do You Have An Advance Directive? No Information not available 04/02/2022 What Is Your Level Of Alcohol Consumption? None [email or web address] Information not available 06/07/2024 If You Are , What Was Your Level Of Alcohol Consumption Prior To ? Occasional [email or web address] Information not available 06/07/2024 How Many Years Have You Consumed Alcohol? 5 Information not available 04/02/2022 Are You Blind Or Do You Have Difficulty Seeing? No Information not available 04/02/2022 What Is Your Level Of Caffeine Consumption? Moderate [email or web address] Information not available 06/07/2024 How Much Tobacco [...] Or Vape? Current User Of Electronic Cigarettes [email or web address] Information not available 08/05/2022 What Is The Highest Grade Or Level Of School You Have Completed Or The Highest Degree You Have Received? [id number] Information not available 04/02/2022 Are There Any Guns Present In Your Home? No Information not available 04/02/2022 Do You Use Protection During Sex? No [email or web address] Information not available 06/07/2024 Do You Use Your Seat Belt Or Car Seat Routinely? Yes Information not available 04/02/2022 Do You Have Smoke And Carbon Monoxide Detectors In Your Home? Yes Information not available 04/02/2022 How Much Tobacco Do You Smoke? No Information not available 04/02/2022 Do You Feel Stressed (tense, Restless, Nervous, Or Anxious, Or Unable To Sleep At Night)? [id number] [email or web address] Information not available 06/07/2024 Do You Use Any Illicit Or Recreational Drugs? No Information not available 04/02/2022 Do You Use Sunscreen Routinely? Yes Information not available 04/02/2022 Have You Used IV Drugs? No Information not available 04/02/2022 Do You Or Have You Ever Used Any Other Forms Of Tobacco Or Nicotine? Yes [email or web address] Information not available 08/05/2022 Sex: Unknown Functional Status Question Answer Note LastModified by Organizat ion Details LastModified Time Do you have difficulty walking or climbing stairs? No Information not available 08/05/2022 Are you able to walk? YESWOREST Information not available 04/02/2022 Are you able to care for yourself? Yes [email or web address] Information not available 08/05/2022 Do you have difficulty dressing or bathing? No [email or web address] Information not available 08/05/2022 What is your [...] (Food, seasonal, environmental ) Y Other N Drug/Latex Allergies/Reactions Y Blood Transfusion N Breast Cancer N Dermatologic Disorders N Lung Disease N Defects or Inherited Disease N Breast Problem N Gestational Diabetes N Hematologic disorders N Anesthesia Complications N History of STI Y Deep Vein Thrombosis N Polycystic ovary syndrome N Anxiety Disorder N Autoimmune disease N Arthritis N Polyps N Infertility N Acid Reflux (GERD) N History of abnormal pap Y Cancer N Varicosities N Stroke N Neurologic/Epilepsy N Endometriosis N High Cholesterol N Fibromyalgia N Headaches N Kidney Disease N Heart Problems N Thyroid Problems N Kidney or Bladder Problems N GI Problems N Eating Disorder [...] Code Diagnosis Note [id number] Keny Barone MD [facility] [address] [address] 02/25/2020 14:13:16 03/03/2020 13:19:10 Gynecologic examination 16458212 Z01.419 This patient is here for her [...] prescribed . And sent to the pharmacy. [id number] Keny Barone MD [facility] [address] [address] 07/24/2020 11:55:51 07/24/2020 14:36:08 Hirsutism 953346363 L68.0 Contracept ion care management 709455297 Z30.9 this patient is a 30-year-ol d [...] androgens and to treat with spironolac tone. [id number] Keny Barone MD [facility] [address] [address] 02/28/2021 14:56:15 02/28/2021 16:35:36 Gynecologic examination 08564229 Z01.419 This patient is here for her annual exam. A thorough history was taken. A physical exam was performed. Age appropriat e routine health screening was ordered, performed, and discussed. Recommende d testing was ordered. She was asked to follow up in one year. She will be informed of any test results. [id number] ROYCE Black [facility] [address] [address] 04/02/2022 15:02:17 04/02/2022 16:24:15 Contraception care management 621860732 Z30.9 Gynecologi c examination 35393335 Z01.419 Take Calcium with Vitamin D 1200mg [...] paper copy of today's plan if desired. WWMichael combined OCP for control. Happy with this method.BP today 149/92 and then repeat was 140/90. We discussed need to switch to a progestin only method due to elevated BP.She denies hx of DVT/PE, stroke/OH, cancer, or liver diseaseDoe s not want [...] C in 3 months for med check [id number] ROYCE Black [facility] [address] [address] 07/03/2022 13:47:44 07/03/2022 14:25:29 Contraception care management 746697371 Z30.9 Does not like SlyndWe discussed all BC options. She had Mirena IUD in the past and did wellDiscus sed R/B of IUD (infection , perforatio n, etc). Patient agrees to these riskNot SA x 1 year. She will have bhcg done today, RTC for insertion tomorrow.D eclines STI testing, has had (-) STI testing since last SA. Discussed risk of IUD insertion without current (-) STI testing. Time spent in visit is a total of 30 mins with at least 50% of visit consisting of counseling and review of plan of care. Hot sweats [id number] R61 [id number] ROYCE Black [facility] [address],[place] [address] 07/04/2022 15:54:14 07/04/2022 16:30:49 Insertion of intrauterine contraceptive device [id number] Z30.430 She has been counseled on all [...] for IUD checkPatie nt declined [facility] [id number] Z30.9 [id number] ROYCE Black [facility] [address],[place] [address] 08/05/2022 14:49:36 08/05/2022 15:22:51 IUD check 688264493 Z30.431 (+) IUD strings seen on examHappy with Mirena IUDRTC in 1 year or sooner if needed Time spent in visit is a total of 15 mins with at least 50% of visit consisting of counseling and review of plan of care. [facility] [id number] Z30.9 [id number] [facility] [address] [address] 03/04/2024 16:21:31 03/04/2024 16:59:56 Gynecologic examination 91608213 Z01.419 Take Calcium with Vitamin D 1200mg [...] Labs PCP Removal of intrauterine contraceptive device [id number] Z30.432 It was explained that she may have bleeding or spotting after the removal of the device today as well. If cannot see the strings of this device we will need to get an US image to make that the device is still in place and not in an unobtainab le position. She expressed understand ing of all the above instructio ns. [id number] Keny Barone MD [facility] [address],[place] [address] 03/29/2024 14:13:24 03/29/2024 15:59:42 Screening procedure 63755607 Z13.9 Abnormal c ervical Papanicolaou smear 135515238 R87.619 colposcopy was performed. She tolerated well. It was normal. It was unsatisfac tory, no ECC performed due to . [id number] Keri Ricardo [facility] [address],[place] [address] 04/28/2024 14:41:45 04/28/2024 16:00:41 [id number] Keny Barone MD [facility] [address],[place] [address] 1 04/28/2024 14:42:05 04/28/2024 16:36:44 Amenorrhea 27473870 N91.2 this patient is a 34-year-ol d [...] begin routine care at her next visit. [id number] Precious [facility] [address],[place] [address] 06/04/2024 13:54:18 06/04/2024 14:45:28 screening [id number] Z36.82 Z3A.13 [id number] [facility] [address],[place] [address] 06/07/2024 10:55:41 06/08/2024 09:30:37 Gestation period, 13 weeks [id number] Z3A.13 Routine an tenatal care 698855515 Z3A.13 [id number] Keny Barone MD [facility] [address],[place] [address] 06/30/2024 12:14:52 06/30/2024 13:39:17 Routine care 213939825 Z34.80 [id number] Precious Montoya [facility] [address],[place] [address] 07/19/2024 10:16:52 07/19/2024 11:43:45 screening for malformation 299976328 Z36.3 Z3A.19 [id number] Keny Barone MD [facility] [address],[place] [address] 07/19/2024 10:17:20 07/19/2024 12:51:20 Routine care 209558656 Z34.80 [id number] Keny Barone MD [facility] [address],[place] [address] 08/12/2024 09:38:23 08/12/2024 10:17:19 Routine care 677134055 Z34.80 [id number] Keny Barone MD [facility] [address],[place] [address] 09/09/2024 09:35:09 09/09/2024 10:31:50 Routine care 186405206 Z34.80 [id number] Keny Barone MD [facility] [address],[place] [address] 09/24/2024 12:28:40 09/24/2024 13:36:26 Routine care 351610314 Z34.80 [id number] Keri Ricardo [facility] [address],[place] [address] 10/08/2024 11:48:06 10/08/2024 12:32:26 Uterine size for dates discrepancy 246815280 O26.843 Z03.74 Z3A.31 [id number] Keny Barone MD [facility] [address],[place] [address] 10/08/2024 11:48:20 10/08/2024 13:01:05 Routine care 557293978 Z34.80 [id number] Keny Barone MD [facility] [address],[place] [address] 10/22/2024 10:19:45 10/22/2024 11:21:55 section following previous section 295479087 O34.219 [id number] Keny Barone MD [facility] [address],[place] [address] 11/01/2024 09:39:59 11/01/2024 10:06:01 Routine care 257637560 Z34.[id number] [facility] [address],[place] [address] 11/15/2024 11:19:56 11/15/2024 12:06:08 Uterine size for dates discrepancy 278897240 O26.843 Z3A.36 [id number] Keny Barone MD [facility] [address],[place] [address] 11/15/2024 11:20:34 11/15/2024 13:14:24 Routine care 475082545 Z34.80 [id number] Keny Barone MD [facility] [address],[place] [address] 11/25/2024 11:16:16 11/25/2024 12:38:35 Routine care 877932994 Z34.80 [id number] Keny Barone MD [facility] [address],[place] [address] 12/02/2024 09:00:23 12/07/2024 03:52:41 [id number] Keny Barone MD [facility] [address],[place] [address] 12/09/2024 14:01:14 12/09/2024 14:49:36 Pre-eclampsia 492825581 O14.95 this patient is a 34-year-ol d female presents for postop follow-up. She is elevated blood pressures today her incision is clean dry intact. She agreed to monitor her blood pressures at home. We talked about [facility] for a couple of hours. We [...] Member ID Christianson Member ID Guarantor Name 11/15/2024 1 [facility] ON OR AFTER 03/22/21 (MEDICAID REPLACEMENT - HMO) Leoncio Lazaro [id number] Leoncio Lazaro 11/15/2024 1 [facility] OR AFTER 03/22/21 (MEDICAID REPLACEMENT - HMO) Leoncio Lazaro [id number] Leoncio Lazaro 11/25/2024 1 [facility] AFTER 03/22/21 (MEDICAID REPLACEMENT - HMO) Leoncio Lazaro [id number] Leoncio Lazaro 12/02/2024 1 [facility] AFTER 03/22/21 (MEDICAID REPLACEMENT - HMO) Leoncio Lazaro [id number] Leoncio Lazaro 12/09/2024 1 [facility] AFTER 03/22/21 (MEDICAID REPLACEMENT - HMO) Leoncio Lazaro [id number] Leoncio Lazaro Notes Date Note Type Note [...] management. Keny Barone MD [address], [place], [address], [place] [facility] 12/09/2024 14:48:34 OBGyn Episode Ob Episode Information Episode Created Date Number of Fetuses Patient Bloodtype Patient rh Status Prepregnancy Weight lbs Domestic Partner Domestic Partner Phone Father Name [employer] Man Status 02/25/20 20 1 CLOSED Fetus Data [...] Domestic Partner Domestic Partner Phone Father Name [employer] Man Status 06/07/20 24 1 B Positive 142 Calin Mcnair CLOSED Fetus Data First Name Last Name Admitted to NICU Weight (g) Sex Living Outcome Pediatric Complications Fetus ID Race Codes Race Delivery Type Areith false 3373.59 05 F true Full Term weight loss 38217 Repeat Problems Problem Notes Problem Name Start Date End Date Resolution Snomed Code Not e Female sterilization 25443765 Considering Salpingectomy Varicose veins in [id number] suprapubic Heartburn 92442703 Asthma 367607934 Past history of section 667568589 NRFHR, failure to progress, TO REPEAT Ryder Calculation Initial Ryder Date Initial Exam Date Initial Exam Provider Initial Ultrasound Date Last Menstrual Period Date Ultra Sound Weeks Gestation 12/09/2024 04/28/2024 Debora Franklin 04/28/2024 03/04/2024 7 Eighteen To Twenty Week [...] Weight in lbs Pre/Post Dialysis Refused Weight 143.276351549509 BP Diastolic BP Location Tested BP Systolic BP Type 87 131 Fetus Heart Rate Present Fetus Movement A Yes Comments Patient states that is giovanny hanna some nausea, vomiting, declines medication, reviewed US and plan anatomy at 20 weeks, planning rpt , begin routine care. see dr barone in 3 weeks Flowsheet Date 06/30/2024 Palacio Score Blood Edema Fundus Height Fundus Units Glucose Ketones Leukocytes Nitrite Labor Signs Protein Cervic Dilation Cervic Effacement Cervic Station 156 cm none trace Type Weight in lbs Pre/Post Dialysis Refused 147.573280244316 BP Diastolic BP Location Tested BP Systolic [...] Type Weight in lbs Pre/Post Dialysis Refused 150.625506619771 BP Diastolic BP Location Tested BP Systolic [...] Type Weight in lbs Pre/Post Dialysis Refused 159.473830261452 BP Diastolic BP Location Tested BP Systolic [...] Type Weight in lbs Pre/Post Dialysis Refused 168.469306016976 BP Diastolic BP Location Tested BP Systolic [...] Type Weight in lbs Pre/Post Dialysis Refused 170.219826681950 BP Diastolic BP Location Tested BP Systolic [...] Weight in lbs Pre/Post Dialysis Refused Weight 173.299636863462 BP Diastolic BP Location Tested BP Systolic [...] Type Weight in lbs Pre/Post Dialysis Refused 177.187081237614 BP Diastolic BP Location Tested BP Systolic [...] Weight in lbs Pre/Post Dialysis Refused Weight 176.150473587794 BP Diastolic BP Location Tested BP Systolic [...] Type Weight in lbs Pre/Post Dialysis Refused 182.876702562497 BP Diastolic BP Location Tested BP Systolic [...] Weight in lbs Pre/Post Dialysis Refused Weight 184.620037550446 BP Diastolic BP Location Tested BP Systolic [...] Weight in lbs Pre/Post Dialysis Refused Weight 176.245955262469 BP Diastolic BP Location Tested BP Systolic [...]
[2024-12-09 20:54] LABS: Basophils Percent Auto 0.3 % (0.2-1.2); Eosinophils Absolute Auto 0.3 K/mm3 (0-0.3); Eosinophils Percent Auto 2.6 % (0-4.4); Hematocrit 30.8 % (37.0-47.0); Hemoglobin 10.2 g/dL (12.0-15.0); Immature Granulocyte Absolute 0.18 K/mm3 (0.00-0.031); Immature Granulocyte Percent A 1.8 % (0-0.5); Lymphocytes Absolute Auto 3.46 K/mm3 (0.9-3.2); Lymphocytes Percent Auto 35.5 % (18.3-44.2); Mean Corpuscular HGB Conc 33.1 g/dl (32-36); Mean Corpuscular Hemoglobin 30.8 pg (26-34); Mean Corpuscular Volume 93.1 fl (80-100); Mean Platelet Volume 9.5 fl (7.4-10.4); Monocytes Absolute Auto 0.6 K/mm3 (0.1-0.6); Monocytes Percent Auto 6.5 % (2.6-8.5); Neutrophils Absolute Auto 5.2 K/mm3 (1.3-6.7); Neutrophils Percent Auto 53.3 % (45.5-73.1); Platelet Count Result 303 k/mm3 (150-375); Red Blood Count 3.31 M/mm3 (4.2-5.4); Red Cell Distribution Width 12.3 % (11.5-14.5); White Blood Count 9.7 K/mm3 (4.5-10.0)
[2024-12-09 21:03] LABS: Alanine Aminotransferase 36 U/L (6-35); Alkaline Phosphatase 153 U/L (38-126); Anion Gap 6 mmol/L (4-12); Aspartate Amino Transferase 24 U/L (14-36); Bilirubin,Total < 0.1 mg/dL (0.2-1.3); Blood Urea Nitrogen 11 mg/dL (7-17); Calcium 8.6 mg/dL (8.4-10.2); Carbon Dioxide 23 mmol/L (22-30); Chloride 109 mmol/L (98-107); Estimated Glomerular Filt Rate > 60; Glucose 88 mg/dL (65-110); Potassium 3.9 mmol/L (3.4-5.0); Sodium 138 mmol/L (137-145); Uric Acid 6.5 mg/dL (2.5-7.5)
--- NOTE | 2024-12-09 21:19 | PC.NURSE ---
Called Dr. Smith, update on pt, elevated blood pressure at home, labs, and blood pressure on admission. Orders received to administer labetalol 200 mg, prescription for labetalol 200 mg BID for 30 days, instructions to call the office and make appointment for next week, and when to return to the unit.
[2024-12-09] MEDS: LABETALOL HCL 100 MG TABLET 200 MG PO (21:45)
--- NOTE | 2024-12-09 21:48 | PC.NURSE ---
Pt discharged with a prescription for labetalol 200 mg BID for 30 days, instructions to keep next scheduled appointment, and when to return to the unit, pt verbalizes understanding.
== END 2024-12-09 21:48 | disposition home or self-care (01) ==
LOC: ANHOBOP 20:18 → ANHOBPP 20:20
PROVIDERS: PCP Family Medicine; Visit Provider Obstetrics & Gynecology
DX: O13.5 Gestational [pregnancy-induced] hypertension without significant proteinuria, complicating the puerperium (principal)
CPT/HCPCS: 36415; 80053; 84550; 85025; 99199; A9270

== ENCOUNTER 2024-12-20 12:50 | Emergency (ER) | payer OTHER, SELFPAY ==
[2024-12-20] VITALS (17 sets, daily range): BP systolic 100–140; BP diastolic 69–100; PULSE 55–90; RESP 13–21; TEMP 36.7; O2SAT 91–99
--- NOTE | ~2024-12-20 | CT_ITS ---
EXAMINATION: CT brain wo con DATE: 12/20/2024 13:45 INDICATION: Syncopal episode with loss of consciousness TECHNIQUE: Computed tomography (CT) of the head was performed without intravenous contrast. Sagittal and coronal reconstructions were performed. The mA was adjusted according to patient size. Iterative reconstruction technique was employed. The dose-length product was 605.33 mGy-cm. COMPARISON: None FINDINGS: No acute intracranial hemorrhage, acute infarction or abnormal extra axial fluid collection. Ventricl es are normal and symmetric. No mass/mass effect. The orbits, paranasal sinuses and mastoid air cells are normal. IMPRESSION: 1. Normal head CT. Reviewed, dictated and finalized at location B. IMPRESSION: 1. Normal head CT.
[2024-12-20 13:01] LABS: Glucose Point of Care 96 mg/dl (65-105)
--- NOTE | 2024-12-20 13:05 | ECG_ITS ---
Test Date: 2024-12-20 13:14:40 Measurements Intervals [place] Rate: 79 P: 67 [place]: 147 QRS: 68 QRSD: 90 T: 54 QT: 371 QTc: 426 Interpretive Statements SINUS RHYTHM NORMAL ECG Electronically Signed On 12-20-2024 14:07:26 CDT by Gary Turner M.D.
[2024-12-20 13:23] LABS: Basophils Absolute Auto 0.1 K/mm3 (0.0-0.1); Basophils Percent Auto 1.1 % (0.2-1.2); Eosinophils Absolute Auto 0.1 K/mm3 (0-0.3); Eosinophils Percent Auto 2.3 % (0-4.4); Hematocrit 42.3 % (37.0-47.0); Hemoglobin 14.1 g/dL (12.0-15.0); Immature Granulocyte Absolute 0.01 K/mm3 (0.00-0.031); Immature Granulocyte Percent A 0.2 % (0-0.5); Lymphocytes Absolute Auto 2.37 K/mm3 (0.9-3.2); Lymphocytes Percent Auto 38.6 % (18.3-44.2); Mean Corpuscular HGB Conc 33.3 g/dl (32-36); Mean Corpuscular Hemoglobin 30.7 pg (26-34); Mean Corpuscular Volume 92.2 fl (80-100); Monocytes Absolute Auto 0.2 K/mm3 (0.1-0.6); Monocytes Percent Auto 3.4 % (2.6-8.5); Neutrophils Absolute Auto 3.3 K/mm3 (1.3-6.7); Neutrophils Percent Auto 54.4 % (45.5-73.1); Platelet Count Result 427 k/mm3 (150-375); Red Blood Count 4.59 M/mm3 (4.2-5.4); Red Cell Distribution Width 12.4 % (11.5-14.5); White Blood Count 6.1 K/mm3 (4.5-10.0)
[2024-12-20 13:40] LABS: Prothrombin Time 13.2 Seconds (11.1-14.7)
[2024-12-20 13:41] LABS: Partial Thromboplastin Time 24.6 Seconds (22.3-36.8)
--- NOTE | 2024-12-20 13:41 | ED_ITS ---
HPI - Syncope General Chief Complaint: Syncope <Geovanna Wang APRN - Last Filed: 12/20/24 13:45> Stated Complaint: syncopal episode today with seizure like activity <Geovanna Wang APRN - Last Filed: 12/20/24 13:45> Time Seen by Provider: 12/20/24 13:15 <Geovanna Wang APRN - Last Filed: 12/20/24 13:45> Focused HPI: Patient's is a 34-year-old female who presents to the ER following a syncopal episode. She reports she is 18 days and had a . Patient reports she developed hypertension during the and was started on labetalol. She reports she went in for a follow-up appointment with OBGYN in her blood pressure was 170 so they doubled her labetalol dose. Patient endorses intermittent lightheadedness since the increased dose. This morning she reports she set her baby down in the crib, felt lightheaded, started to lower herself to the ground but had a syncopal episode. Patient reports she lost consciousness and hit her head on the floor. GENERAL: Well-appearing, well-nourished, and in no acute distress. HEAD: Normocephalic, atraumatic. CHEST: Clear to auscultation. ?No respiratory distress. HEART: Regular rate and rhythm.? NEURO: ?Alert and oriented x3. Patient screened in triage and initial orders placed.? ?Additional care and disposition to be based upon?diagnostic testing and treatment. <Geovanna Wang APRN - Last Filed: 12/20/24 13:45> History of Present Illness HPI narrative: Pre with HPI. Poor food intake today but has been drinking water. Presyncopal episode but had some jerking that they were concerned may be seizures. No tongue biting or loss of bladder. Blood pressure low at this time. <Rey Hernandez MD - Last Filed: 12/20/24 18:38> Related Data Home Medications: Home Medications ?Medication ?Instructions ?Recorded ?Confirmed ?Last Taken ?Type albuterol sulfate 90 mcg/actuation inhalation 11/11/24 Unknown History aerosol inhaler famotidine 10 mg tablet (Acid 10 mg PO DAILY 11/11/24 12/02/2425 20:00 History Controller) vitamin#30 30 mg iron-10 cap PO DAILY 11/11/24 12/09/24 07:00 History mg iron-folic acid 1 mg-omg3 1 cap capsule <Geovanna Wang APRN - Last Filed: 12/20/24 13:45> Allergies/Adverse Reactions: Allergies Allergy/AdvReac Type Severity Reaction Status Date / Time amoxicillin Allergy Intermediate SWELLING Verified 12/20/24 12:52 metronidazole Allergy Intermediate SWELLING Verified 12/20/24 12:52 bee pollen Allergy Mild Swelling Verified 12/20/24 12:52 Penicillins Allergy Mild SWELLING Verified 12/20/24 12:52 codeine Allergy Itching Verified 12/20/24 12:52 <Geovanna Wang APRN - Last Filed: 12/20/24 13:45> Review of Systems 2 Review of Systems: All systems reviewed & are unremarkable except as noted in HPI and below <Rey Hernandez MD - Last Filed: 12/20/24 18:38> Constitutional: Constitutional: Reports no additional constitutional complaints <Rey Hernandez MD - Last Filed: 12/20/24 18:38> Cardiovascular: Cardiovascular: Reports no additional cardiovascular complaints <Rey Hernandez MD - Last Filed: 12/20/24 18:38> Respiratory: Respiratory: Reports no additional respiratory complaints < Rey Hernandez MD - Last Filed: 12/20/24 18:38> Gastrointestinal: Gastrointestinal: Reports no additional gastrointestinal complaints <Rey Hernandez MD - Last Filed: 12/20/24 18:38> Genitourinary: Genitourinary: Reports no additional female genitourinary complaints <Rey Hernandez MD - Last Filed: 12/20/24 18:38> Neurologic: Reports system reviewed and no additional complaints, except as documented <Rey Hernandez MD - Last Filed: 12/20/24 18:38> PMFSH Past Medical History Medical History: Medical History Patient denies medical problems <Geovanna Wang APRN - Last Filed: 12/20/24 13:45> Social History Social History: Social History Smoking status: Current every day smoker Tobacco type: e-cigarettes/vaping Second hand tobacco smoke exposure: Yes Additional smoking assessment comments: pt. states shes vapes once a day Substance use: never Substance use type: marijuana Do You Feel Safe in your Home?: Yes Lack of Transportation: No Lack of Food: Never True Current Housing: I Have Housing Concerned About Future Housing: No Difficulty Paying Gas/Electric Bills: No Difficulty Paying for Meds: No Currently Unemployed: No Education: High School Diploma/GED Difficulty w/ Childcare or Family Care: No Gender identity (if verbalized by the patient): Female Spiritual care concerns: No <Geovanna Wang APRN - Last Filed: 12/20/24 13:45> Exam 2 Narrative: GENERAL: Well-appearing, well-nourished, and in no acute distress. HEAD: Normocephalic, atraumatic. EYES: PERRL and EOMI. ENT: Mucous membranes moist. CHEST: Clear to auscultation. No respiratory distress. HEART: Bradycardic regular. Normal peripheral pulses. ABDOMEN: Soft, nontender, nondistended. EXTREMITIES: Normal range of motion. No edema. SKIN: Warm, dry, no rash. NEURO: Alert and oriented x3. PSYCH: Normal mood and affect. <Rey Hernandez MD - Last Filed: 12/20/24 18:38> Course Course Emergency Course: Blood pressure improved with IV fluid. Abnormal urinalysis. Discharge with Macrobid. Discussed with OB in recommend having the labetalol does patient verbalized understanding this plan. She should follow up this week. <Rey Hernandez MD - Last Filed: 12/20/24 18:38> Vital Signs Vital signs: Vital Signs Temperature 98.0 F 12/20/24 12:54 Pulse Rate 73 12/20/24 12:54 Respiratory Rate 16 12/20/24 12:54 Blood Pressure 110/79 12/20/24 12:54 Pulse Oximetry 98 12/20/24 12:54 Oxygen Delivery Room Air 12/20/24 12:54 Temperature 98.0 F 12/20/24 12:54 Pulse Rate 55 L 12/20/24 18:01 Respiratory Rate 18 12/20/24 18:01 Blood Pressure 140/100 H 12/20/24 18:01 Pulse Oximetry 99 12/20/24 18:01 Oxygen Delivery Room Air 12/20/24 14:55 <Geovanna Wang APRN - Last Filed: 12/20/24 13:45> Vital Signs Temperature 98.0 F 12/20/24 12:54 Pulse Rate 73 12/20/24 12:54 Respiratory Rate 16 12/20/24 12:54 Blood Pressure 110/79 12/20/24 12:54 Pulse Oximetry 98 12/20/24 12:54 Oxygen Delivery Room Air 12/20/24 12:54 Temperature 98.0 F 12/20/24 12:54 Pulse Rate 55 L 12/20/24 18:01 Respiratory Rate 18 12/20/24 18:01 Blood Pressure 140/100 H 12/20/24 18:01 Pulse Oximetry 99 12/20/24 18:01 Oxygen Delivery Room Air 12/20/24 14:55 <Rey Hernandez MD - Last Filed: 12/20/24 18:38> MDM - Syncope Lab Data Result diagrams: 12/20/24 13:15 12/20/24 13:15 <Geovanna Wang APRN - Last Filed: 12/20/24 13:45> Labs: Lab Results 12/20/24 12/20/24 12/20/24 Range/Units 12:58 13:15 15:02 WBC 6.1 (4.5-10.0) K/mm3 RBC 4.59 (4.2-5.4) M/mm3 Hgb 14.1 D (12.0-15.0) g/dL Hct 42.3 (37.0-47.0) % MCV 92.2 (80-100) fl MCH 30.7 (26-34) pg MCHC 33.3 (32-36) g/dl RDW 12.4 (11.5-14.5) % Plt Count 427 H (150-375) k/mm3 MPV 9.0 (7.4-10.4) fl Immature Gran % (Auto) 0.2 (0-0.5) % Neut % (Auto) 54.4 (45.5-73.1) % Lymph % (Auto) 38.6 (18.3-44.2) % Jennings % (Auto) 3.4 (2.6-8.5) % Eos % (Auto) 2.3 (0-4.4) % Baso % (Auto) 1.1 (0.2-1.2) % Lymph # (Auto) 2.37 (0.9-3.2) K/mm3 Jennings # (Auto) 0.2 (0.1-0.6) K/mm3 Eos # (Auto) 0.1 (0-0.3) K/mm3 Baso # (Auto) 0.1 (0.0-0.1) K/mm3 Abs Immat Gran (auto) 0.01 (0.00-0.031) K/mm3 Absolute Neuts (auto) 3.3 (1.3-6.7) K/mm3 Absolute Nucleated RBC 0.000 (0.0-0.012) K/mm3 Nucleated RBC % 0.0 (0.0-0.2) % PT 13.2 (11.1-14.7) Seconds INR 1.0 APTT 24.6 (22.3-36.8) Seconds Sodium 137 (137-145) mmol/L Potassium 4.8 (3.4-5.0) mmol/L Chloride 103 (98-107) mmol/L Carbon Dioxide 22 (22-30) mmol/L Anion Gap 12 (4-12) mmol/L BUN 14 (7-17) mg/dL Creatinine 0.92 (0.7-1.0) mg/dL Estim Creat Clear Calc 76 ml/min Estimated GFR > 60 (59 - ) Glucose 110 (65-110) mg/dL POC Capillary Glucose 96 (65-105) mg/dl Calcium 9.7 (8.4-10.2) mg/dL Total Bilirubin 0.8 (0.2-1.3) mg/dL AST 30 (14-36) U/L ALT 39 H (6-35) U/L Alkaline Phosphatase 130 H (38-126) U/L Troponin I < 0.012 (0.000-0.034) ng/mL Total Protein 8.0 (6.3-8.2) g/dL Albumin 4.4 (3.5-5.1) g/dL TSH 0.642 (0.465-4.680) uIU/mL Urine Color Yellow (Yellow) Urine Appearance Clear (Clear) Urine pH 5.5 (5.0-9.0) Ur Specific [place] 1.011 (1.001-1.035) Urine Protein Negative (Negative) mg/dL Urine Glucose (UA) Negative (Negative) mg/dL Urine Ketones Negative (Negative) mg/dL Ur Blood (Man) 2+ H (Negative) Urine Nitrate Negative (Negative) Urine Bilirubin Negative (Negative) Urine Urobilinogen 0.2 (<2.0) mg/dL Leukocyte Esterase Rfl 2+ H (Negative) ERASMO/UL Urine RBC 0-2 (0-2) /hpf Urine WBC 21-50 H (0-3) /hpf Ur Squamous Epith Cells None seen (Few) /hpf Urine Bacteria Rare /hpf Urine Casts 0-2 <Geovanna Wang, MINING SUPPORT WORKER - Last Filed: 12/20/24 13:45> Lab Results 12/20/24 12/20/24 12/20/24 Range/Units 12:58 13:15 15:02 WBC 6.1 (4.5-10.0) K/mm3 RBC 4.59 (4.2-5.4) M/mm3 Hgb 14.1 D (12.0-15.0) g/dL Hct 42.3 (37.0-47.0) % MCV 92.2 (80-100) fl MCH 30.7 (26-34) pg MCHC 33.3 (32-36) g/dl RDW 12.4 (11.5-14.5) % Plt Count 427 H (150-375) k/mm3 MPV 9.0 (7.4-10.4) fl Immature Gran % (Auto) 0.2 (0-0.5) % Neut % (Auto) 54.4 (45.5-73.1) % Lymph % (Auto) 38.6 (18.3-44.2) % Jennings % (Auto) 3.4 (2.6-8.5) % Eos % (Auto) 2.3 (0-4.4) % Baso % (Auto) 1.1 (0.2-1.2) % Lymph # (Auto) 2.37 (0.9-3.2) K/mm3 Jennings # (Auto) 0.2 (0.1-0.6) K/mm3 Eos # (Auto) 0.1 (0-0.3) K/mm3 Baso # (Auto) 0.1 (0.0-0.1) K/mm3 Abs Immat Gran (auto) 0.01 (0.00-0.031) K/mm3 Absolute Neuts (auto) 3.3 (1.3-6.7) K/mm3 Absolute Nucleated RBC 0.000 (0.0-0.012) K/mm3 Nucleated RBC % 0.0 (0.0-0.2) % PT 13.2 (11.1-14.7) Seconds INR 1.0 APTT 24.6 (22.3-36.8) Seconds Sodium 137 (137-145) mmol/L Potassium 4.8 (3.4-5.0) mmol/L Chloride 103 (98-107) mmol/L Carbon Dioxide 22 (22-30) mmol/L Anion Gap 12 (4-12) mmol/L BUN 14 (7-17) mg/dL Creatinine 0.92 (0.7-1.0) mg/dL Estim Creat Clear Calc 76 ml/min Estimated GFR > 60 (59 - ) Glucose 110 (65-110) mg/dL POC Capillary Glucose 96 (65-105) mg/dl Calcium 9.7 (8.4-10.2) mg/dL Total Bilirubin 0.8 (0.2-1.3) mg/dL AST 30 (14-36) U/L ALT 39 H (6-35) U/L Alkaline Phosphatase 130 H (38-126) U/L Troponin I < 0.012 (0.000-0.034) ng/mL Total Protein 8.0 (6.3-8.2) g/dL Albumin 4.4 (3.5-5.1) g/dL TSH 0.642 (0.465-4.680) uIU/mL Urine Color Yellow (Yellow) Urine Appearance Clear (Clear) Urine pH 5.5 (5.0-9.0) Ur Specific [place] 1.011 (1.001-1.035) Urine Protein Negative (Negative) mg/dL Urine Glucose (UA) Negative (Negative) mg/dL Urine Ketones Negative (Negative) mg/dL Ur Blood (Man) 2+ H (Negative) Urine Nitrate Negative (Negative) Urine Bilirubin Negative (Negative) Urine Urobilinogen 0.2 (<2.0) mg/dL Leukocyte Esterase Rfl 2+ H (Negative) ERASMO/UL Urine RBC 0-2 (0-2) /hpf Urine WBC 21-50 H (0-3) /hpf Ur Squamous Epith Cells None seen (Few) /hpf Urine Bacteria Rare /hpf Urine Casts 0-2 <Rey Hernandez MD - Last Filed: 12/20/24 18:38> Imaging Data Radiologist's impression: ITS Impressions Head CT 12/20/24 13:47 IMPRESSION: 1. Normal head CT. <Rey Hernandez MD - Last Filed: 12/20/24 18:38> ECG Data EKG #1: ECG completion date: 12/20/24 <Rey Hernandez MD - Last Filed: 12/20/24 18:38> ECG completion time: 13:14 <Rey Hernandez MD - Last Filed: 12/20/24 18:38> EKG Interpretation: normal rate (79), sinus rhythm, no ectopy, no ST changes, normal QRS, normal QT and NL axis <Rey Hernandez MD - Last Filed: 12/20/24 18:38> Discharge Plan Discharge Clinical Impression: Syncope, UTI (urinary tract infection) <Geovanna Wang APRN - Last Filed: 12/20/24 13:45> Patient Disposition: Home, Self-Care <Geovanna Wang APRN - Last Filed: 12/20/24 13:45> Condition: Stable <Geovanna Wang APRN - Last Filed: 12/20/24 13:45> Instructions: Urinary Tract Infection in Women (ED), Syncope (ED) <Geovanna Wang APRN - Last Filed: 12/20/24 13:45> Additional Instructions: You should return to the emergency department if you develop severe nausea and vomiting and are unable to keep liquids down, if you develop severe back/flank or stomach pain, or if your symptoms are not clearly improving at home. Additional return if you have focal weakness in arm or leg, you have recurrent loss of consciousness, or you have additional concerns. Decrease you labetalol to 200mg twice a day. <Geovanna Wang APRN - Last Filed: 12/20/24 13:45> Patient Language: Northern Irish <Geovanna Wang APRN - Last Filed: 12/20/24 13:45> Prescriptions: No Action labetalol 200 mg tablet 200 mg PO Q12H 30 Days Qty: 60 0RF albuterol sulfate 90 mcg/actuation HFA aerosol inhaler INHALATION PNV #[id number] 30 mg iron-10 mg iron-1 mg capsule PO DAILY famotidine [Acid Controller] 10 mg tablet 10 mg PO DAILY hydrocodone-acetaminophen 5-325 mg tablet 1 - 2 tablet PO Q6H PRN (Reason: pain) Qty: 25 0RF <Geovanna Wang APRN - Last Filed: 12/20/24 13:45> Follow-up/Referrals: Keny Smith MD [Physician] - 3 Days Handley,Selin Santillan MD [Primary Care Provider] - <Geovanna Wang APRN - Last Filed: 12/20/24 13:45>
[2024-12-20 13:48] LABS: Alanine Aminotransferase 39 U/L (6-35); Albumin Level 4.4 g/dL (3.5-5.1); Alkaline Phosphatase 130 U/L (38-126); Anion Gap 12 mmol/L (4-12); Aspartate Amino Transferase 30 U/L (14-36); Bilirubin,Total 0.8 mg/dL (0.2-1.3); Blood Urea Nitrogen 14 mg/dL (7-17); Calcium 9.7 mg/dL (8.4-10.2); Carbon Dioxide 22 mmol/L (22-30); Chloride 103 mmol/L (98-107); Estimated CRCL calculation 76 ml/min; Estimated Glomerular Filt Rate > 60; Glucose 110 mg/dL (65-110); Potassium 4.8 mmol/L (3.4-5.0); Sodium 137 mmol/L (137-145)
[2024-12-20 14:00] LABS: Troponin I < 0.012 ng/mL (0.000-0.034)
--- OUTSIDE RECORDS SUMMARY | 2024-12-20 14:05 | XMS_ITS | Data Portability ---
Author Organization [facility] Winsome Magdaleno Address [address] [place] [address] Care Team Providers Care Records Custodian Name Role Phone SANATERRY Primary Care Provider EULA CARDOSO Primary Care Provider Unavailabl e Assessment Encounter Date Assessment Date Assessment LastModified by Organization Details LastModified Time 04/10/2022 04/10/2022 20 lbb weight loss in 2 years Not available 04/10/2022 14:31:07 Plan of Treatment Reminders Order Date Submit Date Provider Last Modified By Organization Details Last Modified Time Details Appointments None recorded. Lab None recorded. Referral floor refinisher & immunologis t referral 2022 023 ced Geller, [address] [facility], [place], [address], 3 11:39:28 ophthalmolo gist referral 2022 023 Anne Cespedes MD, [address] [place], [address], 3 14:04:08 general surgeon referral 2021 022 ced Rivas MD, [address] [facility] [address], [address], [place], [address], 2 12:04:41 Procedures None recorded. Surgeries None recorded. Imaging None recorded. Medication Orders dicyclomine 10 mg capsule 2022 023 [email or web address] [facility], [address] [place], [address], 3 17:09:07 ondansetron HCl 4 mg tablet 2022 023 JOSE ALBERTO [facility], [address] [place], [address], 3 16:11:58 albuterol sulfate HFA 90 mcg/actuati on aerosol inhaler 2022 023 JOSE ALBERTO [facility] [facility], [address] [place], [address], 3 16:17:23 Maxitrol 3.5 mg/mL-10,00 0 unit/mL-0.1 % eye drops,suspe nsion 2022 023 [email or web address] [facility] [address], [address], 3 16:05:00 Zithromax Z-[place] 250 mg tablet 2020 021 trossma [facility] [address], [address], 2 14:11:02 ofloxacin 0.3 % ear drops 2020 021 [email or web address] [facility] [address], [address], 14:14:41 Patient TargetsNo targets recorded. Patient Instructions Encounter Date Encounter Id Patient Instructions Last Modified By Organization Details Last Modified Time 12/19/2020 [id number] ear infection (otitis media): care instructions Not available 12/20/2020 07:44:51 Reason for Referral General Surgeon Referral for Hemorrhoids Referring Physician: Terry Dueñas, Floor Winder, Encounter Date: 04/10/2022 Instructional Technology Facilitator & Junior Project Manager Ref erral for Allergic rhinitis allergies not responsive PO meds Referring Physician: Alona Holden [facility], Encounter Date: 11/27/2022 Rn Case Manager Referral for Hordeolum internum of upper eyelid of right eye Referring Physician: Alona Holden [facility], Encounter Date: 11/27/2022 Problems Name Problem SNOMED Code Status Onset Date Resolution Date Notes Provider Name and Address Organization Details Recorded Time Hemorrhoids 35056975 Active 2021 AYAZ WAGNER Attn: Zeny g,[address], [place], [address], [facility] 2 14:43:09 Elevated blood-pressure reading without diagnosis of hypertension 402804074 Active 2021 AYAZ WAGNER Attn: Accountin g,[address], [place], [address], [facility] 2 14:43:10 Problem Notes None recorded. Procedures Surgical History Date Name Laterality Status Provider Name and Address Organization Details Recorded Time 03/22/2020 Date of Last Pap Smear completed Tracee Toro MA [facility] 06/05/2020 10:54:54 Imaging Results None recorded. Procedure Notes None recorded. Medical Equipment None Reported. Allergies Allergen ID Allergen Name Allergen Category Reaction Reaction Severity Criticality Documentation Date Start Date Code Code System Note Provider Name and Address Organization Details Recorded Time 853337 Product containin g penicilli n (product) medicatio n abdominal pain Not available Not available 11/19/2019 65309 8001 SNOMED Not Available Not Available Not Available 032971 amoxicill in medicatio n cough Not available Not available 11/19/2019 723 RxNorm Not Available Not Available Not Available 450398 codeine medicatio n itching Not available Not [...] and Address Organization Details Last Updated DateTime 95 /min 98.5 [degF] 83618.0 3 g 21.9 kg/m2 162.56 cm 16 /min 99 % 99 % 122 mm[Hg] 88 mm[Hg] Boyd Ho MA [facility] 2 14:09:31 Date Recorded Body height Body mass index (BMI) Body weight Oxygen saturation Oxygen saturation in Arterial blood by Pulse oximetry Heart rate Respiratory rate Body temperature Systolic blood pressure Diastolic blood pressure Provider Name and Address Organization Details Last Updated DateTime 3 162.56 cm 21.5 kg/m2 90795.5 g 97 % 97 % 82 /min 16 /min 98 [degF] 124 mm[Hg] 78 mm[Hg] Ita Brenner CMA [facility] 3 12:33:13 Date Recorded Body height Body temperature Heart rate Systolic blood pressure Diastolic blood pressure Provider Name and Address Organization Details Last Updated DateTime 01/01/2023 162.56 cm 97.1 [degF] 88 /min 143 mm[Hg] 95 mm[Hg] Tracee Heavenly [facility] 3 14:09:28 Date Recorded Body height Body mass index (BMI) Body weight Oxygen saturation Oxygen saturation in Arterial blood by Pulse oximetry Heart rate Respiratory rate Body temperature Systolic blood pressure Diastolic blood pressure Provider Name and Address Organization Details Last Updated DateTime 3 162.56 cm 22.4 kg/m2 05411.1 1 g 98 % 98 % 83 /min 16 /min 98.1 [degF] 116 mm[Hg] 83 mm[Hg] Ita Brenner CMA [facility] 3 16:04:05 Social History Question Answer Notes LastModified by Organizat ion Details LastModified Time Tobacco Smoking Status Never Smoker Óscar Kraus MA [facility], [facility] 11/19/2019 11:30:26 Do You Have An Advance [...] Do You Have A Medical Power Of Mangle Roller? No Information not available 01/01/2023 What Was [...] Atrial Fibrillation N High Blood Pressure N Depression N COPD N Blood Clots N Anxiety Disorder N Muscle, Joint, or Bone Problems N Acid Reflux (GERD) N Cancer N Stroke N High Cholesterol N Liver Disease N Headaches N Kidney or Bladder Problems N Thyroid Problems N GI Problems N Skin Problems N Anemia N Heart Attack ([place]) N Diabetes N Seizures/Epilepsy N Asthma Y Allergies N Hepatitis N Heart Failure N Osteoporosis N Gynecological [...] SNOMED-CT Code Diagnosis ICD10 Code Diagnosis Note [id number] AYAZ WAGNER [facility] [address] [place] [address] 11/19/2019 11:03:36 11/19/2019 16:25:49 Upper respiratory infection 88549388 J06.9 5 days of URI. No fever or chills right now. tested negative for flu/strep at [facility] on friday. On exam patient has mild cough. TM clear. Lungs clear. afebrile. - tea, soup, honey for throat- may take robitussin for cough, she is breast feeding and I advised not taking if not needed- f/u if worsening or not improving in the next 72 hours- wash hands to avoid spread of germs [id number] AYAZ WAGNER [facility] [address] [place] [address] 06/05/2020 10:51:15 06/07/2020 13:05:43 Right upper quadrant pain 978461322 R10.11 Patient presents for problems with my gallbladde r x yearspain worse with eating, lasts a few hours and happens frequently . some blood in stool but states due to hemorrhoid s. Denies fever, chills, jaundice, sob, cp, black/dark stools. - labs- US gallbladde r- may need PPI tx and EGD- ER if jaundice , fever, chills [id number] AYAZ WAGNER [facility] [address] [place] [address] 07/20/2020 11:54:02 07/21/2020 08:48:26 Infection of skin 650409194 L08.9 patient toe is draining, swollen, painful. Denies streak going up leg, fever, chills. doxycyclin e due to allergy with penicillin . Ingrowing toenail 246426 009 L60.0 Patient has been struggling with ingrown toenail for a few months. Recently has gotten infected and is draining puss, red, and painful. Will treat with doxy and she swells up with penicillin and has never tried cephalospo rin. After patient finishes antibiotic she is to f/u with tie buyer . [id number] SREEDHAR HINOJOSA [facility] [address] [place] [address] 08/02/2020 14:02:38 08/02/2020 17:10:17 Ingrowing nail 704542330 L60.0 [id number] SREEDHAR [facility]INOJOSA [facility] [address] [place] [address] 08/23/2020 14:19:37 09/04/2020 09:32:24 Ingrowing nail 167118734 L60.0 [id number] SREEDHAR HINOJOSA [facility] [address] [place] [address] 09/06/2020 13:53:51 09/07/2020 12:18:48 Ingrowing nail 027033911 L60.0 [id number] AYAZ WAGNER [facility] [address] [place] [address] 12/12/2020 08:04:37 12/12/2020 11:12:04 Seasonal allergic rhinitis 678112212 J30.2 patient with season allergies states vicks spay, benadryl and anaya are not helping much. will change to claritin and flonase for symptom relief. COVID test as she also lost smell/tast e, developed diarrhea and aunt has similar symptoms. Exposure t o SARS-CoV-2 984812942 Z20.822 loss of smell and taste, diarrhea. D/w pt the current pandemic of COVID-19 and call for social isolation in order to blunt the curve and minimize risk and spread. Encouraged patient and family to take restrictio ns seriously. They have verbalized understand ing of such. [id number] AYAZ WAGNER [facility] [address] [place] [address] 12/19/2020 08:07:39 12/20/2020 13:09:11 Acute left otitis media 418595859 H66.92 - zpack due to allergy and ear drops due to ear drainage - avoid qtips in ears - Tylenolfor pain - f.u if not improving [id number] AYAZ WAGNER [facility] [address] [place] [address] 04/10/2022 13:37:28 04/11/2022 09:50:04 Elevated blood-pressure reading without diagnosis of hypertension 426121671 R03.0 122/88 today. Was taken off estroen OCP and palced on POP. She is to moniot and write down BP this week and send me on portal. Dad at 53 from cardiac related issues. - she is eating healthy diet- drinks mainly water- she is excercisin g Hemorrhoids 20992382 K64 .9 internal hemorrhoid . creams have not worked. Anxiety 23075714 F41.9 Patient reports some anxiety. Managing well with excercise, healthy diet, mediation, spening time with famnily and sleeping well. will moniot. list of counselors given to patient to call and schedule therapy. Ultraviole t-induced skin pigmentation - tanning 167530958 L56.8 advised not to tidwell, wear sunscreen outside [id number] AYAZ MOORE [facility] [address] [place] [address] 11/27/2022 12:13:40 11/27/2022 14:24:13 Hordeolum internum of upper eyelid of right eye 2513053957 39595 H00.021 x1 yrpt showed provider picture of stye yesterday to R upper inner eyelidnone visible on exam todayPEx- nlrefer to eye dr Allergic rhinitis 398290 04 J30.9 c/o rhinorrhea has tried anaya, claritin and zyrtec w/o reliefrefe r to floor refinisher Depression screening 171 557504 Z13.31 PHQ 0 [id number] Anne Cespedes MD [facility] [address] [place] [address] 01/01/2023 13:57:37 01/02/2023 12:37:14 Chalazion of right upper eyelid 5469227613 12807 H00.11 [id number] AYAZ MOORE [facility] [address] [place] [address] 05/20/2023 15:54:41 05/22/2023 11:57:14 Nausea 410876382 R11.0 x3 daysa/w abd pain and diarrheatr ial zofrankeep diet bland Abdominal pain 72167520 R10.9 x3 daysa/w nausea and diarrheaac ross [...] seek immediate re-evaluat ion History of asthma 219038 007 Z87.09 c/o chest tightness with working out, feels like she can't get a deep breath inh/o asthma as a young childreque sting albuterol inhaler Depression screening 171 466703 Z13.31 PHQ 0 Health Concerns Section Related Observation LastModified by Organization Detai ls LastModified Time None Recorded Concern Status LastModified by Organization Details LastModified Time None Recorded Advance Directives Directive N: Payers Encounter Date Sequence Insurance Name Policy Number Policy Christianson Covered Member ID Christianson Member ID Guarantor Name 12/19/2020 1 [facility] PRIOR TO 03/22/2021 (MEDICAID REPLACEMENT - HMO) Leoncio Lazaro [id number] Leoncio Lazaro 04/10/2022 1 [facility] PRIOR TO 03/22/2021 (MEDICAID REPLACEMENT - HMO) Leoncio Lazaro [id number] Leoncio Lazaro 11/27/2022 1 [facility] ON OR AFTER 03/22/21 (MEDICAID REPLACEMENT - HMO) Leoncio Lazaro [id number] Leoncio Lazaro 01/01/2023 1 [facility] ON OR AFTER 03/22/21 (MEDICAID REPLACEMENT - HMO) Leoncio Lazaro [id number] Leoncio Lazaro 05/20/2023 1 [facility] ON OR AFTER 03/22/21 (MEDICAID REPLACEMENT - HMO) Leoncio Lazaro [id number] Leoncio Lazaro Notes Date Note Type Note [...] nausea, vomiting AYAZ WAGNER Attn: Accounting,[address] [facility], [place], [address], [facility] 12/20/2020 07:45:36 04/10/2022 text/html Leoncio presents for [...] sob, palpitations AYAZ WAGNER Attn: Accounting,[address] [facility], [place], [address], [facility] 04/10/2022 14:45:45 11/27/2022 text/html Pt presents with stye to R eye x1 yr. States that inside corner of R eye gets swollen, becomes scratchy, irritating and causes vision issues. Symptoms are worse in the morning. She has used eye drops and warm compresses w/o relief. AYAZ MOORE Attn: Accounting,[address] [facility], [place], [address], [facility] 11/27/2022 13:56:37 01/01/2023 text/html C/O irritating l ump in the medial 1/3 of RUL.since a few months Anne Cespedes MD [address], [place], [address], [facility] 01/01/2023 14:32:54 05/20/2023 text/html Pt presents with [...] or constipation. AYAZ MOORE Attn: Accounting,[address] [facility], [place], [address], [facility] 05/21/2023 11:11:58 OBGyn Episode Ob Episode Information Episode Created Date Number of Fetuses Patient Bloodtype Patient rh Status Prepregnancy Weight lbs Domestic Partner Domestic Partner Phone Father Name Speech Lang Path Status 11/19/19 20 1 CLOSED Fetus Data First Name Last Name Admitted to NICU Weight (g) Sex Living Outcome Pediatric Complications Fetus ID Race Codes Race Delivery Type 3515.33 8 Full Term [id number] Only Ryder Calculation Initial Ryder Date Initial [...] Complications Tubal Sterilization Discharge Date Comments 8 Regional- idural 39 false 29.5 Discharge Information Feeding Method Contraceptive Method Maternal HG B and HCT Levels
--- OUTSIDE RECORDS SUMMARY | 2024-12-20 14:05 | XMS_ITS | CONTINUITY OF CARE DOCUMENT ---
Author Name nasima nasima Address Unknown Organization [facility] Address [address] [place] [address] [address] [place] [address] Phone [phone] Care Team Providers Care Helper Shear Operator Name Role Phone Leo MARINELLI, Carla Unavailable [phone] AILYN EVANS MD Unavailable Unav ailable AILYN EVANS MD Unavailable Unav ailable INSURANCE PROVIDERS Payer name Policy type / Coverage type [place] red republican ID [id number] PAY [id number]
--- OUTSIDE RECORDS SUMMARY | 2024-12-20 14:05 | XMS_ITS | Data Portability ---
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 Discussed plan. [email or web address] Not available 11/25/2024 12:22:54 Plan of Treatment Reminders Order Date Submit Date Provider Last Modified By Organization Details Last Modified Time Details Appointments POST 2024 08:45A Tristan BARONE MD Not available Not available Not available Lab None recorded. Referral None recorded. Procedures None recorded. Surgeries None recorded. Imaging US, obstetric , follow-up 2024 025 [email or web address] [place], [address], [place], [address], 11/15/2024 21:14:59 Medication Orders labetalol 200 mg tablet 2024 025 [email or web address] [facility] [id number], [address], 12/15/2024 18:59:26 hydrocodo ne 5 mg-acetam inophen 300 mg tablet 2024 025 JOSE ALBERTO [facility] [id number] [place] [address], [address], 12/09/2024 14:48:14 Patient TargetsNo targets recorded. Patient InstructionsNo instructions recorded. Reason for Referral None Reported. Results Created Date Observation Date Name Description Value Unit Range Abnormal Flag Note LastModifiedBy Organization Detail LastModifiedTime 11/15/19 25 11/15/2024 CULTU RE: GROUP B STREP SCREE N, [...] Resul ting Lab: [facility] [address] [facility] [address] Tel: CULTU RE ----- ----- ----- --- No Group B strep isola ruben at 2 days (dahlia ctive broth enhan cemen t) Not Available [facility] (Lab) [address] [place], [address], 11/18/2024 16:38:03 11/23/19 25 11/22/2024 CMP(C OMPRE HENSI VE METAB OLIC PANEL ) sodium 138 mmol/ L 133-14 6 Not Available [facility] (Lab) [address] [place], [address], 11/23/2024 12:55:30 11/23/19 25 11/22/2024 CMP(C OMPRE HENSI VE METAB OLIC PANEL ) potassium 4.3 mmol/ L 3.5-5. 1 Not Available [facility] (Lab) [address] [place], [address], 11/23/2024 12:55:30 11/23/19 25 11/22/2024 CMP(C OMPRE HENSI VE METAB OLIC PANEL ) chloride 103 mmol/ L 98-107 Not Available [facility] (Lab) [address] [facility], [place], [address], 11/23/2024 12:55:30 11/23/19 25 11/22/2024 CMP(C OMPRE HENSI VE METAB OLIC PANEL ) carbon dioxide 27 mmol/ L 21-31 Not Available [facility] (Lab) [address] [facility], [place], [address], 11/23/2024 12:55:30 11/23/19 25 11/22/2024 CMP(C OMPRE HENSI VE METAB OLIC PANEL ) anion gap 8 mmol/ L 4-13 Not Available [facility] (Lab) [address] [facility], [place], [address], 11/23/2024 12:55:30 11/23/19 25 11/22/2024 CMP(C OMPRE HENSI VE METAB OLIC PANEL ) blood urea nitrogen 8 mg/dL 7-25 Not Available [facility] (Lab) [address] [facility], [place], [address], 11/23/2024 12:55:30 11/23/19 25 11/22/2024 CMP(C OMPRE HENSI VE METAB OLIC PANEL ) creatinine 0.62 mg/dL 0.60-1 .30 Not Available [facility] (Lab) [address] [facility], [place], [address], 11/23/2024 12:55:30 11/23/19 25 11/22/2024 CMP(C OMPRE HENSI VE METAB OLIC PANEL ) egfrcr (CKD-epi 2020) >90 mL/mi n/1.7 3_m2 >=60 Not Available [facility] (Lab) [address] [facility], [place], [address], 11/23/2024 12:55:30 11/23/19 25 11/22/2024 CMP(C OMPRE HENSI VE METAB OLIC PANEL ) calcium 8.7 mg/dL 8.3-10 .5 Not Available [facility] (Lab) [address] [facility], [place], [address], 11/23/2024 12:55:30 11/23/19 25 11/22/2024 CMP(C OMPRE HENSI VE METAB OLIC PANEL ) glucose 58 mg/dL 70-100 low Not Available [facility] (Lab) [address] [facility], [place], [address], 11/23/2024 12:55:30 11/23/19 25 11/22/2024 CMP(C OMPRE HENSI VE METAB OLIC PANEL ) protein, total 5.9 g/dL 6.4-8. 3 low Not Available [facility] (Lab) [address] [facility], [place], [address], 11/23/2024 12:55:30 11/23/19 25 11/22/2024 CMP(C OMPRE HENSI VE METAB OLIC PANEL ) albumin 3.3 g/dL 3.5-5. 0 low Not Available [facility] (Lab) [address] [facility], [place], [address], 11/23/2024 12:55:30 11/23/19 25 11/22/2024 CMP(C OMPRE HENSI VE METAB OLIC PANEL ) ALT 16 units /L 9-43 Not Available [facility] (Lab) [address] [facility], [place], [address], 11/23/2024 12:55:30 11/23/19 25 11/22/2024 CMP(C OMPRE HENSI VE METAB OLIC PANEL ) alkaline phosphatase 159 units /L 34-104 high Not Available [facility] (Lab) [address] [place], [address], 11/23/2024 12:55:30 11/23/19 25 11/22/2024 CMP(C OMPRE HENSI VE METAB OLIC PANEL ) AST 18 units /L 13-39 Not Available [facility] (Lab) [address] [place], [address], 11/23/2024 12:55:30 11/23/19 25 11/22/2024 CMP(C OMPRE HENSI VE METAB OLIC PANEL ) bilirubin, total 0.3 mg/dL 0.2-1. 2 Not Available [facility] (Lab) [address] [facility], [place], [address], 11/23/2024 12:55:30 11/23/19 25 11/22/2024 BILE ACIDS , TOTAL bile acids, total 2 umol/ L 0-10 Test Perfo rmed by: [facility] [address] [address] Not Available [facility] (Lab) [address] [facility], [place], [address], 11/23/2024 12:55:31 12/10/19 25 12/09/2024 CMP/C BC/UR IC ACID WBC 10.5 10'3/ uL 3.5-10 .5 Not Available [facility] (Lab) [address] [facility], [place], [address], 12/10/2024 06:54:28 12/10/19 25 12/09/2024 CMP/C BC/UR IC ACID RBC 3.68 10'6/ uL (based on docume nted legal sex) 3.80-5 .20 low Not Available [facility] (Lab) [address] [facility], [place], [address], 12/10/2024 06:54:28 12/10/19 25 12/09/2024 CMP/C BC/UR IC ACID HGB 11.4 g/dL (based on docume nted legal sex) 11.6-1 5.4 low Not Available [facility] (Lab) [address] [place], [address], 12/10/2024 06:54:28 12/10/19 25 12/09/2024 CMP/C BC/UR IC ACID HCT 33.9 % (based on docume nted legal sex) 34.0-4 5.0 low Not Available [facility] (Lab) [address] [facility], [place], [address], 12/10/2024 06:54:28 12/10/19 25 12/09/2024 CMP/C BC/UR IC ACID MCV 92.1 fL 80.0-9 9.0 Not Available [facility] (Lab) [address] [facility], [place], [address], 12/10/2024 06:54:28 12/10/19 25 12/09/2024 CMP/C BC/UR IC ACID MCH 31.0 pg 27.0-3 4.0 Not Available [facility] (Lab) [address] [facility], [place], [address], 12/10/2024 06:54:28 12/10/19 25 12/09/2024 CMP/C BC/UR IC ACID MCHC 33.6 g/dL 32.0-3 5.5 Not Available [facility] (Lab) [address] [facility], [place], [address], 12/10/2024 06:54:28 12/10/19 25 12/09/2024 CMP/C BC/UR IC ACID RDW 12.4 % 11.0-1 5.0 Not Available [facility] (Lab) [address] [facility], [place], [address], 12/10/2024 06:54:28 12/10/19 25 12/09/2024 CMP/C BC/UR IC ACID plt 352 10'3/ uL 150-40 0 Not Available [facility] (Lab) [address] [place], [address], 12/10/2024 06:54:28 12/10/19 25 12/09/2024 CMP/C BC/UR IC ACID MPV 10.3 fL 8.8-12 .1 Not Available [facility] (Lab) [address] [place], [address], 12/10/2024 06:54:28 12/10/19 25 12/09/2024 CMP/C BC/UR IC ACID neutrophils 65.3 % 34.0-7 3.0 Not Available [facility] (Lab) [address] [facility], [place], [address], 12/10/2024 06:54:28 12/10/19 25 12/09/2024 CMP/C BC/UR IC ACID lymphocytes 23.9 % 15.0-5 0.0 Not Available [facility] (Lab) [address] [facility], [place], [address], 12/10/2024 06:54:28 12/10/19 25 12/09/2024 CMP/C BC/UR IC ACID monocytes 5.2 % 1.0-15 .0 Not Available [facility] (Lab) [address] [facility], [place], [address], 12/10/2024 06:54:28 12/10/19 25 12/09/2024 CMP/C BC/UR IC ACID eosinophils 2.6 % 0.0-8. 0 Not Available [facility] (Lab) [address] [facility], [place], [address], 12/10/2024 06:54:28 12/10/19 25 12/09/2024 CMP/C BC/UR IC ACID basophils 0.7 % 0.0-2. 0 Not Available [facility] (Lab) [address] [facility], [place], [address], 12/10/2024 06:54:28 12/10/19 25 12/09/2024 CMP/C BC/UR IC ACID immature granulocytes 2.3 % no define d refere nce range Immat ure Granu locyt es (IG) repre sents autom ated enume ratio n of Metam yeloc ytes, Myelo cytes and Promy elocy charli when IG is < 5%. Blast s are not inclu ded in IG and repor ruben separ ately if prese nt. Not Available [facility] (Lab) [address] [facility], [place], [address], 12/10/2024 06:54:28 12/10/19 25 12/09/2024 CMP/C BC/UR IC ACID absolute neutrophils 6.8 10'3/ uL 1.5-8. 0 Not Available [facility] (Lab) [address] [facility], [place], [address], 12/10/2024 06:54:28 12/10/19 25 12/09/2024 CMP/C BC/UR IC ACID absolute lymphocytes 2.5 10'3/ uL 1.0-4. 0 Not Available [facility] (Lab) [address] [facility], [place], [address], 12/10/2024 06:54:28 12/10/19 25 12/09/2024 CMP/C BC/UR IC ACID absolute monocytes 0.5 10'3/ uL 0.2-1. 0 Not Available [facility] (Lab) [address] [facility], [place], [address], 12/10/2024 06:54:28 12/10/19 25 12/09/2024 CMP/C BC/UR IC ACID absolute eosinophils 0.3 10'3/ uL 0.0-0. 6 Not Available [facility] (Lab) [address] [facility], [place], [address], 12/10/2024 06:54:28 12/10/19 25 12/09/2024 CMP/C BC/UR IC ACID absolute basophils 0.1 10'3/ uL 0.0-0. 3 Not Available [facility] (Lab) [address] [facility], [place], [address], 12/10/2024 06:54:28 12/10/19 25 12/09/2024 CMP/C BC/UR IC ACID absolute immature granulocytes 0.2 10'3/ uL 0.00-0 .10 high Refer ence range s for nonbi nary/ inter sex or unspe cifie d gende r patie nts have not been estab lishe fahad Pleas e refer to the follo wing table for range s estab lishe d for cisge nder patie nts and evalu ate in the clini judy doug xt of the indiv idual patie nt: https ://davion wood book. nm.or g/gen derx Not Available [facility] (Lab) [address] [facility], [place], [address], 12/10/2024 06:54:28 12/10/19 25 12/09/2024 CMP/C BC/UR IC ACID uric acid 6.7 mg/dL 2.3-6. 6 high Not Available [facility] (Lab) [address] [place], [address], 12/10/2024 06:54:28 12/10/19 25 12/09/2024 CMP/C BC/UR IC ACID sodium 141 mmol/ L 133-14 6 Not Available [facility] (Lab) [address] [place], [address], 12/10/2024 06:54:28 12/10/19 25 12/09/2024 CMP/C BC/UR IC ACID potassium 4.2 mmol/ L 3.5-5. 1 Not Available [facility] (Lab) [address] [place], [address], 12/10/2024 06:54:28 12/10/19 25 12/09/2024 CMP/C BC/UR IC ACID chloride 107 mmol/ L 98-107 Not Available [facility] (Lab) [address] [place], [address], 12/10/2024 06:54:28 12/10/19 25 12/09/2024 CMP/C BC/UR IC ACID carbon dioxide 26 mmol/ L 21-31 Not Available [facility] (Lab) [address] [place], [address], 12/10/2024 06:54:28 12/10/19 25 12/09/2024 CMP/C BC/UR IC ACID anion gap 8 mmol/ L 4-13 Not Available [facility] (Lab) [address] [facility], [place], [address], 12/10/2024 06:54:28 12/10/19 25 12/09/2024 CMP/C BC/UR IC ACID blood urea nitrogen 10 mg/dL 7-25 Not Available [facility] (Lab) [address] [facility], [place], [address], 12/10/2024 06:54:28 12/10/19 25 12/09/2024 CMP/C BC/UR IC ACID creatinine 0.72 mg/dL 0.60-1 .30 Not Available [facility] (Lab) [address] [facility], [place], [address], 12/10/2024 06:54:28 12/10/19 25 12/09/2024 CMP/C BC/UR IC ACID egfrcr (CKD-epi 2020) >90 mL/mi n/1.7 3_m2 >=60 Not Available [facility] (Lab) [address] [facility], [place], [address], 12/10/2024 06:54:28 12/10/19 25 12/09/2024 CMP/C BC/UR IC ACID calcium 8.8 mg/dL 8.3-10 .5 Not Available [facility] (Lab) [address] [place], [address], 12/10/2024 06:54:28 12/10/19 25 12/09/2024 CMP/C BC/UR IC ACID glucose 75 mg/dL 70-100 Not Available [facility] (Lab) [address] [place], [address], 12/10/2024 06:54:28 12/10/19 25 12/09/2024 CMP/C BC/UR IC ACID protein, total 5.9 g/dL 6.4-8. 3 low Not Available [facility] (Lab) [address] [place], [address], 12/10/2024 06:54:28 12/10/19 25 12/09/2024 CMP/C BC/UR IC ACID albumin 3.3 g/dL 3.5-5. 0 low Not Available [facility] (Lab) [address] [facility], [place], [address], 12/10/2024 06:54:28 12/10/19 25 12/09/2024 CMP/C BC/UR IC ACID ALT 33 units /L 9-43 Not Available [facility] (Lab) [address] [facility], [place], [address], 12/10/2024 06:54:28 12/10/19 25 12/09/2024 CMP/C BC/UR IC ACID alkaline phosphatase 165 units /L 34-104 high Not Available [facility] (Lab) [address] [place], [address], 12/10/2024 06:54:28 12/10/19 25 12/09/2024 CMP/C BC/UR IC ACID AST 16 units /L 13-39 Not Available [facility] (Lab) [address] [facility], [place], [address], 12/10/2024 06:54:28 12/10/19 25 12/09/2024 CMP/C BC/UR IC ACID bilirubin, total 0.2 mg/dL 0.2-1. 2 Not Available [facility] (Lab) [address] [place], [address], 12/10/2024 06:54:28 12/10/19 25 12/09/2024 PROTE IN/CR EATIN INE RATIO , URINE creatinine, urine 87.7 mg/dL R-No refer ence range estab lishe d for this assay Not Available [facility] (Lab) [address] [place], [address], 12/10/2024 06:54:29 12/10/19 25 12/09/2024 PROTE IN/CR EATIN INE RATIO , URINE protein, urine 98 mg/dL R-No refer ence range estab lishe d for this assay Not Available [facility] (Lab) [address] [facility], [place], [address], 12/10/2024 06:54:29 12/10/19 25 12/09/2024 PROTE IN/CR EATIN INE RATIO , URINE protein/crea tinine ratio, urine 1.12 . No Refer ence Range avail able for Rando m Urine s. A prote in to creat inine ratio of >=0.1 9 is a good predi ctor of signi fican t prote inuri a. A level of <0.14 can rule out signi fican t prote inuri a. Not Available [facility] (Lab) [address] [facility], [place], [address], 12/10/2024 06:54:29 11/15/19 25 11/15/2024 US, obste tric, follo w-up No observ ation record ed. [email or web address] [place] [address], [place], [address], 11/15/2024 13:12:13 11/15/19 25 11/15/2024 US, obste tric, follo w-up No observ ation record ed. [email or web address] [address], [place], [address], 11/15/2024 22:55:12 Result Notes None recorded. Problems Name Problem SNOMED Code Status Onset Date Resolution Date Notes Provider Name and Address Organization Details Recorded Time Single live [id number] Completed 201702/28/2021 Single live ;Re corded Elsewher e: No Locat ion: Noé willard [facility] S ource: EHR Black Top Paver Operator danielle: N Practi ce ID: 0001 Johnny lable Time: 12:00:00 PM Melissa Kathie [place], [place] - [facility] 15:45:22 Insertio n of intraute rine contrace ptive device Completed 201702/28/2021 Encounte r for insertio n of intraute rine contrace ptive device;R ecorded Elsewher e: No Locat ion: [facility] S ource: EHR Black Top Paver Operator danielle: N Sheldonti ce ID: 0001 Johnny lable Time: 03:15:00 PM Melissa Vázquez [facility] 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 15:45:25 Rubella screenin g status [id number] Completed 201702/28/2021 Encounte r for antenata l screenin g, unspecif ied;Connor rded Elsewher e: No Locat ion: [facility] S ource: EHR Black Top Paver Operator danielle: N Lizett ce ID: 0001 Johnny lable Time: 10:30:00 AM Melissaterrence Vázquez [facility] 15:45:20 Pregnanc y, childbir th and puerperi um finding Completed 201702/28/2021 Encntr for suprvsn of normal first preg, second trimeste r;Record ed Elsewher e: No Locat ion: [facility] S ource: EHR Black Top Paver Operator danielle: Filiberto Chungti ce ID: 0001 Johnny lable Time: 10:30:00 AM Melissa [facility] 15:45:12 Gestatio n period, 30 weeks [id number] Completed 201702/28/2021 30 weeks gestatio n of pregnanc y;Record ed Elsewher e: No Locat ion: [facility] S ource: EHR Black Top Paver Operator danielle: N Practi ce ID: [id number] Johnny lable Time: 04:30:00 PM Melissa jackson [facility] 15:40:54 Gestatio n period, 26 weeks [id number] Completed 201702/28/2021 26 weeks gestatio n of pregnanc y;Record ed Elsewher e: No Locat ion: [facility] S ource: EHR Black Top Paver Operator danielle: N Sheldonti ce ID: 0001 Johnny lable Time: 02:30:00 PM Melissa jackson [facility] 15:40:52 Pregnanc y, childbir th and puerperi um finding Completed 201702/28/2021 Encntr for suprvsn of normal first preg, third trimeste r;Record ed Elsewher e: No Locat ion: [facility] S ource: EHR Black Top Paver Operator [place]: N Sheldonti ce ID: [id number] Johnny lable Time: 10:00:00 AM Melissa jackson [facility] 15:45:[address] Concept Completed 201702/28/2021 Maternal care for oth abnormal ity and damage, unsp;Rec orded Elsewher e: No Locat ion: [facility] S ource: EHR Black Top Paver Operator danielle: N Sheldonti ce ID: [id number] Johnny lable Time: 04:30:00 PM Melissa jackson [facility] 15:45:24 Gestatio n period, 22 weeks [id number] Completed 201702/28/2021 22 weeks gestatio n of pregnanc y;Record ed Elsewher e: No Locat ion: [facility] S ource: EHR Black Top Paver Operator danielle: N Sheldonti ce ID: [id number] Johnny lable Time: 03:30:00 PM Melissa jackson [facility] 15:40:51 Contrace ption care manageme nt Completed 201802/28/2021 Encounte r for contrace ptive manageme nt, unspecif ied;Connor rded Elsewher e: No Locat ion: [facility] S ource: EHR Black Top Paver Operator danielle: N Sheldonti ce ID: 0001 Johnny lable Time: 01:30:00 PM Melissa Vázquez [facility] 1 15:40:44 Normal pregnanc y in multigra reina [id number] Completed 201702/28/2021 Encounte r for suprvsn of normal pregnanc y, third trimeste r;Record ed Elsewher e: No Locat ion: [facility] S ource: EHR Black Top Paver Operator danielle: N Sheldonti ce ID: [id number] Johnny lable Time: 09:00:00 AM Melissa Vázquez [facility] 15:41:20 Antenata l screenin g for malforma tion Completed 201702/28/2021 Encounte r for antenata l screenin g for malforma tions;Re corded Elsewher e: No Locat ion: [facility] S ource: EHR Black Top Paver Operator danielle: N Sheldonti ce ID: 0001 Johnny lable Time: 04:00:00 PM Melissa Vázquez [facility] 1 15:40:42 Pregnanc y detectio n examinat ion Completed 201702/28/2021 Encounte r for pregnanc y test, result positive ;Recorde d Elsewher e: No Locat ion: [facility] S ource: EHR Black Top Paver Operator danielle: N Practi ce ID: 0001 Johnny lable Time: 03:30:00 PM Melissa Vázquez [facility] 15:42:02 Pregnanc y test negative [id number] Completed 201702/28/2021 Encounte r for pregnanc y test, result negative ;Recorde d Elsewher e: No Locat ion: [facility] S ource: EHR Black Top Paver Operator danielle: N Practi ce ID: 0001 Johnny lable Time: 03:15:00 PM Melissa jackson [facility] 15:45:09 Amenorrh ea [id number] Completed 201702/28/2021 Amenorrh ea;Recor ded Elsewher e: No Locat ion: No[facility] will[facility] S ource: EHR Black Top Paver Operator danielle: N Practi ce ID: 0001 Johnny lable Time: 03:30:00 PM Melissa jackson [facility] 15:40:37 Antenata l screenin g Completed 201702/28/2021 Encounte r for other specifie d antenata l screenin g;Practi ce ID: 0001 Melissa Vázquez [facility] 15:40:40 Pregnanc y-induce d hyperten moi Completed 201702/28/2021 Gestatio nal htn w/o signific ant proteinu blayne, unsp trimeste r;Practi ce ID: 0001 Melissa Vázquez [facility], [facility] 15:45:17 Gestatio n period, 38 weeks [id number] Completed 201702/28/2021 38 weeks gestatio n of pregnanc y;Practi ce ID: 0001 Melissa Vázquez [facility], [facility] 15:40:58 Head not engaged [id number] Completed 201702/28/2021 Maternal care for high head at term, not applicab le or unsp;Pra ctice ID: 0001 [facility] 15:41:13 Failure of cervical dilation [id number] Completed 201702/28/2021 Primary inadequa te contract ions;Pra ctice ID: 0001 Melissa Vázquez [facility] 15:40:48 Gestatio n period, 39 weeks [id number] Completed 201702/28/2021 39 weeks gestatio n of pregnanc y;Practi ce ID: 0001 Melissa Vázquez [facility] 1 15:41:00 Lochia finding Completed 201702/28/2021 Encounte r for routine postpart um follow-u p;Practi ce ID: 0001 [facility] 15:41:18 Contrace ptive sheath status [id number] Completed 201802/28/2021 Encounte r for routine checking of intraute rine contrace p dev;Prac trinidad ID: 0001 [facility] 15:40:46 Pregnanc y [id number] Completed 202312/09/2024 Negra Ye [facility] 5 14:24:47 Past pregnanc y history of section [id number] Completed NRFHR, failure to progress , TO REPEAT Keny Barone MD [address], [place], [address], [facility] 4 12:42:27 Asthma [id number] Completed Debora Franklin CNM [address], [place], [address], [facility] 4 17:12:26 Heartbur n [id number] Completed Keny Barone MD [address], [place], [address], [facility] 4 13:21:22 Varicose veins in pregnanc y [id number] Completed suprapub ic Keny Barone MD [address], [place], [address], [facility] 12:43:44 Female steriliz ation Completed Consider owen Salpinge ctomy Keny Barone MD [address], [place], [address], [facility] 10:08:56 Problem Notes None recorded. Procedures Surgical History Date Name Laterality Status Provider Name and Address Organization Details Recorded Time 12/03/19 25 SECTION (SURG) completed Padmaja Lawrence [facility] 12/03/2024 09:24:12 03/29/20 24 Colposcopy completed Keny Barone MD [address], [place], [address], [facility] 03/29/2024 15:30:04 03/29/20 24 Colposcopy completed Negra Ye [facility] 03/29/2024 14:44:39 03/29/20 24 Colposcopy completed Negra Ye [facility] 03/29/2024 14:45:35 03/04/20 24 IUD Removal completed ROYCE Oglesby- [address], [place], [address], [facility] 03/04/2024 16:51:48 03/04/20 24 Date of Last Pap Smear completed Joyce Lugo [facility] 06/07/2024 10:58:36 07/04/20 22 IUD Insertion completed ROYCE Black [address], [place], [address], [facility] 07/04/2022 16:28:00 06/10/20 18 section completed Joyce Lugo [facility] 06/07/2024 15:30:35 09/22/19 09 extraction of wisdom tooth completed Joyce Lugo [facility] 06/07/2024 15:31:20 09/22/19 04 Oral surgery procedure completed Joyce Lugo [facility] 06/07/2024 15:30:57 Imaging Results Imaging Date Name Status LastModified by Organiz ation Details LastModified Time 11/15/2024 US, obstetric, follow-up completed [email or web address] [place] [address], [place], [address], 11/15/2024 13:12:13 11/15/2024 US, obstetric, follow-up completed [email or web address] [address], [place], [address], 11/15/2024 22:55:12 Procedure Notes None recorded. Medical Equipment None Reported. Allergies Allergen ID Allergen Name Allergen Category Reaction Reaction Severity Criticality Documentation Date Start Date Code Code System Note Provider Name and Address Organization Details Recorded Time 2573 codeine medicatio n Not available Not available Not available 07/24/2020 2670 RxNorm Alissa Traceyte reid [facility] 2 15:13:30 2574 amoxicill in medicatio n Not available Not available Not available 07/24/2020 723 RxNorm Joyce Lugo [facility] 4 15:31:41 892 metronida zole medicatio n Not available Not available Not available 02/25/2020 6922 RxNorm Melissa Vázquez [facility] 0 16:44:18 893 Product containin g penicilli n (product) medicatio n Not available Not available Not available 02/25/2020 88670 8001 SNOMED Melissa Vázquez [facility] 0 16:44:31 Medications Name Sig Start Date Stop Date Status Note LastModified by Organization Details LastModified Time cyclobenz aprine 10 mg tablet TAKE 1 TABLET BY MOUTH THREE TIMES A DAY NEEDED FOR MUSCLE SPASMS 03/04 completed Not Available Not Available Not Available Mirena 21 mcg/24 hr (up to 8 years) 52 mg intrauter ine device 02/28 completed Prescrib hector Crenshaw e: Yes Loca tion: Noé willard [facility] Tristan yusuf By: [email or web address] E ncoramoner DateTime : 07/21/20 18 03:15:00 PM Not Available Not Available Not Available doxycycli ne hyclate 100 mg capsule 02/28 completed Not Available Not Available Not Available cefuroxim e axetil 250 mg tablet 02/24 completed Not Available Not Available Not Available labetalol 200 mg tablet Take 2 tablets twice a day by oral route. 2024 active Not Available Not Available Not Avai lable clindamyc in HCl 300 mg capsule TAKE [...] MOUTH EVERY 6 HOURS NEEDED FOR PAIN 12/15 completed Not Available Not Available Not Available [...] Elsewher e: No Locat ion: Noé willard [facility] odify By: [email or web address] Rodriguezyolie r DateTime : 01/20/20 18 11:47:21 AM [...] Prescrib ed Elsewher e: No Locat ion: Allisonpamela sudheer [facility] odify By: [email or web address] Michaelyolie r DateTime : 03/10/20 18 03:00:00 PM [...] completed Not Available Not Available Not Available .5 (28) 1.5 mg-30 mcg (21)/75 mg (7) tablet active Not Available Not Available Not Available famotidin e active Not Available Not Available Not Available active Not Available Not Avai lable Not Available hydrocodo ne 5 mg-acetam inophen 300 mg tablet TAKE 1 TABLET BY MOUTH EVERY 4 HOURS active Not Available Not Available No t Available 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 A 28 mg iron-1 mg-200 mg capsule take 1 capsule by oral route every day 07/08 completed Prescrib ed Elsewher e: No Locat ion: [facility] odify By: marii munizunter DateTime : 01/20/20 18 11:47:21 AM Not Available Not Available Not Available Allergy 04/02 completed Not Available Not Available Not Available 28 mg-800 mcg tablet 02/28 completed Prescrib ed Elsewher e: Yes Loca tion: [facility] odify By: marii Willard ncounter DateTime [...] Address Organization Details Last Updated DateTime 11/15/2024 46326.8113 4 g 131 mm[Hg] 89 mm[Hg] Negra Ye [place] - [facility] 11/15/2024 12:37:47 Date Recorded Body height Body mass index (BMI) Body weight Systolic blood pressure Diastolic blood pressure Provider Name and Address Organization Details Last Updated DateTime 11/25/2024 162.56 cm 31.6 kg/m2 78319 g 129 mm[Hg] 88 mm[Hg] [facility] 5 12:29:11 Date Recorded Body height Body mass index (BMI) Body weight Systolic blood pressure Diastolic blood pressure Provider Name and Address Organization Details Last Updated DateTime 12/09/2024 162.56 cm 30.2 kg/m2 12982.26 g 154 mm[Hg] 104 mm[Hg] [facility] 14:23:01 Date Recorded Body height Body mass index (BMI) Body weight Systolic blood pressure Diastolic blood pressure Systolic blood pressure Diastolic blood pressure Provider Name and Address Organization Details Last Updated DateTime 162.56 cm 28.5 kg/m2 73956.3 3 g 179 mm[Hg] 103 mm[Hg] 164 mm[Hg] 102 mm[Hg] [facility] 17:44:26 Social History Question Answer Notes LastModified by Organizat ion Details LastModified Time Tobacco Smoking Status Former Smoker Jeanne Ingram [facility] 08/05/2022 14:49:44 Do You Have An Advance Directive? No Information not available 04/02/2022 What Is Your Level Of Alcohol Consumption? None [email or web address] Information not available 06/07/2024 If You Are , What Was Your Level Of Alcohol Consumption Prior To ? Occasional [email or web address] Information not available 06/07/2024 How Many Years Have You Consumed Alcohol? 5 Information not available 04/02/2022 Are You Blind Or Do You Have Difficulty Seeing? No Information not available 04/02/2022 What Is Your Level Of Caffeine Consumption? Moderate [email or web address] Information not available 06/07/2024 How Much Tobacco [...] Or Vape? Current User Of Electronic Cigarettes [email or web address] Information not available 08/05/2022 What Is The Highest Grade Or Level Of School You Have Completed Or The Highest Degree You Have Received? [id number] Information not available 04/02/2022 Are There Any Guns Present In Your Home? No Information not available 04/02/2022 Do You Use Protection During Sex? No [email or web address] Information not available 06/07/2024 Do You Use Your Seat Belt Or Car Seat Routinely? Yes Information not available 04/02/2022 Do You Have Smoke And Carbon Monoxide Detectors In Your Home? Yes Information not available 04/02/2022 How Much Tobacco Do You Smoke? No Information not available 04/02/2022 Do You Feel Stressed (tense, Restless, Nervous, Or Anxious, Or Unable To Sleep At Night)? [id number] [email or web address] Information not available 06/07/2024 Do You Use Any Illicit Or Recreational Drugs? No Information not available 04/02/2022 Do You Use Sunscreen Routinely? Yes Information not available 04/02/2022 Have You Used IV Drugs? No Information not available 04/02/2022 Do You Or Have You Ever Used Any Other Forms Of Tobacco Or Nicotine? Yes [email or web address] Information not available 08/05/2022 Sex: Unknown Functional Status Question Answer Note LastModified by Organizat ion Details LastModified Time Do you have difficulty walking or climbing stairs? No [email or web address] Information not available 08/05/2022 Are you able to walk? [email or web address] Information not available 04/02/2022 Are you able to care for yourself? Yes [email or web address] Information not available 08/05/2022 Do you have [...] Code Diagnosis Note [id number] Keny Barone MD [place] [address] [address] 02/25/2020 14:13:16 03/03/2020 13:19:10 Gynecologic examination 08335245 Z01.419 This patient is here for her [...] prescribed . And sent to the pharmacy. [id number] Keny Barone MD [place] [address],[place] [address] 07/24/2020 11:55:51 07/24/2020 14:36:08 Hirsutism 816005708 L68.0 Contracept ion care management 076654094 Z30.9 this patient is a 30-year-ol d [...] androgens and to treat with spironolac tone. [id number] Keny Barone MD [place] [address],[place] [address] 02/28/2021 14:56:15 02/28/2021 16:35:36 Gynecologic examination 00634849 Z01.419 This patient is here for her annual exam. A thorough history was taken. A physical exam was performed. Age appropriat e routine health screening was ordered, performed, and discussed. Recommende d testing was ordered. She was asked to follow up in one year. She will be informed of any test results. [id number] ROYCE Black [place] [address] [address] 04/02/2022 15:02:17 04/02/2022 16:24:15 Contraception care management 995219691 Z30.9 Gynecologi c examination 22436376 Z01.419 Take Calcium with Vitamin D 1200mg [...] to elevated BP.She denies hx of DVT/PE, stroke/TN, cancer, or liver diseaseDoe s not want [...] C in 3 months for med check [id number] ROYCE Black [place] [address],[place] [address] 07/03/2022 13:47:44 07/03/2022 14:25:29 Contraception care management 444568515 Z30.9 Does not like SlyndWe discussed all [...] review of plan of care. Hot sweats 784147494 R61 [id number] ROYCE Black [place] [address] [address] 07/04/2022 15:54:14 07/04/2022 16:30:49 Insertion of intrauterine contraceptive device 93498489 Z30.430 She has been counseled on all [...] declined STI testing Contracept ion care management 274260226 Z30.9 [id number] Essence Wylie [facility] [address],[place] [address] 08/05/2022 14:49:36 08/05/2022 15:22:51 IUD check 525007194 Z30.431 (+) IUD strings seen on examHappy with Mirena IUDRTC in 1 year or sooner if needed Time spent in visit is a total of 15 mins with at least 50% of visit consisting of counseling and review of plan of care. [facility] 579359860 Z30.9 [id number] Latoya [facility] [address],[place] [address] 03/04/2024 16:21:31 03/04/2024 16:59:56 Gynecologic examination 59310473 Z01.419 Take Calcium with Vitamin D 1200mg [...] Labs PCP Removal of intrauterine contraceptive device 0103273790 Z30.432 It was explained that she may have bleeding or spotting after the removal of the device today as well. If cannot see the strings of this device we will need to get an US image to make that the device is still in place and not in an unobtainab le position. She expressed understand ing of all the above instructio ns. [id number] Keny Barone MD [place] [address],[place] [address] 03/29/2024 14:13:24 03/29/2024 15:59:42 Screening procedure 85493829 Z13.9 Abnormal c ervical Papanicolaou smear 561266197 R87.619 colposcopy was performed. She tolerated well. It was normal. It was unsatisfac tory, no ECC performed due to . [id number] [facility] [address],[place] [address] 04/28/2024 14:41:45 04/28/2024 16:00:41 [id number] Keny Barone MD [place] [address],[place] [address] 04/28/2024 14:42:05 04/28/2024 16:36:44 Amenorrhea 95423188 N91.2 this patient is a 34-year-ol d [...] begin routine care at her next visit. [id number] [facility] [address],[place] [address] 06/04/2024 13:54:18 06/04/2024 14:45:28 screening 174032967 Z36.82 Z3A.13 [id number] Debora ERoney Franklin [facility] [address],[place] [address] 06/07/2024 10:55:41 06/08/2024 09:30:37 Gestation period, 13 weeks 64647083 Z3A.13 Routine an tenatal care 609782039 Z3A.13 [id number] Keny Barone MD [place] [address],[place] [address] 06/30/2024 12:14:52 06/30/2024 13:39:17 Routine care 459157071 Z34.80 [id number] [facility] [address],[place] [address] 07/19/2024 10:16:52 07/19/2024 11:43:45 screening for malformation 591956478 Z36.3 Z3A.19 [id number] Keny Barone MD [place] [address],[place] [address] 07/19/2024 10:17:20 07/19/2024 12:51:20 Routine care 905451413 Z34.80 [id number] Keny Barone MD [place] [address],[place] [address] 08/12/2024 09:38:23 08/12/2024 10:17:19 Routine care 060514947 Z34.80 [id number] MD Iglesia Reyes [address],[place] [address] 09/09/2024 09:35:09 09/09/2024 10:31:50 Routine care 961780205 Z34.80 [id number] MD Iglesia Reyes [address],[place] [address] 09/24/2024 12:28:40 09/24/2024 13:36:26 Routine care 539231381 Z34.80 [id number] Keri Ricardo [place] [address],[place] [address] 10/08/2024 11:48:06 10/08/2024 12:32:26 Uterine size for dates discrepancy 581191295 O26.843 Z03.74 Z3A.31 [id number] Keny Barone MD [place] [address],[place] [address] 10/08/2024 11:48:20 10/08/2024 13:01:05 Routine care 739539450 Z34.80 [id number] Keny Barone MD [place] [address],[place] [address] 10/22/2024 10:19:45 10/22/2024 11:21:55 section following previous section 856181237 O34.219 [id number] Keny Barone MD [place] [address],[place] [address] 11/01/2024 09:39:59 11/01/2024 10:06:01 Routine care 088396373 Z34.80 [id number] Precious Montoya [place] [address],[place] [address] 11/15/2024 11:19:56 11/15/2024 12:06:08 Uterine size for dates discrepancy 538575568 O26.843 Z3A.36 [id number] Keny Barone MD [place] [address],[place] [address] 11/15/2024 11:20:34 11/15/2024 13:14:24 Routine care 139429357 Z34.80 [id number] MD Iglesia Reyes [address],[place] [address] 11/25/2024 11:16:16 11/25/2024 12:38:35 Routine care 537854941 Z34.80 [id number] MD Iglesia Reyes [address] [address] 12/02/2024 09:00:23 12/07/2024 03:52:41 [id number] Keny Barone MD [place] [address] [address] 12/09/2024 14:01:14 12/09/2024 14:49:36 Pre-eclampsia 147946113 O14.95 this patient is a 34-year-ol d female presents for postop follow-up. She is elevated blood pressures today her incision is clean dry intact. She agreed to monitor her blood pressures at home. We talked about [facility] for a couple of hours. We [...] with movement. To continue pain management . [id number] Keny Barone MD [place] [address] [address] 12/15/2024 17:02:56 12/16/2024 13:12:07 -induced hypertension 01853505 O13.9 34-year-ol d female presents for follow-up on gestationa l hypertensi on/preecla mpsia. She has some severe range pressures today. She is on 200 labetalol b.i.d.. We agreed to increase her labetalol to 400 b.i.d.. She is going to check her blood pressures at home. She is going to contact me for [place] values. She was given precaution s in detail. I spent over 20 minutes on her care in total. She was given precaution s, instructio ns on the medication . We talked about risks, benefits, and alternativ es. We discussed admission Health Concerns Section Related Observation LastModified by Organization Detai ls LastModified Time None Recorded Concern Status LastModified by Organization Details LastModified Time None Recorded Advance Directives Directive N: Payers Encounter Date Sequence Insurance Name Policy Number Policy Christianson Covered Member ID Christianson Member ID Guarantor Name 11/15/2024 1 [facility] ON OR AFTER 03/22/21 (MEDICAID REPLACEMENT - HMO) Leoncio Lazaro [id number] Leoncio Marta Lazaro 11/25/2024 1 [facility] ON OR AFTER 03/22/21 (MEDICAID REPLACEMENT - HMO) Leoncio Lazaro [id number] Leoncio Lozano Iveth 12/02/2024 1 [facility] ON OR AFTER 03/22/21 (MEDICAID REPLACEMENT - HMO) Leoncio Lazaro [id number] Leoncio Lozano Iveth 12/09/2024 1 [facility] ON OR AFTER 03/22/21 (MEDICAID REPLACEMENT - HMO) Leoncio Lazaro [id number] Leoncio Marta Lazaro 12/15/2024 1 [facility] ON OR AFTER 03/22/21 (MEDICAID REPLACEMENT - HMO) Leoncio Lazaro [id number] Leoncio Lazaro Notes Date Note Type Note [...] management. Keny Barone MD [address], [place], [address], [facility] 12/09/2024 14:48:34 12/15/2024 text/html 34-year-old amanda chong presents for follow-up on gestational hypertension/preec lampsia. She has some severe range pressures today. She is on 200 labetalol b.i.d.. We agreed to increase her labetalol to 400 b.i.d.. She is going to check her blood pressures at home. She is going to contact me for [place] values. She was given precautions in detail. I spent over 20 minutes on her care in total. She was given precautions, instructions on the medication. We talked about risks, benefits, and alternatives. We discussed admission Keny Barone MD [address], [place], [address], [place] [facility] 12/15/2024 18:59:40 OBGyn Episode Ob Episode Information Episode Created Date Number of Fetuses Patient Bloodtype Patient rh Status Prepregnancy Weight lbs Domestic Partner Domestic Partner Phone Father Name Pet Counselor Status 02/25/20 20 1 CLOSED Fetus Data First Name Last Name Admitted to NICU Weight (g) Sex Living Outcome Pediatric Complications Fetus ID Race Codes Race Delivery Type 3515.33 8 F Full Term 9 Primary Ryder Calculation Initial Ryder Date Initial [...] Domestic Partner Domestic Partner Phone Father Name Pet Counselor Status 06/07/20 24 1 B Positive 142 Calin Mcnair CLOSED Fetus Data First Name Last Name Admitted to NICU Weight (g) Sex Living Outcome Pediatric Complications Fetus ID Race Codes Race Delivery Type Areith false 3373.59 05 F true Full Term weight loss 22969 Repeat Problems Problem Notes Problem Name Start Date End Date Resolution Snomed Code Not e Female sterilization 15853239 Considering Salpingectomy Varicose veins in 3480142769 suprapubic Heartburn 06720292 Asthma 972603236 Past history of section 094338769 NRFHR, failure to progress, TO REPEAT Ryder [...] Ultra Sound Latest Days Gestation 0 0 Pre-nito Flowsheet Flowsheet Date 06/07/2024 Palacio Score Blood Edema Fundus Height Fundus Units Glucose Ketones Leukocytes Nitrite Labor Signs Protein Cervic Dilation Cervic Effacement Cervic Station none none trace Type Weight in lbs Pre/Post Dialysis Refused Weight 143.222696048821 BP Diastolic BP Location Tested BP Systolic [...] Type Weight in lbs Pre/Post Dialysis Refused 147.585787081015 BP Diastolic BP Location Tested BP Systolic [...] Type Weight in lbs Pre/Post Dialysis Refused 150.761178129001 BP Diastolic BP Location Tested BP Systolic [...] Type Weight in lbs Pre/Post Dialysis Refused 159.513781443871 BP Diastolic BP Location Tested BP Systolic [...] Type Weight in lbs Pre/Post Dialysis Refused 168.134943760532 BP Diastolic BP Location Tested BP Systolic [...] Type Weight in lbs Pre/Post Dialysis Refused 170.824634150399 BP Diastolic BP Location Tested BP Systolic [...] Weight in lbs Pre/Post Dialysis Refused Weight 173.761581048988 BP Diastolic BP Location Tested BP Systolic [...] Type Weight in lbs Pre/Post Dialysis Refused 177.271216989381 BP Diastolic BP Location Tested BP Systolic [...] Weight in lbs Pre/Post Dialysis Refused Weight 176.628040624940 BP Diastolic BP Location Tested BP Systolic [...] Type Weight in lbs Pre/Post Dialysis Refused 182.529984992801 BP Diastolic BP Location Tested BP Systolic [...] Weight in lbs Pre/Post Dialysis Refused Weight 184.078436262270 BP Diastolic BP Location Tested BP Systolic [...] Weight in lbs Pre/Post Dialysis Refused Weight 176.629598563373 BP Diastolic BP Location Tested BP Systolic [...]
--- OUTSIDE RECORDS SUMMARY | 2024-12-20 14:14 | XMS_ITS | CONTINUITY OF CARE DOCUMENT ---
Author Name nasima nasima Address Unknown Organization [facility] Address [address] [place] [address] [address] [place] [address] Phone [phone] Care Team Providers Care Coating Inspector Name Role Phone Leo MARINELLI, Carla Unavailable AILYN EVANS MD Unavailable Unav ailable AILYN EVANS MD Unavailable Unav ailable INSURANCE PROVIDERS Payer name Policy type / Coverage type White red libertarian ID SELF PAY [id number]
[2024-12-20 14:18] LABS: Thyroid Stimulating Hormone 0.642 uIU/mL (0.465-4.680)
[2024-12-20 15:17] LABS: Add Urine Microscopic? YES; Appearance Urine Clear (Clear); Bacteria Urine Rare /hpf; Bilirubin Urine Negative (Negative); Blood Urine 2+ (Negative); Color Urine Yellow (Yellow); Glucose Urine UA Negative (Negative); Ketones Urine Negative (Negative); Leukocyte Esterase Ur 2+ LEU/UL (Negative); Nitrate Urine Negative (Negative); Non Pathogenic Casts 0-2; Protein Urine Negative (Negative); RBC Urine 0-2 /hpf (0-2); Specific Grav Ur 1.011 (1.001-1.035); Squamous Epithelial Cell Urine None Seen /hpf (Few); Urobilinogen Urine 0.2 mg/dL (<2.0); WBC Urine 21-50 /hpf (0-3); pH Urine 5.5 (5.0-9.0)
[2024-12-20] MEDS: SODIUM CHLORIDE 0.9% IV 1,000 ML 999 ML IV CONT (16:05)
== END 2024-12-20 18:46 | disposition home or self-care (01) ==
PROVIDERS: Registered Nurse; Emergency Provider Emergency Medicine; PCP Family Medicine
DX: O86.20 Urinary tract infection following delivery, unspecified (principal); N39.0 Urinary tract infection, site not specified; O99.893 Other specified diseases and conditions complicating puerperium; R55 Syncope and collapse; T44.8X5A Adverse effect of centrally-acting and adrenergic-neuron-blocking agents, initial encounter; O13.5 Gestational [pregnancy-induced] hypertension without significant proteinuria, complicating the puerperium; O99.335 Smoking (tobacco) complicating the puerperium; F17.290 Nicotine dependence, other tobacco product, uncomplicated; O89 Complications of anesthesia during the puerperium
CPT/HCPCS: 36415; 70450; 80053; 81001; 82948; 84443; 84484; 85025; 85610; 85730; 87086; 93005; 96360; 99284; J7030